=== PATIENT | female | born 1955 | race Caucasian/White ===

== ENCOUNTER → 2022-02-15 09:34 | Outpatient (BNVA) | payer OTHER, SELFPAY | PROVIDERS: PCP Physician Assistant; Visit Provider Nurse Practitioner Family | DX: E11.40 Type 2 diabetes mellitus with diabetic neuropathy, unspecified (principal); M54.16 Radiculopathy, lumbar region; M62.838 Other muscle spasm; M47.816 Spondylosis without myelopathy or radiculopathy, lumbar region | CPT/HCPCS: 99202 ==

== ENCOUNTER → 2022-06-20 11:35 | Outpatient (BNVA) | payer OTHER, SELFPAY | PROVIDERS: PCP Physician Assistant; Visit Provider Nurse Practitioner Family | DX: M47.26 Other spondylosis with radiculopathy, lumbar region (principal); M48.062 Spinal stenosis, lumbar region with neurogenic claudication; M62.838 Other muscle spasm; M51.36 Other intervertebral disc degeneration, lumbar region | CPT/HCPCS: 99212 ==

== ENCOUNTER → 2022-07-18 08:57 | Outpatient (BNVA) | payer OTHER, SELFPAY | PROVIDERS: PCP Physician Assistant; Visit Provider Nurse Practitioner Family | DX: E11.40 Type 2 diabetes mellitus with diabetic neuropathy, unspecified (principal); M51.36 Other intervertebral disc degeneration, lumbar region | CPT/HCPCS: 99212; J7336 ==

== ENCOUNTER 2022-11-11 12:53 | Outpatient (AMB) | payer OTHER, SELFPAY ==
--- NOTE | 2022-11-11 12:54 | A.OFFVIS_ITS ---
Intake Vital Signs 11/11/22 13:00 11/11/22 14:00 11/11/22 14:01 Height 5 ft 2 in Weight 185 lb 8 oz BMI 33.9 BP 131/60 144/73 H 134/66 Blood Pressure Location Lt brachial Lt brachial Lt brachial Position Sitting Sitting Sitting Pulse 94 91 94 Pulse Source Pulse Oximeter Pulse Oximeter Pulse Oximeter Pulse Oximetry (%) 97 98 98 Oxygen Delivery Method Room Air Room Air Room Air Comment 15 mins after qutenza application 30 mins after qutenza application Intake Visit Reasons: QUTENZA Intake Note: Teri comes in today for qutenza application to bilateral feet, Lot# [id number], Exp, [facility]- [id number]. Pain today 6.08/24 Bar Tender Required: Yes Allergies Penicillins Allergy (Unknown, Verified 11/11/22 13:01) Rash HPI HPI Comments History of Present Illness Details Patient presents for second round application of capsaicin 8% topical patch for diabetic neuropathy in bilateral feet. Denies any recent cough, cold, infection, fever or other significant changes in medical history since last office visit. Patient requests referral to android architect. Her last diabetic foot exam was over 2 years ago. Reports foot care and skin checks have been previously done by her family. She is concerned for untreated onychomycosis in her toenails chronically and has tried Nystatin applications, mupirocin 2%, silver sulfadiazine and many over the counter applications and foot soaks without significant improvement. Her toenails, especially both big toes have yellow discoloration and thick nails. Patient is wearing tight shoes. She reports significant numbness and weakness in her legs for which she uses walker with transfers and ambulation. PRIOR: Patient presents today for follow up for worsening chronic lower back pain. She is accompanied by her daughter. Patient ambulates slowly with use of walker. She continues to experience spinal stenosis-related pain in right L5-S1 distribution. She is sitting with bending forward position to relieve her radicular pain. She has numbness and tingling in her bilateral lower legs and feet due to diabetic neuropathy but also increased heaviness and numbness in her RLE with walking or standing. Qutenza (capsaicin 8%) patch has been approved and we will schedule her in office application. EMLA cream script was sent to her pharmacy. Patient reports she recently completed oral prednisone taper through her PCP office. Patient's daughter reports most recent A1C was elevated, over 9.0. Patient is poor candidate for steroid therapy. She has completed lumbar spine MRI on 06/12/22 ordered by her PCP. These results are not available today. We reviewed records from [facility] and lumbar spine MRI with significant changes at L5-S1 level as noted below. Patient reports she was seeing chiropractor for chronic lower back pain in 2019 and after therapy, she developed severe left sided pain with sciatica and could not walk. The MRI in 2019 was completed after chiropractic session. Patient reports she was referred to neurosurgery but contracted COVID illness and was hospitalized for 21 days at [facility], including intubation. Patient reports she has completed PT since then and has been referred back to PT. PRIOR: Patient is a pleasant 66 years old Martiniquais speaking female who presents with chronic peripheral neuropathy in both of her feet and hands, bilateral shoulder pain and chronic back pain. She attributes her pain symptoms to degenerated discs in her spine, diabetes and arthritis. Denies any recent trauma, injury or falls. Patient reports she has been diabetic for over 25 years and her most recent A1C has been around 9. She reports hot burning, numbness and tingling with decreased sensation in her feet, mostly no sensation in her toes that happen to cramp and lock in frequently. Patient reports she used to follow Dr. Rizvi for back pain in the past for history of lumbar disc protrusions and herniations, spinal stenosis with consideration of back surgery but has declined it in 2019. Patient also states she had an unpleasant experience with an attempt for lumbar ALVERTO and had to abort her procedure due to significant pain. Patient reports progressive back and leg pain, worse with walking. She states the back pain radiates across her low back and radiates down the anterior legs to shins on the right side. Her symptoms worsen with walking or standing for 5 or less minutes. Patient reports increased pain in her shoulders with overhead arm use. Pain is described as constant dull, sore, hurting, aching, heavy, punishing, killing, tugging, pulling, wrenching, tiring, exhausting, hot burning, scalding, searing, tingling and stinging. Patient is using a walker with ambulation and reports that while walking she has to stop and take breaks frequently. She also reports using a commode at night. Patient notes partial pain relief with leaning forward. She rates her pain 7-8/10 on average doing small things around the house and 9-10/10 when walking. Patient denies any fever, abdominal or groin pain, weight changes, bowel/bladder incontinence or saddle anesthesia. Patient reports she completed many sessions of PT and HEP which was helpful for short term pain relief. She also uses the TENS unit. Patient has been taking Ibuprofen, diclofenac gel and lidocaine patches with minimal pain relief. She wears customized shoes and reports undergoing a diabetic foot exam annually. Patient reports she completed lumbar spine MRI and xrays at [facility] within the past 2 years. These results are not available for review today. Lumbar spine MRI done in 2005 showed minimal disc bulging at L4-5. [facility] Medical History (Updated 11/11/22 @ 13:15 by DONALD Espinosa) Chronic midline low back pain with right-sided sciatica Chronic painful diabetic neuropathy Essential hypertension Lumbar radiculopathy, chronic Onychomycosis Review of Systems Const All systems reviewed & are unremarkable except as noted in HPI and below Physical Exam Vital Signs: Last Vital Signs Pulse 94 11/11/22 13:00 BP 131/60 11/11/22 13:00 Pulse Ox 97 11/11/22 13:00 Oxygen Delivery Method Room Air 11/11/22 13:00 BMI result Body Mass Index 33.9 General: Appears afebrile. Alert and oriented. Mood and affect appropriate. Follows and participates in conversation appropriately. Respiratory effort is unlabored. No cough. Able to transition from sit to stand with the use of walker. Ambulates with bilaterally normal heel strike and toe off. Cardio Jugular venous distension: no JVD Bruits: no carotid bruits Peripheral pulses: radial pulses present, popliteal pulses present and dorsalis pedis present Skin Nails: yellow and thickened (bilateral toenails) Extrem Other: No soft tissue swelling, redness or warmth. There is decreased sensation over the soles of the feet and toes, especially big toes and lateral foot bilaterally. Left great toe with scabbed area due, healing, no bleeding or drainage. Bilateral toenails with yellow discoloration and thick toenails. Office Procedures Topical Capsaicin Date 1:: 07/18/22 Date 2:: 11/11/22 Main area of pain on the body: Dorsal and plantar regions of bilateral feet. Small scab left big toe. Laterality: Bilateral Location of left foot pain: Plantar and Dorsal Location of right foot pain: Plantar and Dorsal Quality of pain: Aching, Burning, Numb-like, Tiring and Sharp Details:: Two patches, 560 cm2 were utilized per each foot. EMLA Cream (lidocaine 2.5% and prilocaine 2.5%) was applied prior to application of the patch by patient. The patient tolerated the procedure well. Her vitals signs remained stable throughout the procedure. She denies any chest pain, headache, dizziness or nausea. Patient was able to complete the stipulated 30 minutes of the therapeutic application without any discomfort. Office Meds capsaicin-skin cleanser 8 % Performing Provider: DONALD Espinosa Administered by: DONALD Espinosa on 11/11/22 13:18 Dose Route Admin Location Lot Number Expiration Date NDC Creative Writing Teacher 4 ea topical [facility] [id number] 04/17/25 21343-988-08 [employer] Assessment & Plan Assessment & Plan (1) Chronic painful diabetic neuropathy: Code(s): E11.40 - Type 2 diabetes mellitus with diabetic neuropathy, unspecified (2) Onychomycosis: Code(s): B35.1 - Tinea unguium Plan For onychomycosis and DPN, we will refer patient to podiatry. Patient instructed to wear cotton socks and change 2-3 times per day, wear shoes that are breathable, wear foot protection in shared showers and other public areas, manage diabetes with A1C goal >7.0. Script sent for efinaconazole 10% topical daily application. Information provided to patient and family on medication, side effects and how to administer it. Patient encouraged to follow up with her PCP if no improvement in symptoms. Patient is status post 2nd round of application of topical capsaicin 8% for diabetic neuropathy in bilateral feet. We avoided left big toe with scabbed area during application. Patient reports mild improvement in her neuropathy symptoms since first capsaicin application and Patient tolerated the procedure without significant discomfort with application of EMLA cream prior to the procedure. She was discharged home in stable condition with discharge instructions. Follow up as needed. Greater than 45 minutes were spent in therapeutic application and in coordination of the care. Orders: Orders AMB Capsaicin Patch - Practice Supplied Today E11.40 - Type 2 diabetes mellitus with diabetic neuropathy, unspecified Referrals Podiatry Referral B35.1 - Tinea unguium, E11.40 - Type 2 diabetes mellitus with diabetic neuropathy, unspecified Medications: New efinaconazole 10% 1 appl topical DAILY 48 weeks 8 mL 0RF Coding Level of Care Code Est Pt Level 5 (50089) Diagnoses Chronic painful diabetic neuropathy E11.40 Onychomycosis B35.1
[2022-11-11 13:00] VITALS: BP 131/60; PULSE 94; O2SAT 97; BMI 33.9
[2022-11-11 14:00] VITALS: BP 144/73; PULSE 91; O2SAT 98
[2022-11-11 14:01] VITALS: BP 134/66; PULSE 94; O2SAT 98
== END 2022-11-11 14:11 | disposition home or self-care (01) ==
PROVIDERS: PCP Physician Assistant; Visit Provider Nurse Practitioner Family
DX: E11.40 Type 2 diabetes mellitus with diabetic neuropathy, unspecified (principal); B35.1 Tinea unguium
CPT/HCPCS: 17999; 99215

== ENCOUNTER → 2022-11-11 12:53 | Outpatient (BNVA) | payer OTHER, SELFPAY | PROVIDERS: PCP Physician Assistant; Visit Provider Nurse Practitioner Family | DX: E11.40 Type 2 diabetes mellitus with diabetic neuropathy, unspecified (principal); B35.1 Tinea unguium | CPT/HCPCS: 17999; 99212; J7336 ==

== ENCOUNTER 2023-02-13 10:45 | Outpatient (AMB) | payer OTHER, SELFPAY ==
--- NOTE | 2023-02-13 10:49 | A.OFFVIS_ITS ---
Intake Vital Signs 02/13/23 10:52 02/13/23 11:18 02/13/23 11:49 Height 5 ft 2 in Weight 185 lb BMI 33.8 BP 174/75 H 174/71 H 175/73 H Blood Pressure Location Lt brachial Rt brachial Rt brachial Position Sitting Sitting Sitting Respiration 14 Pulse 87 82 84 Pulse Source Pulse Oximeter Pulse Oximeter Pulse Oximeter Pulse Oximetry (%) 97 97 95 Oxygen Delivery Method Room Air Room Air Room Air Intake Visit Reasons: Clint ADKINS did not take BP med this AM Intake Note: Pt did not take BP med this AM, will take when she gets home today. Allergies Penicillins Allergy (Unknown, Verified 02/13/23 10:51) Rash Medication List - Last Reconciled 02/13/23 by Judy Abraham, SALES STORE CHECKER amlodipine 2.5 mg PO DAILY aspirin 81 mg PO DAILY blood sugar diagnostic (FreeStyle Lite Strips) As directed cholecalciferol (vitamin D3) 50 mcg PO DAILY cyanocobalamin (vitamin B-12) mcg IM cyclobenzaprine 10 mg PO BEDTIME PRN efinaconazole 10% 1 appl topical DAILY 48 weeks gabapentin 300 mg PO BID 30 days ibuprofen 600 mg PO TID insulin glargine (Lantus Solostar U-100 Insulin) units subcut lidocaine-prilocaine 2.5-2.5 % 1 appl topical ONCE 1 day lisinopril 20 mg PO BID magnesium oxide 400 mg PO DAILY metformin 1,000 mg PO BID methocarbamol 750 mg PO BID PRN mupirocin 2% 1 appl topical BID-TID nystatin 1 appl topical BID-TID nystatin topical DAILY PRN omeprazole 40 mg PO DAILY pen needle,diabetic dual safty (BD AutoShield Duo Pen Needle) As directed rosuvastatin 5 mg PO DAILY semaglutide (Ozempic) mg subcut semaglutide (Ozempic) mg subcut silver sulfadiazine 1% appl topical syringe with needle (BD Luer-Jeremías Syringe) As directed triamcinolone acetonide 0.1% 1 appl topical BID-TID HPI HPI Comments History of Present Illness Details Patient presents for third round application of capsaicin 8% topical patch for diabetic neuropathy in bilateral feet. . Patient reports she has not hear from Brazing Machine Tender office that we sent referral. Her last diabetic foot exam was over 2 years ago. Reports foot care and skin checks have been done by her family. She has reached out to her PCP office and will be seeing Brazing Machine Tender in [facility] next month. Patient continues to endorse significant numbness, tingling and weakness in her legs for which she uses walker with transfers and ambulation. Patient reports improving foot pain, especially in her toes and under toenails at night with lesser sleep interruptions since starting on Qutenza applications. Denies any recent cough, cold, infection, fever or other significant changes in medical history since last office visit. PRIOR: Patient presents today for follow up for worsening chronic lower back pain. She is accompanied by her daughter. Patient ambulates slowly with use of walker. She continues to experience spinal stenosis-related pain in right L5-S1 distribution. She is sitting with bending forward position to relieve her radicular pain. She has numbness and tingling in her bilateral lower legs and feet due to diabetic neuropathy but also increased heaviness and numbness in her RLE with walking or standing. Qutenza (capsaicin 8%) patch has been approved and we will schedule her in office application. EMLA cream script was sent to her pharmacy. Patient reports she recently completed oral prednisone taper through her PCP office. Patient's daughter reports most recent A1C was elevated, over 9.0. Patient is poor candidate for steroid therapy. She has completed lumbar spine MRI on 06/12/22 ordered by her PCP. These results are not available today. We reviewed records from [facility] and lumbar spine MRI with significant changes at L 5-S1 level as noted below. Patient reports she was seeing chiropractor for chronic lower back pain in 2019 and after therapy, she developed severe left sided pain with sciatica and could not walk. The MRI in 2019 was completed after chiropractic session. Patient reports she was referred to neurosurgery but contracted COVID illness and was hospitalized for 21 days at [facility], including intubation. Patient reports she has completed PT since then and has been referred back to PT. PRIOR: Patient is a pleasant 66 years old South African speaking female who presents with chronic peripheral neuropathy in both of her feet and hands, bilateral shoulder pain and chronic back pain. She attributes her pain symptoms to degenerated discs in her spine, diabetes and arthritis. Denies any recent trauma, injury or falls. Patient reports she has been diabetic for over 25 years and her most recent A1C has been around 9. She reports hot burning, numbness and tingling with decreased sensation in her feet, mostly no sensation in her toes that happen to cramp and lock in frequently. Patient reports she used to follow Dr. Rizvi for back pain in the past for history of lumbar disc protrusions and herniations, spinal stenosis with consideration of back surgery but has declined it in 2019. Patient also states she had an unpleasant experience with an attempt for lumbar ALVERTO and had to abort her procedure due to significant pain. Patient reports progressive back and leg pain, worse with walking. She states the back pain radiates across her low back and radiates down the anterior legs to shins on the right side. Her symptoms worsen with walking or standing for 5 or less minutes. Patient reports increased pain in her shoulders with overhead arm use. Pain is described as constant dull, sore, hurting, aching, heavy, punishing, killing, tugging, pulling, wrenching, tiring, exhausting, hot burning, scalding, searing, tingling and stinging. Patient is using a walker with ambulation and reports that while walking she has to stop and take breaks frequently. She also reports using a commode at night. Patient notes partial pain relief with leaning forward. She rates her pain 7-8/10 on average doing small things around the house and 9-10/10 when walking. Patient denies any fever, abdominal or groin pain, weight changes, bowel/bladder incontinence or saddle anesthesia. Patient reports she completed many sessions of PT and HEP which was helpful for short term pain relief. She also uses the TENS unit. Patient has been taking Ibuprofen, diclofenac gel and lidocaine patches with minimal pain relief. She wears customized shoes and reports undergoing a diabetic foot exam annually. Patient reports she completed lumbar spine MRI and xrays at [facility] within the past 2 years. These results are not available for review today. Lumbar spine MRI done in 2005 showed minimal disc bulging at L4-5. [facility] Medical History Chronic midline low back pain with right-sided sciatica Onychomycosis Essential hypertension Lumbar radiculopathy, chronic Chronic painful diabetic neuropathy Review of Systems Const All systems reviewed & are unremarkable except as noted in HPI and below Physical Exam Vital Signs: Last Vital Signs Pulse 82 02/13/23 11:18 Resp 14 10/30/23 10:52 BP 174/71 H 02/13/23 11:18 Pulse Ox 97 02/13/23 11:18 Oxygen Delivery Method Room Air 02/13/23 11:18 BMI result Body Mass Index 33.8 General: Appears afebrile. Alert and oriented. Mood and affect appropriate. Follows and participates in conversation appropriately. Respiratory effort is unlabored. No cough. Able to transition from sit to stand with the use of walker. Ambulates with bilaterally normal heel strike and toe off. Cardio Jugular venous distension: no JVD Bruits: no carotid bruits Peripheral pulses: radial pulses present, popliteal pulses present and dorsalis pedis present Extrem Other: No soft tissue swelling, redness or warmth. There is decreased sensation over the soles of the feet and toes, especially big toes and lateral foot bilaterally. Bilateral toenails with yellow discoloration and thick toenails. General: Yes capillary refill normal, Yes no clubbing, cyanosis or edema and Yes no calf tenderness Office Procedures Topical Capsaicin Date 1:: 07/18/22 Date 2:: 11/11/22 Date 3:: 02/13/23 Laterality: Bilateral Location of left foot pain: Plantar, Dorsal and Lateral Location of right foot pain: Plantar, Dorsal and Lateral Quality of pain: Aching, Burning, Gnawing, Numb-like and Tiring Details:: Two patches, 560 cm2 were utilized per each foot. EMLA Cream was not applied prior to application of the patch by patient. Patient reports applying diabetic foot cream and also has been utilizing Lidocaine patches on her foot. Both feet were cleansed prior to Qutenza application. The patient tolerated the procedure well. Her vitals signs remained stable throughout the procedure. She denies any chest pain, headache, dizziness or nausea. Patient was able to complete the stipulated 30 minutes of the therapeutic application without any discomfort. Office Meds capsaicin-skin cleanser 8 % topical kit Performing Provider: DONALD Espinosa Performing Location: [facility] Administered by: DONALD Espinosa on 02/13/23 10:58 Dose Route Admin Location Dispensed Lot Number Expiration Date NDC Cna Pct 4 ea topical [facility] 4 ea [id number] 04/17/25 17012-396-37 [employer] Assessment & Plan Assessment & Plan (1) Chronic painful diabetic neuropathy: Code(s): E11.40 - Type 2 diabetes mellitus with diabetic neuropathy, unspecified (2) Onychomycosis: Code(s): B35.1 - Tinea unguium (3) Lumbar degenerative disc disease: Code(s): M51.36 - Other intervertebral disc degeneration, lumbar region Plan Pending Podiatry Referral for onychomycosis and DPN in [facility] next month. Patient instructed to wear cotton socks and change 2-3 times per day, wear shoes that are breathable, wear foot protection in shared showers and other public areas, manage diabetes with A1C goal >7.0. Patient is status post 3rd round of application of topical capsaicin 8% for diabetic neuropathy in bilateral feet. Patient reports mild improvement in her neuropathy symptoms since second capsaicin application and will continue to monitor her symptoms. Patient tolerated the procedure without significant discomfort. She was discharged home in stable condition with discharge instruct ions. Patient was reminded to take her BP medication at home which she missed to take due searching for EMLA cream. Follow up as needed. Greater than 39 minutes were spent in therapeutic application and in coordination of the care. Orders: Orders AMB Capsaicin Patch - Practice Supplied Today E11.40 - Type 2 diabetes mellitus with diabetic neuropathy, unspecified Coding Level of Care Code Est Pt Level 4 (76821) Diagnoses Chronic painful diabetic neuropathy E11.40 Onychomycosis B35.1 Lumbar degenerative disc disease M51.36
[2023-02-13 10:52] VITALS: BP 174/75; PULSE 87; RESP 14; O2SAT 97; BMI 33.8
[2023-02-13 11:18] VITALS: BP 174/71; PULSE 82; O2SAT 97
[2023-02-13 11:49] VITALS: BP 175/73; PULSE 84; O2SAT 95
== END 2023-02-13 11:52 | disposition home or self-care (01) ==
PROVIDERS: PCP Physician Assistant; Visit Provider Nurse Practitioner Family
DX: E11.40 Type 2 diabetes mellitus with diabetic neuropathy, unspecified (principal); B35.1 Tinea unguium; M51.36 Other intervertebral disc degeneration, lumbar region
CPT/HCPCS: 17999; 99214

== ENCOUNTER → 2023-02-13 10:45 | Outpatient (BNVA) | payer OTHER, SELFPAY | PROVIDERS: PCP Physician Assistant; Visit Provider Nurse Practitioner Family | DX: E11.40 Type 2 diabetes mellitus with diabetic neuropathy, unspecified (principal); M51.36 Other intervertebral disc degeneration, lumbar region; G89.29 Other chronic pain; M54.41 Lumbago with sciatica, right side; B35.1 Tinea unguium | CPT/HCPCS: 17999; 99212; J7336 ==

== ENCOUNTER 2023-05-16 11:36 | Outpatient (AMB) | payer OTHER, SELFPAY ==
--- NOTE | 2023-05-16 11:37 | MHC.OFFVIS ---
Intake Vital Signs 05/16/23 12:27 05/16/23 12:28 05/16/23 12:41 Height 5 ft 2 in Weight 180 lb BMI 32.9 BP 163/74 H 182/89 H 143/76 H Blood Pressure Location Lt brachial Lt brachial Lt brachial Position Sitting Sitting Sitting Pulse 96 95 88 Pulse Source Pulse Oximeter Pulse Oximeter Pulse Oximeter Pulse Oximetry (%) 98 98 99 Oxygen Delivery Method Room Air Room Air Comment 15 mins after qutenza application 30 mins after qutenza application Intake Visit Reasons: QUTENZA Intake Note: Pain today 6/10 Ell Tutor Required: No Accompanied by: Daughter Allergies Penicillins Allergy (Unknown, Verified 05/16/23 11:41) Rash HPI HPI Comments History of Present Illness Details Patient presents for 4th application of capsaicin 8% topical patch for diabetic neuropathy in bilateral feet. Patient reports she finally was seen by Broth Setter since last visit and completed diabetic foot exam. Patient continues to endorse significant numbness and tingling in her feet, worse in right foot and weakness in her legs for which she uses walker with transfers and ambulation. Patient reports improving foot pain, especially in her toes and better sleep. Reports 6/10 in her low back pain, worse with walking or prolonged standing. Denies any recent cough, cold, infection, fever or other significant changes in medical history since last office visit. PRIOR: Patient presents today for follow up for worsening chronic lower back pain. She is accompanied by her daughter. Patient ambulates slowly with use of walker. She continues to experience spinal stenosis-related pain in right L5-S1 distribution. She is sitting with bending forward position to relieve her radicular pain. She has numbness and tingling in her bilateral lower legs and feet due to diabetic neuropathy but also increased heaviness and numbness in her RLE with walking or standing. Qutenza (capsaicin 8%) patch has been approved and we will schedule her in office application. EMLA cream script was sent to her pharmacy. Patient reports she recently completed oral prednisone taper through her PCP office. Patient's daughter reports most recent A1C was elevated, over 9.0. Patient is poor candidate for steroid therapy. She has completed lumbar spine MRI on 06/12/22 ordered by her PCP. These results are not available today. We reviewed records from [facility] and lumbar spine MRI with significant changes at L5-S1 level as noted below. Patient reports she was seeing chiropractor for chronic lower back pain in 2019 and after therapy, she developed severe left sided pain with sciatica and could not walk. The MRI in 2019 was completed after chiropractic session. Patient reports she was referred to neurosurgery but contracted COVID illness and was hospitalized for 21 days at [facility], including intubation. Patient reports she has completed PT since then and has been referred back to PT. PRIOR: Patient is a pleasant 66 years old Jamaican speaking female who presents with chronic peripheral neuropathy in both of her feet and hands, bilateral shoulder pain and chronic back pain. She attributes her pain symptoms to degenerated discs in her spine, diabetes and arthritis. Denies any recent trauma, injury or falls. Patient reports she has been diabetic for over 25 years and her most recent A1C has been around 9. She reports hot burning, numbness and tingling with decreased sensation in her feet, mostly no sensation in her toes that happen to cramp and lock in frequently. Patient reports she used to follow Dr. Rizvi for back pain in the past for history of lumbar disc protrusions and herniations, spinal stenosis with consideration of back surgery but has declined it in 2019. Patient also states she had an unpleasant experience with an attempt for lumbar ALVERTO and had to abort her procedure due to significant pain. Patient reports progressive back and leg pain, worse with walking. She states the back pain radiates across her low back and radiates down the anterior legs to shins on the right side. Her symptoms worsen with walking or standing for 5 or less minutes. Patient reports increased pain in her shoulders with overhead arm use. Pain is described as constant dull, sore, hurting, aching, heavy, punishing, killing, tugging, pulling, wrenching, tiring, exhausting, hot burning, scalding, searing, tingling and stinging. Patient is using a walker with ambulation and reports that while walking she has to stop and take breaks frequently. She also reports using a commode at night. Patient notes partial pain relief with leaning forward. She rates her pain 7-8/10 on average doing small things around the house and 9-10/10 when walking. Patient denies any fever, abdominal or groin pain, weight changes, bowel/bladder incontinence or saddle anesthesia. Patient reports she completed many sessions of PT and HEP which was helpful for short term pain relief. She also uses the TENS unit. Patient has been taking Ibuprofen, diclofenac gel and lidocaine patches with minimal pain relief. She wears customized shoes and reports undergoing a diabetic foot exam annually. Patient reports she completed lumbar spine MRI and xrays at [facility] within the past 2 years. These results are not available for review today. Lumbar spine MRI done in 2005 showed minimal disc bulging at L4-5. [facility] Medical History Chronic midline low back pain with right-sided sciatica Onychomycosis Essential hypertension Lumbar radiculopathy, chronic Chronic painful diabetic neuropathy Review of Systems Const All systems reviewed & are unremarkable except as noted in HPI and below Physical Exam General: Appears afebrile. Alert and oriented. Mood and affect appropriate. Follows and participates in conversation appropriately. Respiratory effort is unlabored. No cough. Able to transition from sit to stand with the use of walker. Ambulates with bilaterally normal heel strike and toe off. Cardio Jugular venous distension: no JVD Bruits: no carotid bruits Peripheral pulses: radial pulses present, popliteal pulses present and dorsalis pedis present Back/Spine/Pelvis Cervical Spine: cervical ROM normal and No Cervical spine tenderness Thoracic/Lumbar Spine: pain with thoraco-lumbar ROM, thoraco-lumbar ROM limited, No thoracic spinal tenderness and lumbar spinal tenderness at L4 and at L5 Extrem Other: No soft tissue swelling, redness or warmth. There is decreased sensation over the soles of the feet and toes, especially big toes and lateral foot bilaterally, right worse than left. Bilateral toenails with yellow discoloration and thick toenails. Normal capillary refill. No clubbing, cyanosis or edema. No calf tenderness. Pulses +2 throughout bilaterally. Office Procedures Topical Capsaicin Date 1:: 07/18/22 Date 2:: 11/11/22 Date 3:: 02/13/23 Date 4:: 05/16/23 Main area of pain on the body: Bilateral feet and toes Laterality: Bilateral Location of left foot pain: Anterior, Posterior, Plantar and Dorsal Location of right foot pain: Anterior, Posterior, Plantar and Dorsal Quality of pain: Aching, Nagging, Burning, Gnawing and Numb-like Details:: Two patches, 560 cm2 were utilized per each foot. EMLA Cream (lidocaine 2.5% and prilocaine 2.5%) was applied at home by patient prior to application of the patches. The patient tolerated the procedure well. Patient?s vitals signs remained stable throughout the procedure. Patient was able to complete the stipulated 40 minutes of the therapeutic application without any discomfort. Office Meds capsaicin-skin cleanser 8 % topical kit Performing Provider: DONALD Espinosa Performing Location: [facility] Administered by: DONALD Espinosa on 05/16/23 11:57 Dose Route Admin Location Dispensed Lot Number Expiration Date [employer] Storage Consultant 4 ea topical [facility] 4 ea [id number] 09/15/25 88144-012-29 [employer] Results Reviewed Results Reviewed: MRI OF THE LUMBAR SPINE 06/06/2005 at [facility] HISTORY: 49 year old with low back pain radiating to the right lower extremity. FINDINGS: The lumbar spine is in anatomic alignment. Vertebral body heights are well maintained. The conus is unremarkable in morphology, signal and position. Bone marrow signal intensity appears normal. The intervertebral disc space heights and signal are relatively well maintained throughout the lumbar spine. A few small Schmorl?s nodes are seen along the inferior end plate of L1 and along the superior end plate of L3. At the L4-5 level, there is minimal broad based disc bulging with mild flattening of the anterior thecal sac without significant neural foraminal compromise. The remainder of the lumbar spine demonstrates no significant disc bulge or herniation and no significant spondylosis or facet arthrosis. There is no evidence of any significant central spinal stenosis or neural foraminal compromise. IMPRESSION: 1. Minimal disc bulging at L4-5. There is no evidence of significant spinal stenosis or nerve root impingement. Assessment & Plan Assessment & Plan (1) Chronic painful diabetic neuropathy: Code(s): E11.40 - Type 2 diabetes mellitus with diabetic neuropathy, unspecified (2) Lumbar degenerative disc disease: Code(s): M51.36 - Other intervertebral disc degeneration, lumbar region (3) Lumbar spondylosis: Code(s): M47.816 - Spondylosis without myelopathy or radiculopathy, lumbar region Plan Patient is status post 4th application of topical capsaicin 8% for diabetic neuropathy in bilateral feet. Patient reports moderate improvement in her neuropathy symptoms since starting capsaicin applications and will continue to monitor her symptoms. Patient tolerated the procedure without significant discomfort. She was discharged home in stable condition with discharge instructions. Follow up for next Qutenza application and sooner as needed. Greater than 40 minutes were spent in therapeutic application and in coordination of the care. Orders: Orders AMB Capsaicin Patch - Practice Supplied Today E11.40 - Type 2 diabetes mellitus with diabetic neuropathy, unspecified Medications: Changed From lidocaine-prilocaine 2.5-2.5 % Apply to both feet 30 min prior to Qutenza patch application in office 1 appl topical ONCE 1 day 30 grams 1RF diabetic neuropathy E11.40 - Type 2 diabetes mellitus with diabetic neuropathy, unspecified To lidocaine-prilocaine 2.5-2.5 % Apply to both feet 15 min prior to Qutenza patch application in office 1 appl topical ONCE 1 day 30 grams 1RF diabetic neuropathy E11.40 - Type 2 diabetes mellitus with diabetic neuropathy, unspecified Coding Level of Care Code Est Pt Level 4 (56713) Diagnoses Chronic painful diabetic neuropathy E11.40 Lumbar degenerative disc disease M51.36 Lumbar spondylosis M47.816
[2023-05-16 12:27] VITALS: BP 163/74; PULSE 96; O2SAT 98; BMI 32.9
[2023-05-16 12:28] VITALS: BP 182/89; PULSE 95; O2SAT 98
[2023-05-16 12:41] VITALS: BP 143/76; PULSE 88; O2SAT 99
== END 2023-05-16 12:42 | disposition home or self-care (01) ==
PROVIDERS: PCP Physician Assistant; Visit Provider Nurse Practitioner Family
DX: E11.40 Type 2 diabetes mellitus with diabetic neuropathy, unspecified (principal); M51.36 Other intervertebral disc degeneration, lumbar region; M47.816 Spondylosis without myelopathy or radiculopathy, lumbar region
CPT/HCPCS: 17999; 99214

== ENCOUNTER → 2023-05-16 11:36 | Outpatient (BNVA) | payer OTHER, SELFPAY | PROVIDERS: PCP Physician Assistant; Visit Provider Nurse Practitioner Family | DX: E11.40 Type 2 diabetes mellitus with diabetic neuropathy, unspecified (principal); M51.36 Other intervertebral disc degeneration, lumbar region; M47.816 Spondylosis without myelopathy or radiculopathy, lumbar region | CPT/HCPCS: 17999; 99212; J7336 ==

== ENCOUNTER 2023-08-15 10:26 | Outpatient (AMB) | payer OTHER, SELFPAY ==
--- NOTE | 2023-08-15 10:28 | MHC.OFFVIS ---
Vital Signs 08/15/23 10:35 08/15/23 11:12 08/15/23 11:33 Height 5 ft 2 in Weight 182 lb BMI 33.3 BP 169/73 H 153/72 H 158/70 H Blood Pressure Location Lt brachial Lt brachial Lt brachial Position Sitting Sitting Sitting Pulse 96 83 88 Pulse Source Pulse Oximeter Pulse Oximeter Pulse Oximeter Pulse Oximetry (%) 99 98 98 Oxygen Delivery Method Room Air Room Air Room Air Comment 15 mins after qutenza application 30 mins after qutenza application Intake Visit Reasons: QUTENZA Intake Note: Pain today 6/10 Sanitary Landfill Operator Required: Yes Accompanied by: Family/Other Allergies Penicillins Allergy (Unknown, Verified 08/15/23 10:36) Rash HPI Comments Details: Patient presents for 5th application of capsaicin 8% topical patch for diabetic neuropathy in bilateral feet. Patient regularly sees Clinical Data Manager for diabetic foot exam and foot care. Patient reports improving foot pain, especially nighttime cramping in her toes and better sleep. Reports 6/10 in her low back pain, worse with walking or prolonged standing. Patient reports blood sugars are not well controlled yet and A1C remains elevated. Reports increased back pain in the morning accompanied with stiffness and aching. She continues to do home exercises and stretching which she finds beneficial. She takes Ibuprofen prn, Tylenol and OTC topical applications with minimal relief. Denies any recent cough, cold, infection, fever or other significant changes in medical history since last office visit. PRIOR: Patient presents today for follow up for worsening chronic lower back pain. She is accompanied by her daughter. Patient ambulates slowly with use of walker. She continues to experience spinal stenosis-related pain in right L5-S1 distribution. She is sitting with bending forward position to relieve her radicular pain. She has numbness and tingling in her bilateral lower legs and feet due to diabetic neuropathy but also increased heaviness and numbness in her RLE with walking or standing. Qutenza (capsaicin 8%) patch has been approved and we will schedule her in office application. EMLA cream script was sent to her pharmacy. Patient reports she recently completed oral prednisone taper through her PCP office. Patient's daughter reports most recent A1C was elevated, over 9.0. Patient is poor candidate for steroid therapy. She has completed lumbar spine MRI on 06/12/22 ordered by her PCP. These results are not available today. We reviewed records from [facility] and lumbar spine MRI with significant changes at L5-S1 level as noted below. Patient reports she was seeing chiropractor for chronic lower back pain in 2019 and after therapy, she developed severe left sided pain with sciatica and could not walk. The MRI in 2019 was completed after chiropractic session. Patient reports she was referred to neurosurgery but contracted COVID illness and was hospitalized for 21 days at [facility], including intubation. Patient reports she has completed PT since then and has been referred back to PT. PRIOR: Patient is a pleasant 66 years old Cameroonian speaking female who presents with chronic peripheral neuropathy in both of her feet and hands, bilateral shoulder pain and chronic back pain. She attributes her pain symptoms to degenerated discs in her spine, diabetes and arthritis. Denies any recent trauma, injury or falls. Patient reports she has been diabetic for over 25 years and her most recent A1C has been around 9. She reports hot burning, numbness and tingling with decreased sensation in her feet, mostly no sensation in her toes that happen to cramp and lock in frequently. Patient reports she used to follow Dr. Rizvi for back pain in the past for history of lumbar disc protrusions and herniations, spinal stenosis with consideration of back surgery but has declined it in 2019. Patient also states she had an unpleasant experience with an attempt for lumbar ALVERTO and had to abort her procedure due to significant pain. Patient reports progressive back and leg pain, worse with walking. She states the back pain radiates across her low back and radiates down the anterior legs to shins on the right side. Her symptoms worsen with walking or standing for 5 or less minutes. Patient reports increased pain in her shoulders with overhead arm use. Pain is described as constant dull, sore, hurting, aching, heavy, punishing, killing, tugging, pulling, wrenching, tiring, exhausting, hot burning, scalding, searing, tingling and stinging. Patient is using a walker with ambulation and reports that while walking she has to stop and take breaks frequently. She also reports using a commode at night. Patient notes partial pain relief with leaning forward. She rates her pain 7-8/10 on average doing small things around the house and 9-10/10 when walking. Patient denies any fever, abdominal or groin pain, weight changes, bowel/bladder incontinence or saddle anesthesia. Patient reports she completed many sessions of PT and HEP which was helpful for short term pain relief. She also uses the TENS unit. Patient has been taking Ibuprofen, diclofenac gel and lidocaine patches with minimal pain relief. She wears customized shoes and reports undergoing a diabetic foot exam annually. Patient reports she completed lumbar spine MRI and xrays at [facility] within the past 2 years. These results are not available for review today. Lumbar spine MRI done in 2005 showed minimal disc bulging at L4-5. [facility] Medical History Chronic midline low back pain with right-sided sciatica Onychomycosis Essential hypertension Lumbar radiculopathy, chronic Chronic painful diabetic neuropathy Review of Systems Const All systems reviewed & are unremarkable except as noted in HPI and below Physical Exam Vital Signs: Last Vital Signs Pulse 83 08/15/23 11:12 BP 153/72 H 08/15/23 11:12 Pulse Ox 98 08/15/23 11:12 Oxygen Delivery Method Room Air 08/15/23 11:12 BMI result Body Mass Index 33.3 General: Appears afebrile. Alert and oriented. Mood and affect appropriate. Follows and participates in conversation appropriately. Respiratory effort is unlabored. No cough. Able to transition from sit to stand with the use of walker. Ambulates with bilaterally normal heel strike and toe off. Back/Spine/Pelvis Cervical Spine: cervical ROM normal and No Cervical spine tenderness Thoracic/Lumbar Spine: thoracic and lumbar spine normal to inspection, Lasegue's sign negative, straight leg raise negative bilaterally, pain with thoraco-lumbar ROM, paraspinal muscle tenderness, thoraco-lumbar ROM limited, No thoracic spinal tenderness and lumbar spinal tenderness (L4-S1) Sacroiliac joints: bilaterally tender to palpation Extrem Other: No soft tissue swelling, redness or warmth. There is decreased sensation over the soles of the feet and toes, especially big toes and lateral foot bilaterally, right worse than left. Bilateral toenails with yellow discoloration and thick toenails. Normal capillary refill. No clubbing, cyanosis or edema. No calf tenderness. Pulses +2 throughout bilaterally. Office Procedures Topical Capsaicin Date(s) of prior application(s): 07/18/22, 11/11/22, 02/13/23, 05/16/23 Date 2:: 08/15/23 Main area of pain on the body: Bilateral feet and toes Laterality: Bilateral Location of left foot pain: Plantar, Proximal, Dorsal, Medial, Lateral and Distal Location of right foot pain: Plantar, Proximal, Dorsal, Medial, Lateral and Distal Quality of pain: Aching, Nagging, Burning, Gnawing, Numb-like and Tiring Details:: Two patches, 560 cm2 were utilized per each foot. EMLA Cream (lidocaine 2.5% and prilocaine 2.5%) was applied at home by patient prior to application of the patches. The patient tolerated the procedure well. Patient?s vitals signs remained stable throughout the procedure. Patient was able to complete the stipulated 35 minutes of the therapeutic application without any discomfort. Office Meds capsaicin-skin cleanser 8 % topical kit Performing Provider: DONALD Espinosa Performing Location: [facility] Administered by: DONALD Espinosa on 08/15/23 10:55 Dose Route Admin Location Dispensed Lot Number Expiration Date [facility] Didactic Instructor 4 ea topical [facility] 4 ea [id number] 09/15/25 [id number] [employer] Results Reviewed Results Reviewed: MRI OF THE LUMBAR SPINE 06/06/2005 at [facility] HISTORY: 49 year old with low back pain radiating to the right lower extremity. FINDINGS: The lumbar spine is in anatomic alignment. Vertebral body heights are well maintained. The conus is unremarkable in morphology, signal and position. Bone marrow signal intensity appears normal. The intervertebral disc space heights and signal are relatively well maintained throughout the lumbar spine. A few small Schmorl?s nodes are seen along the inferior end plate of L1 and along the superior end plate of L3. At the L4-5 level, there is minimal broad based disc bulging with mild flattening of the anterior thecal sac without significant neural foraminal compromise. The remainder of the lumbar spine demonstrates no significant disc bulge or herniation and no significant spondylosis or facet arthrosis. There is no evidence of any significant central spinal stenosis or neural foraminal compromise. IMPRESSION: 1. Minimal disc bulging at L4-5. There is no evidence of significant spinal stenosis or nerve root impingement. Assessment & Plan Assessment & Plan (1) Chronic painful diabetic neuropathy: Code(s): E11.40 - Type 2 diabetes mellitus with diabetic neuropathy, unspecified Category: Medical (2) Lumbar degenerative disc disease: Code(s): M51.36 - Other intervertebral disc degeneration, lumbar region Category: Medical (3) Lumbar spondylosis: Code(s): M47.816 - Spondylosis without myelopathy or radiculopathy, lumbar region Category: Medical (4) Muscle spasm: Code(s): M62.838 - Other muscle spasm Category: Medical Plan Patient is status post 5th application of topical capsaicin 8% for diabetic neuropathy in bilateral feet. Patient reports moderate improvement in her neuropathy symptoms since starting capsaicin applications and will continue to monitor her symptoms. Patient tolerated the procedure without significant discomfort. Script provided for Ketoprofen 10% topical gel. Patient is aware to avoid other NSAIDs or diclofenac gel. Patient was discharged home in stable condition with discharge instructions. Follow up for next Qutenza application and sooner as needed. Greater than 35 minutes were spent in therapeutic application and in coordination of the care. Orders: Orders AMB Capsaicin Patch - Practice Supplied Today E11.40 - Type 2 diabetes mellitus with diabetic neuropathy, unspecified Medications: New ketoprofen 10% 1 appl topical TID PRN 30 grams 2RF pain M47.816 - Spondylosis without myelopathy or radiculopathy, lumbar region, M51.36 - Other intervertebral disc degeneration, lumbar region Coding Level of Care Code Est Pt Level 4 (18428) Diagnoses Chronic painful diabetic neuropathy E11.40 Lumbar degenerative disc disease M51.36 Lumbar spondylosis M47.816 Muscle spasm M62.838
[2023-08-15 10:35] VITALS: BP 169/73; PULSE 96; O2SAT 99; BMI 33.3
[2023-08-15 11:12] VITALS: BP 153/72; PULSE 83; O2SAT 98
[2023-08-15 11:33] VITALS: BP 158/70; PULSE 88; O2SAT 98
== END 2023-08-15 11:34 | disposition home or self-care (01) ==
PROVIDERS: PCP Physician Assistant; Visit Provider Nurse Practitioner Family
DX: E11.40 Type 2 diabetes mellitus with diabetic neuropathy, unspecified (principal); M51.36 Other intervertebral disc degeneration, lumbar region; M47.816 Spondylosis without myelopathy or radiculopathy, lumbar region; M62.838 Other muscle spasm
CPT/HCPCS: 17999; 99214

== ENCOUNTER → 2023-08-15 10:26 | Outpatient (BNVA) | payer OTHER, SELFPAY | PROVIDERS: PCP Physician Assistant; Visit Provider Nurse Practitioner Family | DX: E11.40 Type 2 diabetes mellitus with diabetic neuropathy, unspecified (principal); M51.36 Other intervertebral disc degeneration, lumbar region; M47.816 Spondylosis without myelopathy or radiculopathy, lumbar region; M62.838 Other muscle spasm | CPT/HCPCS: 17999; 99212; J7336 ==

== ENCOUNTER 2023-11-07 09:21 | Outpatient (AMB) | payer OTHER, SELFPAY ==
--- NOTE | 2023-11-07 09:22 | MHC.OFFVIS ---
Vital Signs 11/07/23 09:28 11/07/23 09:29 11/07/23 09:46 11/07/23 09:58 11/07/23 10:50 11/07/23 10:52 Height 5 ft 2 in Weight 180 lb 2 oz BMI 32.9 BP 197/85 H 212/91 H 180/82 H 168/74 H 140/68 H 140/68 H Blood Pressure Location Lt brachial Rt brachial Lt brachial Lt brachial Lt brachial Lt brachial Position Sitting Sitting Sitting Sitting Sitting Sitting Pulse 80 79 72 68 Pulse Source Pulse Oximeter Pulse Oximeter Pulse Oximeter Pulse Oximeter Pulse Oximetry (%) 99 98 98 98 Oxygen Delivery Method Room Air Room Air Room Air Room Air Comment Bp recheck manually 15 min after qutenza application 30 mins after qutenza application Intake Visit Reasons: QUTENZA Intake Note: Pain today 7/10 [facility] Required: Yes [facility] Language: Croatian Accompanied by: Family/Other Allergies Penicillins Allergy (Unknown, Verified 11/07/23 09:30) Rash HPI Comments Details: Patient presents for 6th application of capsaicin 8% topical patch for diabetic neuropathy in bilateral feet. Patient reports improving foot pain, especially nighttime cramping in her toes and better sleep. Reports 7/10 in her low back pain, worse with walking or prolonged standing. Patient reports blood sugars and A1C remains elevated. Reports increased back pain in the morning accompanied with stiffness and aching. She is unable to participate in PT at this time due to significant pain but continues home stretching exercises. She takes Ibuprofen prn, Tylenol and OTC topical applications with minimal relief. Patient presents today with elevated BP but asymptomatic. Denies any chest pain or tightness or pressure, shortness of breaths, vision changes, nausea, dizziness or headache. [place] and has not taking her BP medications this morning yet. She reports she has upcoming follow up with her PCP as she needs refill for lisinopril and amlodipine. Manual recheck for BP is noted above. Refills were sent and picked up by patient's family during today's visit. Patient took her usual BP medications and BP has improved. She reports also elevated levels of stress due to her sister recent's medical diagnosis for which she significantly worries for her. Denies any recent cough, cold, infection, fever or other significant changes in medical history since last office visit. PRIOR: Patient presents today for follow up for worsening chronic lower back pain. She is accompanied by her daughter. Patient ambulates slowly with use of walker. She continues to experience spinal stenosis-related pain in right L5-S1 distribution. She is sitting with bending forward position to relieve her radicular pain. She has numbness and tingling in her bilateral lower legs and feet due to diabetic neuropathy but also increased heaviness and numbness in her RLE with walking or standing. Qutenza (capsaicin 8%) patch has been approved and we will schedule her in office application. EMLA cream script was sent to her pharmacy. Patient reports she recently completed oral prednisone taper through her PCP office. Patient's daughter reports most recent A1C was elevated, over 9.0. Patient is poor candidate for steroid therapy. She has completed lumbar spine MRI on 06/12/22 ordered by her PCP. These results are not available today. We reviewed records from [facility] and lumbar spine MRI with significant changes at L5-S1 level as noted below. Patient reports she was seeing chiropractor for chronic lower back pain in 2019 and after therapy, she developed severe left sided pain with sciatica and could not walk. The MRI in 2019 was completed after chiropractic session. Patient reports she was referred to neurosurgery but contracted COVID illness and was hospitalized for 21 days at [facility], including intubation. Patient reports she has completed PT since then and has been referred back to PT. PRIOR: Patient is a pleasant 66 years old Martiniquais speaking female who presents with chronic peripheral neuropathy in both of her feet and hands, bilateral shoulder pain and chronic back pain. She attributes her pain symptoms to degenerated discs in her spine, diabetes and arthritis. Denies any recent trauma, injury or falls. Patient reports she has been diabetic for over 25 years and her most recent A1C has been around 9. She reports hot burning, numbness and tingling with decreased sensation in her feet, mostly no sensation in her toes that happen to cramp and lock in frequently. Patient reports she used to follow Dr. Rizvi for back pain in the past for history of lumbar disc protrusions and herniations, spinal stenosis with consideration of back surgery but has declined it in 2019. Patient also states she had an unpleasant experience with an attempt for lumbar ALVERTO and had to abort her procedure due to significant pain. Patient reports progressive back and leg pain, worse with walking. She states the back pain radiates across her low back and radiates down the anterior legs to shins on the right side. Her symptoms worsen with walking or standing for 5 or less minutes. Patient reports increased pain in her shoulders with overhead arm use. Pain is described as constant dull, sore, hurting, aching, heavy, punishing, killing, tugging, pulling, wrenching, tiring, exhausting, hot burning, scalding, searing, tingling and stinging. Patient is using a walker with ambulation and reports that while walking she has to stop and take breaks frequently. She also reports using a commode at night. Patient notes partial pain relief with leaning forward. She rates her pain 7-8/10 on average doing small things around the house and 9-10/10 when walking. Patient denies any fever, abdominal or groin pain, weight changes, bowel/bladder incontinence or saddle anesthesia. Patient reports she completed many sessions of PT and HEP which was helpful for short term pain relief. She also uses the TENS unit. Patient has been taking Ibuprofen, diclofenac gel and lidocaine patches with minimal pain relief. She wears customized shoes and reports undergoing a diabetic foot exam annually. Patient reports she completed lumbar spine MRI and xrays at [facility] within the past 2 years. These results are not available for review today. Lumbar spine MRI done in 2005 showed minimal disc bulging at L4-5. 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 Alert and oriented. Mood and affect appropriate. Follows and participates in conversation appropriately. Respiratory effort is unlabored. No cough. Able to transition from sit to stand with the use of walker. Ambulates with bilaterally normal heel strike and toe off. Back/Spine/Pelvis Cervical Spine: cervical ROM normal and No Cervical spine tenderness Thoracic/Lumbar Spine: thoracic and lumbar spine normal to inspection, Lasegue's sign negative, straight leg raise negative bilaterally, pain with thoraco-lumbar ROM, paraspinal muscle tenderness, thoraco-lumbar ROM limited, No thoracic spinal tenderness and lumbar spinal tenderness (L4-S1) Sacroiliac joints: bilaterally tender to palpation Extrem Other: No soft tissue swelling, redness or warmth. There is decreased sensation over the soles of the feet and toes, especially big toes and lateral foot bilaterally, right worse than left. Bilateral toenails with yellow discoloration and thick toenails. Normal capillary refill. No clubbing, cyanosis or edema. No calf tenderness. Pulses +2 throughout bilaterally. Office Procedures Topical Capsaicin Date(s) of prior application(s): 07/18/22, 11/11/22, 02/13/23, 05/16/23 Date 1:: 08/15/23 Date 2:: 11/07/23 Main area of pain on the body: Bilateral feet Laterality: Bilateral Location of left foot pain: Plantar, Proximal, Dorsal, Medial, Lateral and Distal Location of right foot pain: Plantar, Proximal, Dorsal, Medial, Lateral and Distal Quality of pain: Aching, Nagging, Burning, Gnawing, Numb-like, Tiring and Penetrating Details:: Two patches, 560 cm2 were utilized per each foot. EMLA Cream (lidocaine 2.5% and prilocaine 2.5%) was applied at home by patient prior to application of the patches. The patient tolerated the procedure well. Patient?s vitals signs remained stable throughout the procedure. Patient was able to complete the stipulated 35 minutes of the therapeutic application without any discomfort. Office Meds capsaicin-skin cleanser 8 % topical kit Performing Provider: DONALD Espinosa Performing Location: [facility] Administered by: DONALD Espinosa on 11/07/23 10:05 Dose Route Admin Location Dispensed Lot Number Expiration Date [facility] [employer] 4 ea topical [facility] 4 ea [id number] 10/15/25 52903-051-58 [employer] Results Reviewed Results Reviewed: MRI OF THE LUMBAR SPINE 06/06/2005 at [facility] HISTORY: 49 year old with low back pain radiating to the right lower extremity. FINDINGS: The lumbar spine is in anatomic alignment. Vertebral body heights are well maintained. The conus is unremarkable in morphology, signal and position. Bone marrow signal intensity appears normal. The intervertebral disc space heights and signal are relatively well maintained throughout the lumbar spine. A few small Schmorl?s nodes are seen along the inferior end plate of L1 and along the superior end plate of L3. At the L4-5 level, there is minimal broad based disc bulging with mild flattening of the anterior thecal sac without significant neural foraminal compromise. The remainder of the lumbar spine demonstrates no significant disc bulge or herniation and no significant spondylosis or facet arthrosis. There is no evidence of any significant central spinal stenosis or neural foraminal compromise. IMPRESSION: 1. Minimal disc bulging at L4-5. There is no evidence of significant spinal stenosis or nerve root impingement. Assessment & Plan Assessment & Plan (1) Chronic painful diabetic neuropathy: Code(s): E11.40 - Type 2 diabetes mellitus with diabetic neuropathy, unspecified Category: Medical (2) Lumbar degenerative disc disease: Code(s): M51.36 - Other intervertebral disc degeneration, lumbar region Category: Medical (3) Lumbar spondylosis: Code(s): M47.816 - Spondylosis without myelopathy or radiculopathy, lumbar region Category: Medical (4) Muscle spasm: Code(s): M62.838 - Other muscle spasm Category: Medical (5) Essential hypertension: Code(s): I10 - Essential (primary) hypertension Category: Medical Plan Patient is status post 6th application of topical capsaicin 8% for diabetic neuropathy in bilateral feet. Patient reports moderate improvement in her neuropathy symptoms since starting capsaicin applications and will continue to monitor her symptoms. Patient tolerated the procedure without significant discomfort. Patient was advised to follow up with her PCP regarding elevated BP readings and monitor BP at home as well as regularly taking her BP medications and take her medications with her during traveling. Scripts were sent to our [facility] today and patient was able to take her morning dose of BP medications with improvement in her BP. Patient was discharged home in stable condition with discharge instructions. Follow up for next Qutenza application and sooner as needed. Greater than 45 minutes were spent in therapeutic application and in coordination of the care. Orders: Orders AMB Capsaicin Patch - Practice Supplied Today E11.40 - Type 2 diabetes mellitus with diabetic neuropathy, unspecified Medications: Changed From lisinopril 20 mg PO BID To lisinopril 20 mg PO BID 30 days 60 tabs 0RF From amlodipine 2.5 mg PO DAILY To amlodipine 2.5 mg PO DAILY 30 days 30 tabs 0RF Coding Level of Care Code Est Pt Level 4 (76292) Diagnoses Chronic painful diabetic neuropathy E11.40 Lumbar degenerative disc disease M51.36 Lumbar spondylosis M47.816 Muscle spasm M62.838 Essential hypertension I10
[2023-11-07 09:28] VITALS: BP 197/85; PULSE 80; O2SAT 99; BMI 32.9
[2023-11-07 09:29] VITALS: BP 212/91; PULSE 79; O2SAT 98
[2023-11-07 09:46] VITALS: BP 180/82
[2023-11-07 09:58] VITALS: BP 168/74
[2023-11-07 10:50] VITALS: BP 140/68; PULSE 72; O2SAT 98
[2023-11-07 10:52] VITALS: BP 140/68; PULSE 68; O2SAT 98
== END 2023-11-07 10:55 | disposition home or self-care (01) ==
PROVIDERS: PCP Physician Assistant; Visit Provider Nurse Practitioner Family
DX: E11.40 Type 2 diabetes mellitus with diabetic neuropathy, unspecified (principal); M51.36 Other intervertebral disc degeneration, lumbar region; M47.816 Spondylosis without myelopathy or radiculopathy, lumbar region; M62.838 Other muscle spasm; I10 Essential (primary) hypertension
CPT/HCPCS: 17999; 99214

== ENCOUNTER → 2023-11-07 09:21 | Outpatient (BNVA) | payer OTHER, SELFPAY | PROVIDERS: PCP Physician Assistant; Visit Provider Nurse Practitioner Family | DX: E11.40 Type 2 diabetes mellitus with diabetic neuropathy, unspecified (principal); M51.36 Other intervertebral disc degeneration, lumbar region; M47.816 Spondylosis without myelopathy or radiculopathy, lumbar region; M62.838 Other muscle spasm; I10 Essential (primary) hypertension | CPT/HCPCS: 17999; 99212; J7336 ==

== ENCOUNTER 2024-02-06 09:24 | Outpatient (AMB) | payer OTHER, SELFPAY ==
[2024-02-06 09:27] VITALS: BP 173/71; PULSE 78; RESP 18; O2SAT 96; BMI 32.9
--- NOTE | 2024-02-06 09:27 | MHC.OFFVIS ---
Vital Signs 02/06/24 09:27 02/06/24 09:52 02/06/24 10:13 Height 5 ft 2 in Weight 180 lb BMI 32.9 BP 173/71 H 123/59 L 173/74 H Blood Pressure Location Lt brachial Lt brachial Lt brachial Position Sitting Sitting Sitting Respiration 18 Pulse 78 75 73 Pulse Source Pulse Oximeter Pulse Oximeter Pulse Oximeter Pulse Oximetry (%) 96 98 Oxygen Delivery Method Room Air Room Air Comment 15 mins after qutenza application 30 Mins after qutenza application Intake Visit Reasons: QUTENZA Intake Note: Back pain 8/10. Bilateral foot pain 2/10 describes as burning, numbness, tingling worse at night. Injection Maintenance Technician Required: Yes Injection Maintenance Technician Language: Burkinan Injection Maintenance Technician Services: Injection Maintenance Technician Offered & Declined Injection Maintenance Technician Name: Provider's speaks Burkinan Accompanied by: Daughter Allergies Penicillins Allergy (Unknown, Verified 02/06/24 09:36) Rash HPI Comments Details: Patient presents for 7th application of capsaicin 8% topical patch for diabetic neuropathy in bilateral feet. Patient is accompanied by her daughter Jeanette. This provider speaks fluently in patient's [place] language. Patient reports improving foot pain, especially nighttime cramping in her toes and better sleep but continues with significant low back pain. Reports 8/10 in her low back pain, worse with walking or prolonged standing. Patient reports blood sugars and A1C remains elevated, above 9.0. She takes Ozempic 1 mg SQ weekly and Insulin daily. Patient reports GI slow motility and constipation and frequently has to use fleets enema. Reports increased back pain in the morning accompanied with stiffness and aching. She is unable to participate in PT at this time due to significant pain but continues home stretching exercises. She takes Ibuprofen prn, Tylenol and OTC topical applications with minimal relief. Denies any recent cough, cold, infection, fever or other significant changes in medical history since last office visit. PRIOR: Patient presents today for follow up for worsening chronic lower back pain. She is accompanied by her daughter. Patient ambulates slowly with use of walker. She continues to experience spinal stenosis-related pain in right L5-S1 distribution. She is sitting with bending forward position to relieve her radicular pain. She has numbness and tingling in her bilateral lower legs and feet due to diabetic neuropathy but also increased heaviness and numbness in her RLE with walking or standing. Qutenza (capsaicin 8%) patch has been approved and we will schedule her in office application. EMLA cream script was sent to her pharmacy. Patient reports she recently completed oral prednisone taper through her PCP office. Patient's daughter reports most recent A1C was elevated, over 9.0. Patient is poor candidate for steroid therapy. She has completed lumbar spine MRI on 06/12/22 ordered by her PCP. These results are not available today. We reviewed records from [facility] and lumbar spine MRI with significant changes at L5-S1 level as noted below. Patient reports she was seeing chiropractor for chronic lower back pain in 2019 and after therapy, she developed severe left sided pain with sciatica and could not walk. The MRI in 2019 was completed after chiropractic session. Patient reports she was referred to neurosurgery but contracted COVID illness and was hospitalized for 21 days at [facility], including intubation. Patient reports she has completed PT since then and has been referred back to PT. PRIOR: Patient is a pleasant 66 years old Burkinan speaking female who presents with chronic peripheral neuropathy in both of her feet and hands, bilateral shoulder pain and chronic back pain. She attributes her pain symptoms to degenerated discs in her spine, diabetes and arthritis. Denies any recent trauma, injury or falls. Patient reports she has been diabetic for over 25 years and her most recent A1C has been around 9. She reports hot burning, numbness and tingling with decreased sensation in her feet, mostly no sensation in her toes that happen to cramp and lock in frequently. Patient reports she used to follow Dr. Rizvi for back pain in the past for history of lumbar disc protrusions and herniations, spinal stenosis with consideration of back surgery but has declined it in 2019. Patient also states she had an unpleasant experience with an attempt for lumbar ALVERTO and had to abort her procedure due to significant pain. Patient reports progressive back and leg pain, worse with walking. She states the back pain radiates across her low back and radiates down the anterior legs to shins on the right side. Her symptoms worsen with walking or standing for 5 or less minutes. Patient reports increased pain in her shoulders with overhead arm use. Pain is described as constant dull, sore, hurting, aching, heavy, punishing, killing, tugging, pulling, wrenching, tiring, exhausting, hot burning, scalding, searing, tingling and stinging. Patient is using a walker with ambulation and reports that while walking she has to stop and take breaks frequently. She also reports using a commode at night. Patient notes partial pain relief with leaning forward. She rates her pain 7-8/10 on average doing small things around the house and 9-10/10 when walking. Patient denies any fever, abdominal or groin pain, weight changes, bowel/bladder incontinence or saddle anesthesia. Patient reports she completed many sessions of PT and HEP which was helpful for short term pain relief. She also uses the TENS unit. Patient has been taking Ibuprofen, diclofenac gel and lidocaine patches with minimal pain relief. She wears customized shoes and reports undergoing a diabetic foot exam annually. Patient reports she completed lumbar spine MRI and xrays at [facility] within the past 2 years. These results are not available for review today. Lumbar spine MRI done in 2005 showed minimal disc bulging at L4-5. [facility] Medical History Chronic midline low back pain with right-sided sciatica Onychomycosis Essential hypertension Lumbar radiculopathy, chronic Chronic painful diabetic neuropathy Review of Systems Const All systems reviewed & are unremarkable except as noted in HPI and below Physical Exam Vital Signs: Last Vital Signs Pulse 73 02/06/24 10:13 Resp 18 02/06/24 09:27 BP 173/74 H 02/06/24 10:13 Pulse Ox 98 02/06/24 09:52 Oxygen Delivery Method Room Air 02/06/24 09:52 BMI result Body Mass Index 32.9 General: Appears afebrile. Alert and oriented. Mood and affect appropriate. Follows and participates in conversation appropriately. Respiratory effort is unlabored. No cough. Able to transition from sit to stand with the use of walker. Ambulates with bilaterally normal heel strike and toe off. GI Inspection: Yes obesity Palpation (GI): Soft to palpation, nontender and no guarding General: Yes no CVA tenderness Back/Spine/Pelvis Back: no CVA tenderness Cervical Spine: cervical ROM normal and No Cervical spine tenderness Thoracic/Lumbar Spine: thoracic and lumbar spine normal to inspection, Lasegue's sign negative, straight leg raise negative bilaterally, pain with thoraco-lumbar ROM, paraspinal muscle tenderness, thoraco-lumbar ROM limited, No thoracic spinal tenderness and lumbar spinal tenderness (L4-S1) Sacroiliac joints: bilaterally tender to palpation Extrem Other: There is decreased sensation over the soles of the feet and toes, especially big toes and lateral foot bilaterally, right worse than left. No soft tissue swelling, redness or warmth. Normal capillary refill. No clubbing, cyanosis or edema. No calf tenderness. Pulses +2 throughout bilaterally. Office Procedures Topical Capsaicin Date(s) of prior application(s): See EMR for prior application dates Main area of pain on the body: Bilateral feet and toes Laterality: Bilateral Location of left foot pain: Anterior, Posterior, Plantar, Proximal, Dorsal, Medial, Lateral and Distal Location of right foot pain: Anterior, Posterior, Plantar, Proximal, Dorsal, Medial, Lateral and Distal Quality of pain: Aching, Nagging, Burning, Numb-like and Tiring Details:: Two patches, 560 cm2 were utilized per each foot. EMLA Cream (lidocaine 2.5% and prilocaine 2.5%) was applied at home by patient prior to application of the patches. The patient tolerated the procedure well. Patient?s vitals signs remained stable throughout the procedure. Patient was able to complete the stipulated 30 minutes of the therapeutic application without any discomfort. Office Meds capsaicin-skin cleanser 8 % topical kit Performing Provider: DONALD Espinosa Performing Location: [facility] Administered by: DONALD Espinosa on 02/06/24 09:35 Dose Route Admin Location Dispensed Lot Number Expiration Date ND [employer] 4 ea topical [facility] 4 ea [id number] 10/15/25 [id number] [employer] Results Reviewed Results Reviewed: MRI OF THE LUMBAR SPINE 06/06/2005 at [facility] HISTORY: 49 year old with low back pain radiating to the right lower extremity. FINDINGS: The lumbar spine is in anatomic alignment. Vertebral body heights are well maintained. The conus is unremarkable in morphology, signal and position. Bone marrow signal intensity appears normal. The intervertebral disc space heights and signal are relatively well maintained throughout the lumbar spine. A few small Schmorl?s nodes are seen along the inferior end plate of L1 and along the superior end plate of L3. At the L4-5 level, there is minimal broad based disc bulging with mild flattening of the anterior thecal sac without significant neural foraminal compromise. The remainder of the lumbar spine demonstrates no significant disc bulge or herniation and no significant spondylosis or facet arthrosis. There is no evidence of any significant central spinal stenosis or neural foraminal compromise. IMPRESSION: 1. Minimal disc bulging at L4-5. There is no evidence of significant spinal stenosis or nerve root impingement. Assessment & Plan Assessment & Plan (1) Chronic painful diabetic neuropathy: Code(s): E11.40 - Type 2 diabetes mellitus with diabetic neuropathy, unspecified Category: Medical (2) Lumbar degenerative disc disease: Code(s): M51.36 - Other intervertebral disc degeneration, lumbar region Category: Medical (3) Lumbar spondylosis: Code(s): M47.816 - Spondylosis without myelopathy or radiculopathy, lumbar region Category: Medical Plan Patient is status post 7th application of topical capsaicin 8% for diabetic neuropathy in bilateral feet. Patient reports significant improvement in her neuropathy symptoms since starting capsaicin applications and will continue to monitor her symptoms. Patient tolerated the procedure without significant discomfort. We also reviewed interventional treatments for radicular low back pain. Unfortunately, patient's A1C remains too elevated (above 9 per patient) to consider therapeutic injections. We also discussed low dose and short script opioid for moderate-severe pain, patient reports significant constipation and slow GI motility with frequent use of home enemas and moderately hard BMs. She is encouraged to follow up with her PCP for this. Patient was discharged home in stable condition with discharge instructions. Follow up for next Qutenza application and sooner as needed. Greater than 35 minutes were spent in therapeutic application and in coordination of the care. Orders: Orders AMB Capsaicin Patch - Practice Supplied Today E11.40 - Type 2 diabetes mellitus with diabetic neuropathy, unspecified Medications: New capsaicin-skin cleanser 8 % 4 ea topical ONCE 1 ea 0RF E11.40 - Type 2 diabetes mellitus with diabetic neuropathy, unspecified Coding Level of Care Code Est Pt Level 4 (16074) Complex EM visit Add On G2211 Diagnoses Chronic painful diabetic neuropathy E11.40 Lumbar degenerative disc disease M51.36 Lumbar spondylosis M47.816
[2024-02-06 09:52] VITALS: BP 123/59; PULSE 75; O2SAT 98
[2024-02-06 10:13] VITALS: BP 173/74; PULSE 73
== END 2024-02-06 10:17 | disposition home or self-care (01) ==
PROVIDERS: PCP Physician Assistant; Visit Provider Nurse Practitioner Family
DX: E11.40 Type 2 diabetes mellitus with diabetic neuropathy, unspecified (principal); M51.369 Other intervertebral disc degeneration, lumbar region without mention of lumbar back pain or lower extremity pain; M47.816 Spondylosis without myelopathy or radiculopathy, lumbar region
CPT/HCPCS: 17999; 99214

== ENCOUNTER → 2024-02-06 09:24 | Outpatient (BNVA) | payer OTHER, SELFPAY | PROVIDERS: PCP Physician Assistant; Visit Provider Nurse Practitioner Family | DX: E11.40 Type 2 diabetes mellitus with diabetic neuropathy, unspecified (principal); M51.369 Other intervertebral disc degeneration, lumbar region without mention of lumbar back pain or lower extremity pain; M47.816 Spondylosis without myelopathy or radiculopathy, lumbar region | CPT/HCPCS: 17999; 99212; J7336 ==

== ENCOUNTER 2024-05-07 09:30 | Outpatient (AMB) | payer OTHER, SELFPAY ==
--- NOTE | 2024-05-07 09:33 | A.OFFVIS_ITS ---
Vital Signs 3 05/07/24 09:37 05/07/24 09:41 05/07/24 10:15 05/07/24 10:32 Height 5 ft 2 in Weight 190 lb BMI 34.7 BP 188/82 H 180/68 H 154/72 H 168/72 H Blood Pressure Location Rt brachial Lt brachial Lt brachial Lt brachial Position Sitting Sitting Sitting Sitting Pulse 83 77 70 Pulse Source Pulse Oximeter Pulse Oximeter Pulse Oximeter Comment bp done maually 15 mins after qutenza application 30 mins after qutenza application Intake Visit Reasons: Qutenza Intake Note: Pain today 8/10 Sales Agent Food Vending Service Required: Yes Sales Agent Food Vending Service Language: Kenyan Sales Agent Food Vending Service Services: Sales Agent Food Vending Service Offered & Declined Sales Agent Food Vending Service Name: Provider is fluent in Kenyan Information Interpreted: non-clinical & clinical Accompanied by: Daughter Allergies Penicillins Allergy (Unknown, Verified 05/07/24 09:42) Rash HPI Comments Details: Patient presents for application of capsaicin 8% topical patch for diabetic neuropathy in bilateral feet. Patient is accompanied by her daughter Jeanette. This provider speaks fluently in patient's [place] language. Patient continues to endorse bilateral upper and lower extremities neuropathic pain, especially nighttime cramping in her toes and better sleep but continues with significant low back and neck pain. Reports 8/10 in her low back pain, worse with walking or prolonged standing and worsening neck pain with difficulty turning her neck to the right and bending. She reports worsening headaches with neck pain and muscle spasms, unrelieved with Tylenol, NSAIDs, gabapentin and cyclobenzaprine. Patient reports increased neck and back pain with activities or home exercises. She is unable to participate in PT at this time due to significant pain. Patient reports visual disturbances and mild hearing loss with increased neck pain or cervical flexion which results in headache, dizziness and imbalance. She has pending follow up next month with her PCP and will update her A1C level. Her home blood sugars fluctuate between 70-140's. Denies any recent cough, cold, infection, fever or other significant changes in medical history since last office visit. PRIOR: Patient presents today for follow up for worsening chronic lower back pain. She is accompanied by her daughter. Patient ambulates slowly with use of walker. She continues to experience spinal stenosis-related pain in right L5-S1 distribution. She is sitting with bending forward position to relieve her radicular pain. She has numbness and tingling in her bilateral lower legs and feet due to diabetic neuropathy but also increased heaviness and numbness in her RLE with walking or standing. Qutenza (capsaicin 8%) patch has been approved and we will schedule her in office application. EMLA cream script was sent to her pharmacy. Patient reports she recently completed oral prednisone taper through her PCP office. Patient's daughter reports most recent A1C was elevated, over 9.0. Patient is poor candidate for steroid therapy. She has completed lumbar spine MRI on 06/12/22 ordered by her PCP. These results are not available today. We reviewed records from [facility] and lumbar spine MRI with significant changes at L5-S1 level as noted below. Patient reports she was seeing chiropractor for chronic lower back pain in 2019 and after therapy, she developed severe left sided pain with sciatica and could not walk. The MRI in 2019 was completed after chiropractic session. Patient reports she was referred to neurosurgery but contracted COVID illness and was hospitalized for 21 days at [facility], including intubation. Patient reports she has completed PT since then and has been referred back to PT. PRIOR: Patient is a pleasant 66 years old Kenyan speaking female who presents with chronic peripheral neuropathy in both of her feet and hands, bilateral shoulder pain and chronic back pain. She attributes her pain symptoms to degenerated discs in her spine, diabetes and arthritis. Denies any recent trauma, injury or falls. Patient reports she has been diabetic for over 25 years and her most recent A1C has been around 9. She reports hot burning, numbness and tingling with decreased sensation in her feet, mostly no sensation in her toes that happen to cramp and lock in frequently. Patient reports she used to follow Dr. Rizvi for back pain in the past for history of lumbar disc protrusions and herniations, spinal stenosis with consideration of back surgery but has declined it in 2019. Patient also states she had an unpleasant experience with an attempt for lumbar ALVERTO and had to abort her procedure due to significant pain. Patient reports progressive back and leg pain, worse with walking. She states the back pain radiates across her low back and radiates down the anterior legs to shins on the right side. Her symptoms worsen with walking or standing for 5 or less minutes. Patient reports increased pain in her shoulders with overhead arm use. Pain is described as constant dull, sore, hurting, aching, heavy, punishing, killing, tugging, pulling, wrenching, tiring, exhausting, hot burning, scalding, searing, tingling and stinging. Patient is using a walker with ambulation and reports that while walking she has to stop and take breaks frequently. She also reports using a commode at night. Patient notes partial pain relief with leaning forward. She rates her pain 7-8/10 on average doing small things around the house and 9-10/10 when walking. Patient denies any fever, abdominal or groin pain, weight changes, bowel/bladder incontinence or saddle anesthesia. Patient reports she completed many sessions of PT and HEP which was helpful for short term pain relief. She also uses the TENS unit. Patient has been taking Ibuprofen, diclofenac gel and lidocaine patches with minimal pain relief. She wears customized shoes and reports undergoing a diabetic foot exam annually. Patient reports she completed lumbar spine MRI and xrays at [facility] within the past 2 years. These results are not available for review today. Lumbar spine MRI done in 2005 showed minimal disc bulging at L4-5. [facility] Medical History Chronic midline low back pain with right-sided sciatica Onychomycosis Essential hypertension Lumbar radiculopathy, chronic Chronic painful diabetic neuropathy Review of Systems Const All systems reviewed & are unremarkable except as noted in HPI and below Physical Exam Vital Signs: Last Vital Signs Pulse 77 05/07/24 10:15 BP 154/72 H 05/07/24 10:15 BMI result Body Mass Index 34.7 General: Appears afebrile. Alert and oriented. Mood and affect appropriate. Follows and participates in conversation appropriately. Respiratory effort is unlabored. No cough. Able to transition from sit to stand with the use of walker. Ambulates with bilaterally normal heel strike and toe off. HEENT Head: Yes normal to inspection, Yes No palpable skull fracture present, Yes normocephalic, Yes atraumatic, No occipital foramen tenderness, No scalp tenderness and No Temporal artery tenderness present Eyes General: appearance normal, both eyes and all related structures Neck Other: Patient with decreased cervical ROM in all planes/especially with right lateral rotation. Reports increased pain with cervical flexion. Spurling compression test equivocal. Pain is unchanged by Spurling maneuver with retraction. Elvey's tension test positive bilaterally, with radiation of pain from neck to wrist and hands. Lhermitte's test was negative. DTR intact but diminished bilaterally. Decreased hand grasps, with left 4/5 and right 3/5 motor strength of bilateral upper extremities. Reports neuropathy in bilateral upper and lower extremities. 2 + radial pulses. Significant tightness throughout right upper trapezius as well as TTP throughout bilateral upper trapezius muscles. Reports headache and increased neck pain with flexion and ROM. Mild paravertebral tenderness over facet joints bilaterally. Neck: Yes normal visual inspection, Yes no lymphadenopathy, Yes no meningeal signs, Yes supple, No anterior neck swelling, Yes no JVD, No prominent supraclavicular fat pad and Yes prominent dorsocervical fat pad Cardio Jugular venous distension: no JVD Palpation: normal PMI Rate: regular rate Rhythm: regular rhythm Peripheral pulses: Peripheral pulses 2+ throughout GI Inspection: Yes obesity Palpation (GI): Soft to palpation, nontender and no guarding General: Yes no CVA tenderness Back/Spine/Pelvis Back: no CVA tenderness Cervical Spine: cervical ROM normal and No Cervical spine tenderness Thoracic/Lumbar Spine: thoracic and lumbar spine normal to inspection, Lasegue's sign negative, straight leg raise negative bilaterally, pain with thoraco-lumbar ROM, paraspinal muscle tenderness, thoraco-lumbar ROM limited, No thoracic spinal tenderness and lumbar spinal tenderness (L4-S1) Sacroiliac joints: bilaterally tender to palpation Neuro General: no meningeal signs Extrem Other: There is decreased sensation over the soles of the feet and toes, especially big toes and lateral foot bilaterally, right worse than left. No soft tissue swelling, redness or warmth. Normal capillary refill. No clubbing, cyanosis or edema. No calf tenderness. Pulses +2 throughout bilaterally. Office Procedures Topical Capsaicin Date(s) of prior application(s): See EMR for prior applications Main area of pain on the body: Bilateral foot and toes Laterality: Bilateral Location of left foot pain: Anterior, Posterior, Plantar, Dorsal, Medial, Lateral and Distal Location of right foot pain: Anterior, Posterior, Plantar, Dorsal, Medial, Lateral and Distal Quality of pain: Aching, Nagging, Burning, Numb-like, Tiring and Penetrating Details:: Two patches, 560 cm2 were utilized per each foot. EMLA Cream (lidocaine 2.5% and prilocaine 2.5%) was applied at home by patient prior to application of the patches. The patient tolerated the procedure well. Patient?s vitals signs remained stable throughout the procedure. Patient was able to complete the stipulated 35 minutes of the therapeutic application without any discomfort. Office Meds capsaicin-skin cleanser 8 % topical kit Performing Provider: DONALD Espinosa Performing Location: [facility] Administered by: DONALD Espinosa on 05/07/24 09:50 2 Dose Route Admin Location Dispensed Lot Number Expiration Date NDC Manager [employer] 4 ea topical C [facility] 4 ea [id number] 11/15/25 20266-884-15 yaM Labs Results Reviewed Results Reviewed: MRI OF THE LUMBAR SPINE 06/06/2005 at [facility] HISTORY: 49 year old with low back pain radiating to the right lower extremity. FINDINGS: The lumbar spine is in anatomic alignment. Vertebral body heights are well maintained. The conus is unremarkable in morphology, signal and position. Bone marrow signal intensity appears normal. The intervertebral disc space heights and signal are relatively well maintained throughout the lumbar spine. A few small Schmorl?s nodes are seen along the inferior end plate of L1 and along the superior end plate of L3. At the L4-5 level, there is minimal broad based disc bulging with mild flattening of the anterior thecal sac without significant neural foraminal compromise. The remainder of the lumbar spine demonstrates no significant disc bulge or herniation and no significant spondylosis or facet arthrosis. There is no evidence of any significant central spinal stenosis or neural foraminal compromise. IMPRESSION: 1. Minimal disc bulging at L4-5. There is no evidence of significant spinal stenosis or nerve root impingement. Assessment & Plan Assessment & Plan (1) Chronic painful diabetic neuropathy: Code(s): E11.40 - Type 2 diabetes mellitus with diabetic neuropathy, unspecified Category: Medical (2) Spinal stenosis of lumbar region with neurogenic claudication: Code(s): M48.062 - Spinal stenosis, lumbar region with neurogenic claudication Category: Medical (3) Cervical radiculopathy: Code(s): M54.12 - Radiculopathy, cervical region Category: Medical (4) Degenerative disc disease, cervical: Code(s): M50.30 - Other cervical disc degeneration, unspecified cervical region Category: Medical (5) Lumbar degenerative disc disease: Code(s): M51.36 - Other intervertebral disc degeneration, lumbar region Category: Medical (6) Lumbar spondylosis: Code(s): M47.816 - Spondylosis without myelopathy or radiculopathy, lumbar region Category: Medical (7) Headache: Code(s): R51.9 - Headache, unspecified Category: Medical Plan Patient is status post application of topical capsaicin 8% for diabetic neuropathy in bilateral feet. She continues to reports this has been partially helpful for chronic diabetic neuropathy in her feet. Patient tolerated the procedure without significant discomfort. For cervical radiculopathy and worsening headache, we will proceed with MRI of the cervical spine and brain/head to assess for neural integrity and compression and vascular changes. We also reviewed interventional treatments for radicular low back and neck pain. Unfortunately, patient's A1C remains too elevated (above 9 per patient) to consider therapeutic injections. She has pending follow up with PCP next month and will update us with next reading. We also discussed low dose and short script opioid for moderate-severe pain. Script sent for tramadol. Side effects and precautions were discussed with patient and family. Narcan sent today as well. Patient was discharged home in stable condition with discharge instructions. Follow up for MRI results and sooner as needed. I hereby testify that I spent 55 minutes in conversation with this patient as well as with planning and coordinating care for this patient and organizing this note. Orders: Orders 2 AMB Capsaicin Patch - Practice Supplied Today E11.40 - Type 2 diabetes mellitus with diabetic neuropathy, unspecified MR head/brain wo con Today M54.12 - Radiculopathy, cervical region, R51.9 - Headache, unspecified MR cervical spine wo con Today M50.30 - Other cervical disc degeneration, unspecified cervical region, M54.12 - Radiculopathy, cervical region Medications: New 2 tramadol 50 mg PO BID 15 days PRN 30 tabs 0RF pain (scale score 7-10) E11.40 - Type 2 diabetes mellitus with diabetic neuropathy, unspecified, M48.062 - Spinal stenosis, lumbar region with neurogenic claudication, M54.12 - Radiculopathy, cervical region naloxone 4 mg/actuation (Narcan) spray 1 dose into ONE nostril; alternate nostrils w each dose until help arrives 4 mg intranasal Q2M PRN 2 ea 0RF opioid overdose E11.40 - Type 2 diabetes mellitus with diabetic neuropathy, unspecified, M48.062 - Spinal stenosis, lumbar region with neurogenic claudication Coding Level of Care Code Est Pt Level 5 (03997) Complex EM visit Add On G2211 Diagnoses Chronic painful diabetic neuropathy E11.40 Spinal stenosis of lumbar region with neurogenic claudication M48.062 Cervical radiculopathy M54.12 Degenerative disc disease, cervical M50.30 Lumbar degenerative disc disease M51.36 Lumbar spondylosis M47.816 Headache R51.9
[2024-05-07 09:37] VITALS: BP 188/82; PULSE 83; BMI 34.7
[2024-05-07 09:41] VITALS: BP 180/68
[2024-05-07 10:15] VITALS: BP 154/72; PULSE 77
--- OUTSIDE RECORDS SUMMARY | 2024-05-07 10:27 | XMS_ITS | Encounter Summary ---
Author Organization [employer] [facility] Address [address] [place] [address] 7 [place] [address] Care Team Providers Care Income Tax Administrator Name Role Phone Unavailable Primary Care Provider Unavailabl e Encounter Details Date Type Department Care Team (Latest Contact Info) Description 06/17/2020 Abstract [facility] Dental, Provider, DDS Social History Tobacco Use Types Packs/Day Years Used Date Smoking Tobacco: Never Assessed Comments Unknown Sex and Gender Information Value Date Recorded Sex Assigned at Female 02/14/2022 10:23 AM EDT Legal Sex Female 10:23 AM EDT Gender Identity Female 02/14/2022 10:23 AM EDT Sexual Orientation Straight 02/14/2022 10 :23 AM EDT documented as of this encounter Plan of Treatment Upcoming Encounters Date Type Department Care Team (Late st Contact Info) Description 05/29/2024 9:00 AM EST Office Visit [facility] [address] [place], [place] [phone] Janice Mulligan BDS [address] [place], [place] [phone] documented as of this encounter Visit Diagnoses Not on filedocumented in this encounter
--- OUTSIDE RECORDS SUMMARY | 2024-05-07 10:27 | XMS_ITS | Clinical Summary ---
Author Organization [employer] [facility] Address [address] [facility] [address] [place] [address] Care Team Providers Care Executive Office Manager Name Role Phone Unavailable Primary Care Provider Unavailabl e Allergies Active Allergy Reactions Criticality Noted Date Comments Dulaglutide Itching 11/07/2014 Egg White (Egg Protein) High 08/20/2021 Rash Penicillins 11/06/2012 Medications Alcohol Swabs 70 % pads Use qd, dx E11.9 3 Active amLODIPine (Norvasc) 2.5 MG tablet Take 1 tablet by mouth in the morning. 3 Active metFORMIN, OSM, (Fortamet) 1000 MG 24 hr tablet Take 1,000 mg by mouth with evening meal. Do not crush, chew, or split. Active insulin glargine (Lantus) 100 UNIT/ML injection Inject under the skin at bedtime. Active Semaglutide (OZEMPIC, 1 MG/DOSE, SC) Inject under the skin. Active fluticasone (Flovent) 110 MCG/ACT inhaler Inhale 1 puff in the morning and at bedtime. Rinse mouth with water after use to reduce aftertaste and incidence of candidiasis. Do not swallow. Active lisinopril 20 MG tablet Take by mouth in the morning. Active Encounters Date Type Department Care Team Description 03/26/2024 1:00 PM EST Office Visit [facility] [address] [place] [phone] Janice Mulligan BDS 02/15/2024 10:00 AM EDT Office Visit [facility] [address] [place] [address] [phone] Janice Mulligan BDS from Last 3 Months Social History Tobacco Use Types Packs/Day Years Used Date Smoking Tobacco: Never Smokeless Tobacco: Never Tobacco Cessation:Counseling Given: Not Answered Comments Unknown Sex and Gender Information Value Date Recorded Sex Assigned at Female 02/14/2022 10:23 AM EDT Legal Sex Female 10:23 AM EDT Gender Identity Female 02/14/2022 10:23 AM EDT Sexual Orientation Straight 02/14/2022 10 :23 AM EDT Last Filed Vital Signs Vital Sign Reading Time Taken Comments Blood Pressure 122/68 03/26/2024 3:16 PM EST Pulse - - Temperature - - Respiratory Rate - - Oxygen Saturation - - Inhaled Oxygen Concentration - - Weight - - Height - - Body Mass Index - - Plan of Treatment Upcoming Encounters Date Type Department Care Team (Late st Contact Info) Description 05/29/2024 9:00 AM EST Office Visit [facility] [address] [place] [address] [phone] Janice Mulligan, BDS [address] [place] [address] [phone] Health Maintenance Due Date Last Done Comments CT Colonography 1954 Colonoscopy 1954 Colorectal Cancer Screening 1954 Depression Screening 1954 FIT DNA/Cologuard 1954 FIT 1954 FOBT 1954 Lipid Panel 1954 SDOH Screening 1954 Sigmoidoscopy 1954 Pneumococcal Vaccine: 65+ Years (1 of 2 - PCV) 1960 Alcohol/Substance Use Screening 1966 Hepatitis C Screening 1972 DTaP/Tdap/Td Vaccines (1 - Tdap) 1973 Mammogram 1994 Zoster Vaccines (1 of 2) 2004 RSV Patients and Patients Aged 60 years or older (1 - Risk 60-74 years 1-dose series) 2014 Dental Oral Exam 06/27/2022 12/27/2021, 06/2020, 04/30/2019, Additional history exists Dental Prophylaxis 06/27/2022 12/27/2021, 0 06/17/2020, 04/30/2019, Additional history exists Dental X-Ray: Bitewings 12/28/2022 12/28/19 22, 05/27/2020, 01/10/2020, Additional history exists COVID-19 Vaccine ( season) 2023 Influenza Vaccine (#1) 2023 Tobacco Screening 03/26/2025 03/26/2024 Dental X-Ray: Full Mouth 03/16/2026 023, 10/27/2020, 09/20/2016 HIB Vaccines Aged Out No longer eligi ble based on patient's age to complete this topic HPV Vaccines Aged Out No longer eligi ble based on patient's age to complete this topic Hepatitis A Vaccines Aged Out No long er eligible based on patient's age to complete this topic Hepatitis B Vaccines Aged Out No long er eligible based on patient's age to complete this topic IPV Vaccines Aged Out No longer eligi ble based on patient's age to complete this topic Meningococcal Vaccine Aged Out No [place] eligible based on patient's age to complete this topic RSV under 20 months Aged Out No longe r eligible based on patient's age to complete this topic Rotavirus Vaccines Aged Out No longer eligible based on patient's age to complete this topic Procedures Procedure Name Priority Date/Time Associated Diagnosis Comments 31 ADRIANO RESTORATIVE - RESIN-BASED COMPOSITE RESTORATIONS - DIRECT - RESIN-BASED COMPOSITE - THREE SURFACES, POSTERIOR Routine 03/26/2024 1:00 PM EST 3 CROWN - PORCELAIN/CERAMIC Routine 02/15/2024 10:00 AM EDT PANORAMIC RADIOGRAPHIC IMAGE Routine 03/15/2023 8:00 AM EST PROPHYLAXIS - ADULT Routine 12/27/2021 1 2:00 AM EDT BITEWINGS - 4 RADIOGRAPHIC IMAGES Routine 12/27/2021 12:00 AM EDT PERIODIC ORAL EVALUATION - ESTABLISHED PATIENT Routine 12/27/2021 12:00 AM EDT from Last 3 Months or Most Recently Relevant to Health Maintenance Insurance [facility]
--- OUTSIDE RECORDS SUMMARY | 2024-05-07 10:27 | XMS_ITS | Encounter Summary ---
Author Organization [employer] [facility] Address [address] [facility] 7t [place] [address] Care Team Providers Care Manager Shift Name Role Phone Unavailable Primary Care Provider Unavailabl e Reason for Visit * Reason Onset Date Comments appt 05/23/2023 Encounter Details Date Type Department Care Team (Late Contact Info) Description 05/23/2023 Telephone [facility] [address] [place] [address] [phone] Janice Mulligan, BDS [address] [place], [place] [phone] appt Social History Tobacco Use Types Packs/Day Years Used Date Smoking Tobacco: Never Assessed Comments Unknown Sex and Gender Information Value Date Recorded Sex Assigned at Female 02/14/2022 10:23 AM EDT Legal Sex Female 10:23 AM EDT Gender Identity Female 02/14/2022 10:23 AM EDT Sexual Orientation Straight 02/14/2022 10 :23 AM EDT documented as of this encounter Miscellaneous Notes * Telephone Encounter - Gretchen Mckeon - 05/23/2023 12:46 PM EST Patient called in to schedule crown appt. I am not sure how to schedule crowns in [place] but it is requested to be with Dr. Hodge. Pls contact patient DR documented in this encounter Plan of Treatment Upcoming Encounters Date Type Department Care Team (Late Contact Info) Description 05/29/2024 9:00 AM EST Office Visit [facility] [address] [place], [place] [phone] Janice Mulligan, BDS [address] [place] [phone] documented as of this encounter Visit Diagnoses Not on filedocumented in this encounter
--- OUTSIDE RECORDS SUMMARY | 2024-05-07 10:27 | XMS_ITS | Encounter Summary ---
Author Organization [facility] Address [address] [place] [address] Care Team Providers Care Senior Restaurant Manager Name Role Phone Alissa Parker Primary Care Provider [phone] Reason for Visit * Reason Comments Foot Pain Poorly controlled ty pe 2 diabetes mellitus with neuropathy (CMS/HCC)Pain in toes of both feetIngrowing right great toenailArthritis of both feetDifficulty walkingDermatophytosis, nail Encounter Details Date Type Department Care Team (Late st Contact Info) Description 04/23/2024 10:30 AM EST Office Visit Orthopedic Surgery - [facility] [address] [phone] Edgar Kathleen, CORY [address] [phone] Poorly controlled type 2 diabetes mellitus with neuropathy (CMS/HCC) (Primary Dx); Pain in toes of both feet; Ingrowing right great toenail; Difficulty walking; Dermatophytosis, nail Social History Tobacco Use Types Packs/Day Years Used Date Smoking Tobacco: Never Smokeless Tobacco: Never Tobacco Cessation:Counseling Given: Not Answered Sex and Gender Information Value Date Recorded Sex Assigned at Not on file Gender Identity Not on file Sexual Orientation Not on file Job Start Date Occupation Industry Not on file Not on file Not on file documented as of this encounter Last Filed Vital Signs Vital Sign Reading Time Taken Comments Blood Pressure - - Pulse - - Temperature - - Respiratory Rate - - Oxygen Saturation - - Inhaled Oxygen Concentration - - Weight 83.9 kg (185 lb) 04/23/2024 10:44 AM EST Height 154.9 cm (5' 0.98 ) 04/23/2024 10:44 AM Champ HINTON Body Mass Index 34.97 04/23/2024 10:44 AM EST documented in this encounter Progress Notes * Edgar Kathleen DPM - 04/23/2024 10:30 AM EST Referring MD: azalia Last PCP visit: 01/15/2024 IDENTIFIER: @TITLE@ Al is a 68 y.o. year old female who presents for consultation. CC: Bilateral foot pain HPI: 68-year-old diabetic female returns office for chief complaint of bilateral foot pain. Patient notes that she continues to have tingling numbness of the feet bilaterally. Patient is concerned that she has feeling of ingrowing toenail to the medial border of the right great toe. Patient notes that her nails continue be thickened and causing rubbing on adjacent digits. Patient's FBS this AM was 175 Recent A1C is %. 9.4 ROS: GENERAL: Pt denies nausea, fever, vomiting, chills, or shortness of breath. Pt in NAD. CARDIOLOGY: pt denies chest pain, palpitations LUNGS: pt denies shortness of breath MUSCULOSKELETAL: See HPI, otherwise no joint pain or swelling, back pain, or muscle pain. SKIN: see HPI, otherwise no lesions, rash or itching NEURO: No persistent headache, weakness or numbness The remainder of the review of systems is noncontributory PAST MEDICAL HISTORY: Patient Active Problem List Diagnosis Lumbar spondylosis SOCIAL HISTORY: Social History Tobacco Use Smoking status: Never Smokeless tobacco: Never Substance Use Topics Alcohol use: Not on file ACTIVE MEDICATIONS: Outpatient Medications Marked as Taking for the 04/23/24 encounter (Office Visit) with Edgar Kathleen DPM Medication Sig Dispense Refill amLODIPine (NORVASC) 2.5 mg tablet TAKE 1 TABLET BY MOUTH EVERY DAY IN THE MORNING ammonium lactate (LAC-HYDRIN) 12 % lotion Apply to soles of feet daily. At night wear socks to bed aspirin 81 mg EC tablet Take 1 Tablet by mouth daily. atorvastatin (LIPITOR) 20 mg tablet Take 20 mg by mouth daily. blood sugar diagnostic (FreeStyle Lite Strips) test strip cholecalciferol (Dialyvite Vitamin D3 Max) 1,250 mcg (50,000 unit) tablet Take by mouth once a week. cyclobenzaprine (FLEXERIL) 10 mg tablet gabapentin (NEURONTIN) 300 mg capsule 1 capsule by mouth daily at bedtime for 5- 7 days, then increase to 1 capsule twice a day by mouth for 5-7 days. May increase again to 1 capsule 3 times a day as tolerated. glipiZIDE (GLUCOTROL XL) 10 mg 24 hr tablet Take 10 mg by mouth daily. ibuprofen (ADVIL,MOTRIN) 800 mg tablet Take 800 mg by mouth every 8 hours as needed. insulin glargine (Lantus Solostar U-100 Insulin) 100 unit/mL (3 mL) injection pen Inject 100 Units into the skin every morning. lidocaine (LIDODERM) 5 % patch Place 1 Patch onto the skin every 24 hours. Apply for no more than 12 hours in any 24 hour period. lidocaine-prilocaine (EMLA) 2.5-2.5 % cream linaCLOtide (LINZESS) 290 mcg capsule Take 1 Cap by mouth daily. lisinopriL (PRINIVIL,ZESTRIL) 20 mg tablet Take 20 mg by mouth daily. magnesium oxide (MAG-OX) 400 mg (241.3 elemental magnesium) tablet metFORMIN (GLUCOPHAGE) 1,000 mg tablet Take 1,000 mg by mouth 2 times daily (with meals). methocarbamoL (ROBAXIN) 750 mg tablet metroNIDAZOLE (METROGEL) 1 % gel Apply to face once a day miscellaneous medical supply [facility] B-D 3CC LUER-SAV SYR 25GX1 25G X 1 3 ML Misc pen needle,diabetic dual safty 30 gauge x 3/16 needle USE 2 TIMES A DAY rosuvastatin (CRESTOR) 5 mg tablet TAKE 1 TABLET BY MOUTH EVERYDAY AT BEDTIME semaglutide (Ozempic) 1 mg/dose (4 mg/3 mL) injection pen INJECT 1MG INTO THE SKIN ONCE A WEEK ALLERGIES: @ALL@ PHYSICAL EXAM: Height 1.549 m (60.98 ), weight 83.9 kg (185 lb). PODIATRIC EXAMINATION: GENERAL: Patient appears well nourished, with NAD. VASCULAR: Dorsalis pedis pulses are 2/4 bilaterally and Posterior tibial pulses are 2/4 bilaterally. Capillary filling time within normal limits the digits. No pallor on elevation or rubor on dependency. No hair growth. Some varicosities. 1 pitting edema bilateral lower extremity denies rest pain or claudication pain. NEUROLOGICAL: Sharp/dull sensation diminished, protective sensation diminished on Twining. Multipleperipheral neuropathies bilateral lower extremity ORTHOPEDIC: Good muscle strength 5/5 of all flexors and extensors. Dorsi flexion of ankle ,10 degrees, plantar flexion WNL. No muscle atrophy. Curvature to the digits 2 through 5 bilaterally. Notablearthritic change to the midfoot bilaterally. DERMATOLOGICAL:.Fissuring to the heels bilaterally. Normal skin temperature, normal skin turgor. Nails are thickened misshapened discolored x10 with subungual debris. Ingrowing left and right great toenails at the medial borders. Small skin tear that is 3 mm in size over the proximal nail fold of the right great toe no clinical signs of infection BIOMECHANICS: STJ ROM wnl, MTJ ROM wnl, 1st MPJ ROM wnl. IMPRESSION: 1. Poorly controlled type 2 diabetes mellitus with neuropathy (CMS/HCC) 2. Pain in toes of both feet 3. Ingrowing right great toenail 4. Difficulty walking 5. Dermatophytosis, nail PLAN: Pt was seen and examined, history reviewed. Patient was educated on importance of keeping tight glucose control in order to limit chance of ulceration infection and amputation in the future Patient was once again educated on the use of topical analgesics in order to limit the sensations associated with diabetic neuropathy Patient continues to have difficulty with balance and is using a walker for safe and proper ambulation. Patient encouraged to ambulate as often as possible to keep strength up and offer cardiovascular health Patient was educated on the use of soaks weekly in order to limit the soft tissue impingement on the nail plate. Patient was educated on the use of topical antibiotic as well when needed if openings occur drainage is noted. Patient return to office immediately if she notices the symptoms recurring Nail debridement performed to nails 1-5 bilateral as nails were described to be causing pain and difficulty for walking while in shoegear at their previous length. They were debrided in thickness andlength, with no incident. Clinical evidence of mycosis is documented which required active treatment. Patient expressed immediate relief. Patient is to RTC in 9 weeks Edgar Kathleen DPM cc: No ref. provider found documented in this encounter Plan of Treatment Upcoming Encounters Date Type Department Care Team (Late st Contact Info) Description 06/25/2024 9:30 AM EDT Office Visit Orthopedic Surgery - [facility] [address] [phone] Edgar Kathleen, CORY [address] [address] documented as of this encounter Visit Diagnoses Diagnosis Poorly controlled type 2 diabetes mellitus with neuropathy (CMS/HCC)- Primary Pain in toes of both feet Ingrowing right great toenail Ingrowing nail Difficulty walking Difficulty in walking Dermatophytosis, nail Dermatophytosis of nail documented in this encounter Care Teams Senior Restaurant Manager Relationship Specialty Start Date End Date Alissa Parker PA [address] [place] [address] PCP - General Internal Medicine 06/11/15 documented as of this encounter
--- OUTSIDE RECORDS SUMMARY | 2024-05-07 10:27 | XMS_ITS | Encounter Summary ---
Author Organization [facility] Address [address] [place] [address] 7 [place] [address] Care Team Providers Care Energy Auditor Name Role Phone Unavailable Primary Care Provider Unavailabl e Encounter Details Date Type Department Care Team (Latest Contact Info) Description 12/27/2021 Abstract [facility] CONVERSIONS Dental, Provider, DDS Social History [...] Description 05/29/2024 9:00 AM EST Office Visit [facility] [address] [place], [place] [phone] Janice Mulligan BDS [address] [place], [place] [phone] documented as of this encounter Visit Diagnoses Not on filedocumented in this encounter
--- OUTSIDE RECORDS SUMMARY | 2024-05-07 10:27 | XMS_ITS | Clinical Summary ---
Author Organization [facility] Address [address] [place] [address] Care Team Providers Care Manager Industrial Name Role Phone Unavailable Primary Care Provider Unavailabl e Social History Tobacco Use Types Packs/Day Years Used Date Smoking Tobacco: Never Assessed Sex and Gender Information Value Date Recorded Sex Assigned at Not on file Gender Identity Not on file Sexual Orientation Not on file Plan of Treatment Health Maintenance Due Date Last Done Comments Hepatitis C Virus Screening 1954 DTaP/Tdap/Td Vaccines (1 - Tdap) 1973 Pneumococcal Vaccines 50+ (1 of 1 - PCV) 2004 Zoster (Shingles) Vaccine (1 of 2) 2004 COVID-19 Vaccine ( - 2023-2 5 season) 2023 RSV Vaccine 60 years and old er and Patients (1 - 1-dose 75+ series) 2029 Hepatitis B Vaccines Aged Out No long er eligible based on patient's age to complete this topic
--- OUTSIDE RECORDS SUMMARY | 2024-05-07 10:27 | XMS_ITS | Clinical Summary ---
Author Organization 175 [facility] Address [address] [place] [address] Phone Care Team Providers Care Loading Machine Tool Setter Name Role Phone Alissa Parker Primary Care Provider [phone] Allergies Active Allergy Reactions Criticality Noted Date Comments Penicillins Rash 04/26/2019 Medications Medication Sig Dispensed Refills Start Date End Date Status ammonium lactate (LAC-HYDRIN) 12 % lotion Apply to soles of feet daily. At night wear socks to bed 03/14/2023 Active aspirin 81 mg EC tablet Take 1 Tablet by mouth daily. 05/25/2022 Active atorvastatin (LIPITOR) 20 mg tablet Take 20 mg by mouth daily. Active miscellaneous medical supply [facility] B-D 3CC LUER-SAV SYR 25GX1 25G X 1 3 ML [facility] 06/27/2022 Active pen needle,diabetic dual safty 30 gauge x 3/16 needle USE 2 TIMES A DAY 05/16/2022 Activ e cholecalciferol (Dialyvite Vitamin D3 Max) 1,250 mcg (50,000 unit) tablet Take by mouth once a week. Active cyclobenzaprine (FLEXERIL) 10 mg tablet 06/26/2022 Active gabapentin (NEURONTIN) 300 mg capsule 1 capsule by mouth daily at bedtime for 5-7 days, then increase to 1 capsule twice a day by mouth for 5-7 days. May increase again to 1 capsule 3 times a day as tolerated. 04/26/2019 Active glipiZIDE (GLUCOTROL XL) 10 mg 24 hr tablet Take 10 mg by mouth daily. Active blood sugar diagnostic (FreeStyle Lite Strips) test strip 06/27/2022 Active ibuprofen (ADVIL,MOTRIN) 800 mg tablet Take 800 mg by mouth every 8 hours as needed. Active insulin glargine (Lantus Solostar U-100 Insulin) 100 unit/mL (3 mL) injection pen Inject 100 Units into the skin every morning. Active lidocaine (LIDODERM) 5 % patch Place 1 Patch onto the skin every 24 hours. Apply for no more than 12 hours in any 24 hour period. Active lidocaine-prilocaine (EMLA) 2.5-2.5 % cream 06/20/2022 Active linaCLOtide (LINZESS) 290 mcg capsule Take 1 Cap by mouth daily. Active lisinopriL (PRINIVIL,ZESTRIL) 20 mg tablet Take 20 mg by mouth daily. Active magnesium oxide (MAG-OX) 400 mg (241.3 elemental magnesium) tablet 06/27/2022 Active metFORMIN (GLUCOPHAGE) 1,000 mg tablet Take 1,000 mg by mouth 2 times daily (with meals). Active methocarbamoL (ROBAXIN) 750 mg tablet 06/27/2022 Active metroNIDAZOLE (METROGEL) 1 % gel Apply to face once a day 11/17/2020 Active semaglutide (Ozempic) 1 mg/dose (4 mg/3 mL) injection pen INJECT 1MG INTO THE SKIN ONCE A WEEK 05/30/2022 Active rosuvastatin (CRESTOR) 5 mg tablet TAKE 1 TABLET BY MOUTH EVERYDAY AT BEDTIME 04/26/2022 Active amLODIPine (NORVASC) 2.5 mg tablet TAKE 1 TABLET BY MOUTH EVERY DAY IN THE MORNING 05/12/2022 Active Active Problems Problem Noted Date Diagnosed Date Lumbar spondylosis 06/29/2022 Overview (01/19/2024): Last Assessment & Plan: Patient follows up for her back pain, 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 She has gone for about 5 sessions of PT, does the exercises at home daily, has a TENS unit at home. She states while she is doing the physical therapy and stretches it helps her and she feels better. She states overall she feels physical therapy has helped her, she still gets occasional shooting pains down the right >left legs, she gestured toward the posterior lateral leg region. She notes the more active she is during the day it helps her pain, she first wake up in the morning she has a lot of back pain and stiffness, by the end of the day she has increased pain as well. She states she cannot walk significant distances because she gets a burning across her back, she has to sit down to rest. If she has to go for a walk she will take her walker. She also mentioned on today's visit that for 3 weeks she has had pain in the right shoulder, has difficulty lifting it laterally or reaching behind the back, at physical therapy last time they tried the TENS unit on the shoulder and it helped a bit. There is no inciting event. She also mentions that she gets neck pain daily. It sounds like she uses an SI belt at times, she stopped using the LS corset. Ms. Melendez has persistent back pain, but feels it has improved since her initial office visit with the PT. She states she is not at a point where she would consider any surgical intervention. She has an appointment later this month with her PCP, I asked that they fax their office note, information given to patient's daughter. At this time she did not want to pursue anything to work-up her neck pain. She did not want any orthopedic referrals for her shoulder pain. I asked them to call if she has any worsening symptoms, questions or concerns. I did put in an order for right shoulder x-ray and shoulder PT. She will continue with her PT exercises for her low back pain, she has a follow-up appointment with Dr. Bauman in 3 months. Encounters Date Type Department Care Team Description 04/23/2024 10:30 AM EST Office Visit Orthopedic Surgery [facility] [address] [phone] Edgar Kathleen DPM Poorly controlled type 2 diabetes mellitus with neuropathy (CMS/HCC) (Primary Dx); Pain in toes of both feet; Ingrowing right great toenail; Difficulty walking; Dermatophytosis, nail 02/28/2024 9:15 AM EST Office Visit Orthopedic Surgery [facility] [address] [phone] Edgar Kathleen DPM Poorly controlled type 2 diabetes mellitus with neuropathy (CMS/HCC) (Primary Dx); Pain in toes of both feet; Ingrowing right great toenail; Arthritis of both feet; Difficulty walking; Dermatophytosis, nail 02/28/2024 Telephone Orthopedic Surgery [facility] [address] [phone] Sivan Eubanks [place] from Last 3 Months Surgical History Surgery Date Site/Laterality Comments CATARACT EXTRACTION PROCEDURE: HISTORICAL CATARACT REMOVAL SECTION PROCEDURE: NC DELIVERY ONLY HYSTERECTOMY PROCEDURE: HISTORICAL HYSTERECTOMY APPENDECTOMY PROCEDURE: HISTORICAL APPENDECTOMY Medical History Medical History Date Comments Essential (primary) hypertension DX:Essential (primary) hypertension Type 2 diabetes mellitus wit hout complications (CMS/HCC) DX:Type 2 diabetes mellitus without complications (HCC) Osteoarthritis DX:Osteoarthriti s Social History Tobacco Use Types Packs/Day Years Used Date Smoking Tobacco: Never Smokeless Tobacco: Never Tobacco Cessation:Counseling Given: Not Answered Sex and Gender Information Value Date Recorded Sex Assigned at Not on file Gender Identity Not on file Sexual Orientation Not on file Job Start Date Occupation Industry Not on file Not on file Not on file Obstetrics History Last Filed Vital Signs Vital Sign Reading Time Taken Comments Blood Pressure - - Pulse - - Temperature - - Respiratory Rate - - Oxygen Saturation - - Inhaled Oxygen Concentration - - Weight 83.9 kg (185 lb) 04/23/2024 10:44 AM EST Height 154.9 cm (5' 0.98 ) 04/23/2024 10:[address] Body Mass Index 34.97 04/23/2024 10:44 AM EST Plan of Treatment Upcoming Encounters Date Type Department Care Team (Late st Contact Info) Description 06/25/2024 9:30 AM EDT Office Visit Orthopedic Surgery [facility] [address] [phone] Edgar Kathleen DPM [address] [phone] Health Maintenance Due Date Last Done Comments Breast Cancer Screening 1955 Pneumococcal Vaccine: 65+ Years (1 of 2 - PCV) 1960 Diabetes: Annual Foot Exam 1964 Diabetes: Annual Retina Eye Exam 1964 DTaP,Tdap,and Td Vaccines (1 - Tdap) 1973 Zoster Vaccines (1 of 2) 2004 RSV Immunization Patients 60+ Years Old (1 - Risk 60-74 years 1-dose series) 2014 Colorectal Cancer Screening: Colonoscopy 03/15/2022 Falls Risk Assessment 03/15/2022 Hepatitis C Screening 03/15/2022 Medicare Annual Wellness Visit 03/15/2022 Osteoporosis Screening (Bone Density Screening) 03/15/2022 Social Influencers of Health Screening 03/15/2022 COVID-19 Vaccine ( season) 2023 Influenza Vaccine (#1) 2023 Diabetes: Blood Sugar Control Test (HGBA1C) 02/25/2024 08/25/2023 Depression Screening 05/29/2024 05/29/2023 Diabetes: Annual Urine Albumin-Creatinine Ratio (uACR) 08/24/2024 08/25/2023, 08/25/2023, 02/22/2023, Additional history exists Diabetes: Annual GFR (Glomerular Filtration Rate) 08/24/2024 08/25/2023, 08/25/2023 Hypertension/CHF/CAD Annual BMP Blood Test 08/24/2024 08/25/2023, 08/25/2023 Cholesterol Screening (Lipid Panel) 08/24/2028 08/25/2023, 08/25/2023, 08/25/2023, Additional history exists HIB Vaccines Aged Out No longer eligi [...] on patient's age to complete this topic MMR Vaccines Aged Out No longer eligi ble based on patient's age to complete this topic Meningococcal ACWY Vaccine Aged Out N o longer eligible based on patient's age to complete this topic RSV Immunization Patients Under 20 months Aged Out No longer eligible based on patient's age to complete this topic Varicella Vaccines Aged Out No longer eligible based on patient's age to complete this topic Procedures Procedure Name Priority Date/Time Associated Diagnosis Comments HM URINE ALBUMIN CREATININE RATIO Routine 08/25/2023 ANNUAL BMP BLOOD TEST Routine 08/25/2023 LIPID PANEL Routine 08/25/2023 from Last 3 Months or Most Recently Relevant to Health Maintenance Results * Urine Albumin Creatinine Ratio (08/25/2023) [facility] Urine Albumin Creatinine Ratio abstracted Historical Provider MD JUJU HAWKINS E * Annual BMP Blood Test (08/25/2023) [facility] Annual BMP Blood Test abstracted Historical Provider MD JUJU HAWKINS E * Lipid panel (08/25/2023) [facility] LDL/HDL Ratio 0 Comment:no interpretation Triglycerides 0 mg/dL Comment:no interpretation Cholesterol 0 mg/dL Comment:no interpretation HDL 0 mg/dL Comment:no interpretation LDL Cholesterol 0 mg/dL Comment:no interpretation Blood Venous blood specimen / Unknown Historical Provider LAB BLOOD ORDERAB LES from Last 3 Months or Most Recently Relevant to Health Maintenance Care Teams Loading Machine Tool Setter Relationship Specialty Start Date End Date Alissa Parker PA [address] [place] [phone] PCP - General Internal Medicine 06/11/15
--- OUTSIDE RECORDS SUMMARY | 2024-05-07 10:27 | XMS_ITS | Encounter Summary ---
Author Organization [employer] [facility] Address [address] [facility] [address] [place] [address] Care Team Providers Care Licensing Analyst Name Role Phone Unavailable Primary Care Provider Unavailabl e Reason for Visit * Reason Onset Date Comments appt 12/28/2023 Encounter Details Date Type Department Care Team (Late Contact Info) Description 12/28/2023 Telephone [facility] [address] [place] [phone] Janice Mulligan BDS [address] [place] [phone] appt Social History Tobacco Use Types Packs/Day Years Used Date Smoking Tobacco: Never Smokeless Tobacco: Never Comments Unknown Sex and Gender Information Value Date Recorded Sex Assigned at Female 02/14/2022 10:23 AM EDT Legal Sex Female 10:23 AM EDT Gender Identity Female 02/14/2022 10:23 AM EDT Sexual Orientation Straight 02/14/2022 10 :23 AM EDT documented as of this encounter Miscellaneous Notes * Telephone Encounter - Gretchen Mckeon - 12/28/2023 9:34 AM EDT Patient called in questioning reasoning for cancelling appt today at 1pm. There was an error in scheduling. help desk analyst in [facility] will reach out to patient to rs appt DR documented in this encounter Plan of Treatment Upcoming Encounters Date Type Department Care Team (Late Contact Info) Description 05/29/2024 9:00 AM EST Office Visit [facility] [address] [place] [phone] Janice Mulligan BDS [address] [place] [address] documented as of this encounter Visit Diagnoses Not on filedocumented in this encounter
--- OUTSIDE RECORDS SUMMARY | 2024-05-07 10:27 | XMS_ITS | Encounter Summary ---
Author Organization [employer] [facility] Address [address] [facility] 7t [place] [address] Care Team Providers Care Frame Pulley Mortising Machine Operator Name Role Phone Unavailable Primary Care Provider Unavailabl e Reason for Visit * Reason Onset Date Comments Prior Authorization 10/02/2023 Encounter Details Date Type Department Care Team (Late st Contact Info) Description 10/02/2023 Telephone [facility] [address] [place], [place] [phone] Janice Mulligan, BDS [address] [place], [place] [phone] Prior Authorization Social History Tobacco Use Types Packs/Day Years [...] * Telephone Encounter - Gretchen Mckeon - 10/02/2023 1:19 PM EDT Patient son looking to confirm that patient can be scheduled for crowns. Blue note dated 03/2023 onchart states no PA require but want to make sure this is the case because patient was looking to hear back. At the same time to clarify that Dr. Hodge would or would not be doing crowns for this patient. Its treatment planned and active requested with Dr. Hodge. DR documented in this encounter Plan of Treatment Upcoming Encounters Date Type Department Care Team (Late st Contact Info) Description 05/29/2024 9:00 AM EST Office Visit [facility] [address] [place] [address] Janice Mulligan BDS [address] [place] [address] documented as of this encounter Visit Diagnoses Not on filedocumented in this encounter
--- OUTSIDE RECORDS SUMMARY | 2024-05-07 10:27 | XMS_ITS | Encounter Summary ---
Author Organization [facility] [employer] [facility] Address [address] [place] [address] 7 [place] [address] Care Team Providers Care Typewriters Functional Tester Name Role Phone Unavailable Primary Care Provider Unavailabl e Encounter Details Date Type Department Care Team (Latest Contact Info) Description 10/25/2018 Abstract [facility] CONVERSIONS Dental, Provider, DDS Social History [...] Description 05/29/2024 9:00 AM EST Office Visit [facility] [address] [place], [place] [phone] Janice Mulligan BDS [address] [place], [place] [phone] documented as of this encounter Visit Diagnoses Not on filedocumented in this encounter
--- OUTSIDE RECORDS SUMMARY | 2024-05-07 10:27 | XMS_ITS | Encounter Summary ---
Author Organization [employer] [facility] Address [address] 7t [place] [address] Care Team Providers Care Descriptive Catalog Librarian Name Role Phone Unavailable Primary Care Provider Unavailabl e Reason for Visit * Reason Onset Date Comments needs appt 12/29/2023 Encounter Details Date Type Department Care Team (Late Contact Info) Description 12/29/2023 Telephone [facility] [address] [place] [address] Janice Mulligan BDS [address] [place] [address] needs appt Social History Tobacco Use Types Packs/Day [...] encounter Miscellaneous Notes * Telephone Encounter - Jacqueline Kim - 12/29/2023 9:09 AM EDT Patient is calling to get her appt remade after it was cancelled by [facility] for [facility]. Someone told hi he was going to get a call back and never did. Please reach out to patient to make appt. Thank you CS documented in this encounter Plan of Treatment Upcoming Encounters Date Type Department Care Team (Late Contact Info) Description 05/29/2024 9:00 AM EST Office Visit [facility] [address] [place], [place] [phone] Janice Mulligan, BDS [address] [place] [address] documented as of this encounter Visit Diagnoses Not on filedocumented in this encounter
[2024-05-07 10:32] VITALS: BP 168/72; PULSE 70
== END 2024-05-07 10:32 | disposition home or self-care (01) ==
PROVIDERS: PCP Physician Assistant; Visit Provider Nurse Practitioner Family
DX: E11.40 Type 2 diabetes mellitus with diabetic neuropathy, unspecified (principal); M48.062 Spinal stenosis, lumbar region with neurogenic claudication; M54.12 Radiculopathy, cervical region; M50.30 Other cervical disc degeneration, unspecified cervical region; M51.369 Other intervertebral disc degeneration, lumbar region without mention of lumbar back pain or lower extremity pain; M47.816 Spondylosis without myelopathy or radiculopathy, lumbar region; R51.9 Headache, unspecified
CPT/HCPCS: 17999; 99215

== ENCOUNTER → 2024-05-07 09:30 | Outpatient (BNVA) | payer OTHER, SELFPAY | PROVIDERS: PCP Physician Assistant; Visit Provider Nurse Practitioner Family | DX: E11.40 Type 2 diabetes mellitus with diabetic neuropathy, unspecified (principal); M48.062 Spinal stenosis, lumbar region with neurogenic claudication; M54.12 Radiculopathy, cervical region; M50.30 Other cervical disc degeneration, unspecified cervical region; M51.360 Other intervertebral disc degeneration, lumbar region with discogenic back pain only; R51.9 Headache, unspecified | CPT/HCPCS: 17999; 99212; J7336 ==

== ENCOUNTER 2024-08-08 09:42 | Outpatient (AMB) | payer OTHER, SELFPAY ==
--- NOTE | 2024-08-08 09:43 | A.OFFVIS_ITS ---
Vital Signs 3 08/08/24 09:49 08/08/24 09:50 08/08/24 09:59 08/08/24 10:36 08/08/24 10:37 Height 5 ft 2 in BP 191/79 H 191/84 H 160/68 H 175/128 H 160/80 H Blood Pressure Location Lt brachial Rt brachial Lt brachial Lt brachial Rt brachial Position Sitting Sitting Sitting Sitting Sitting Pulse 84 84 94 92 Pulse Source Pulse Oximeter Pulse Oximeter Pulse Oximeter Pulse Oximeter Pulse Oximetry (%) 97 Oxygen Delivery Method Room Air Comment bp recheck bp recheck manual 30 mins after Qutenza done manually Intake Visit Reasons: QUTENZA/jas from 08/06 Claims Service Representative Required: Yes Claims Service Representative Language: Estonian Accompanied by: Daughter Allergies Penicillins Allergy (Unknown, Verified 08/08/24 09:50) Rash HPI Comments Details: Patient presents for application of capsaicin 8% topical patch for diabetic neuropathy in bilateral feet and to review cervical spine and brain MRI results. Patient is accompanied by her daughter Jeanette. This provider speaks fluently in patient's [place] language. Patient reports a longstanding burning sensation in bilateral legs, exacerbating at night. This condition has been chronic and persisted for over two years, partially elevated with topical capsaicin applications. Additionally, she experiences near-daily headaches described as a throbbing sensation due to suspected cervical vascular compromise. Carotid ultrasound previously performed indicates some stenosis, we will send medical release request to [facility] for complete report. Her diabetic state is uncontrolled, with a hemoglobin A1C of 10.8%, despite dietary compliance, Ozempic and insulin therapy. She battles recurrent hyperglycemia episodes, adversely affecting her musculoskeletal conditions, specifically compounded by diagnosed cervical canal stenosis with multilevel degenerative changes and spondylosis as noted on recent MRI. This neck condition decreases her hand functionality significantly due to numbness, tingling and weakness. Moreover, the patient experiences gastrointestinal disturbances attributed to Ozempic, with plans to evaluate dietary and pharmaceutical alternatives actively considered. A history of cervical stenosis and small vessel ischemic cerebral changes also contribute to her complex medical history. Reports 8-9/10 in low back pain, worse with walking or prolonged standing and worsening neck pain with difficulty turning her neck to the right and bending. She reports ongoing headaches with neck pain and muscle spasms, unrelieved with Tylenol, NSAIDs, gabapentin and cyclobenzaprine. Patient reports increased neck and back pain with activities or home exercises. She is unable to participate in PT at this time due to significant pain. Patient reports visual disturbances and mild hearing loss with increased neck pain or cervical flexion which results in headache, dizziness and imbalance. She reports recent eye exam was noted for diabetic retinopathy. Denies any recent cough, cold, infection, fever or any other significant changes in medical history since last office visit. - Affect: Reports frustration with pain affecting sleep and hand function. - Analgesia: Qutenza provides partial relief. Current pain level is impacting sleep and daily activities. - Adverse Effects: Reports difficulty with bowel movements attributed to current medication regimen, particularly Ozempic. - Activities of Daily Living: Significant impact on sleep and manual dexterity; unable to perform tasks like dishwashing effectively due to hand pain. - Aberrant Drug Related Behaviors: No aberrant behaviors noted, though medication efficacy and side effects are concerns. - Neurological: Reports daily headaches, neck and back pain, burning sensation in legs. - Cardiovascular: Carotid artery stenosis reported 1-49% bilaterally. - Endocrine: Poor glycemic control noted. - Musculoskeletal: Reports neck pain, stiffness, and hand dysfunction. - Gastrointestinal: Reports GERD symptoms, bowel motility issues. - Ocular: Reports worsening vision, positive diabetic retinopathy per recent eye exam per patient and family. PRIOR: Patient presents today for follow up for worsening chronic lower back pain. She is accompanied by her daughter. Patient ambulates slowly with use of walker. She continues to experience spinal stenosis-related pain in right L5-S1 distribution. She is sitting with bending forward position to relieve her radicular pain. She has numbness and tingling in her bilateral lower legs and feet due to diabetic neuropathy but also increased heaviness and numbness in her RLE with walking or standing. Qutenza (capsaicin 8%) patch has been approved and we will schedule her in office application. EMLA cream script was sent to her pharmacy. Patient reports she recently completed oral prednisone taper through her PCP office. Patient's daughter reports most recent A1C was elevated, over 9.0. Patient is poor candidate for steroid therapy. She has completed lumbar spine MRI on 06/12/22 ordered by her PCP. These results are not available today. We reviewed records from [facility] and lumbar spine MRI with significant changes at L5-S1 level as noted below. Patient reports she was seeing chiropractor for chronic lower back pain in 2019 and after therapy, she developed severe left sided pain with sciatica and could not walk. The MRI in 2019 was completed after chiropractic session. Patient reports she was referred to neurosurgery but contracted COVID illness and was hospitalized for 21 days at [facility], including intubation. Patient reports she has completed PT since then and has been referred back to PT. PRIOR: Patient is a pleasant 66 years old Estonian speaking female who presents with chronic peripheral neuropathy in both of her feet and hands, bilateral shoulder pain and chronic back pain. She attributes her pain symptoms to degenerated discs in her spine, diabetes and arthritis. Denies any recent trauma, injury or falls. Patient reports she has been diabetic for over 25 years and her most recent A1C has been around 9. She reports hot burning, numbness and tingling with decreased sensation in her feet, mostly no sensation in her toes that happen to cramp and lock in frequently. Patient reports she used to follow Dr. Rizvi for back pain in the past for history of lumbar disc protrusions and herniations, spinal stenosis with consideration of back surgery but has declined it in 2019. Patient also states she had an unpleasant experience with an attempt for lumbar ALVERTO and had to abort her procedure due to significant pain. Patient reports progressive back and leg pain, worse with walking. She states the back pain radiates across her low back and radiates down the anterior legs to shins on the right side. Her symptoms worsen with walking or standing for 5 or less minutes. Patient reports increased pain in her shoulders with overhead arm use. Pain is described as constant dull, sore, hurting, aching, heavy, punishing, killing, tugging, pulling, wrenching, tiring, exhausting, hot burning, scalding, searing, tingling and stinging. Patient is using a walker with ambulation and reports that while walking she has to stop and take breaks frequently. She also reports using a commode at night. Patient notes partial pain relief with leaning forward. She rates her pain 7-8/10 on average doing small things around the house and 9-10/10 when walking. Patient denies any fever, abdominal or groin pain, weight changes, bowel/bladder incontinence or saddle anesthesia. Patient reports she completed many sessions of PT and HEP which was helpful for short term pain relief. She also uses the TENS unit. Patient has been taking Ibuprofen, diclofenac gel and lidocaine patches with minimal pain relief. She wears customized shoes and reports undergoing a diabetic foot exam annually. Patient reports she completed lumbar spine MRI and xrays at [facility] within the past 2 years. These results are not available for review today. Lumbar spine MRI done in 2005 showed minimal disc bulging at L4-5. [facility] Medical History Chronic midline low back pain with right-sided sciatica Onychomycosis Essential hypertension Lumbar radiculopathy, chronic Chronic painful diabetic neuropathy Review of Systems Const Details: - Burning sensation in both legs, primarily nocturnal, chronic, worsening past two years. - Headaches described as a throbbing, blood flow-related sensation in the cervical area, occurring twice daily. - Neck pain radiating into hands, affecting automation and controls supervisor, attributed to cervical canal stenosis and bone spurs. All systems reviewed & are unremarkable except as noted in HPI and below Physical Exam Vital Signs: Last Vital Signs Pulse 84 08/08/24 09:50 BP 160/68 H 08/08/24 09:59 Pulse Ox 97 08/08/24 09:49 Oxygen Delivery Method Room Air 08/08/24 09:49 General: Appears afebrile. Alert and oriented. Mood and affect appropriate. Follows and participates in conversation appropriately. Respiratory effort is unlabored. No cough. Able to transition from sit to stand with the use of walker. Ambulates with bilaterally normal heel strike and toe off. HEENT Head: Yes normal to inspection, Yes No palpable skull fracture present, Yes normocephalic, Yes atraumatic, No occipital foramen tenderness, No scalp tenderness and No Temporal artery tenderness present Eyes General: appearance normal, both eyes and all related structures Visual Salazar: normal visual salazar by confrontation Pupils: Equal, round and reactive pupils present Neck Other: Patient with decreased cervical ROM in all planes/especially with right lateral rotation. Reports increased pain with cervical flexion and flexion and lateral bending. Spurling compression test is positive. Pain is unchanged by Spurling maneuver with retraction. Elvey's tension test positive bilaterally, with radiation of pain from neck to wrist and hands. Lhermitte's test was negative. DTR intact but diminished bilaterally. Decreased hand grasps, with left 4/5 and right 3/5 motor strength of bilateral upper extremities. Reports neuropathy in bilateral upper and lower extremities. 2 + radial pulses. Significant tightness throughout right upper trapezius as well as TTP throughout bilateral upper trapezius muscles. Reports headache and increased neck pain with flexion and ROM. Mild paravertebral tenderness over facet joints bilaterally. Neck: Yes normal visual inspection, Yes no lymphadenopathy, Yes no meningeal signs, Yes supple, No anterior neck swelling, Yes no JVD, No prominent supraclavicular fat pad and Yes prominent dorsocervical fat pad Cardio Jugular venous distension: no JVD Palpation: normal PMI Rate: regular rate Rhythm: regular rhythm Peripheral pulses: Peripheral pulses 2+ throughout GI Inspection: Yes obesity Palpation (GI): Soft to palpation, nontender and no guarding General: Yes no CVA tenderness Back/Spine/Pelvis Back: no CVA tenderness Cervical Spine: cervical ROM normal and No Cervical spine tenderness Thoracic/Lumbar Spine: thoracic and lumbar spine normal to inspection, Lasegue's sign negative, straight leg raise negative bilaterally, pain with thoraco-lumbar ROM, paraspinal muscle tenderness, thoraco-lumbar ROM limited, No thoracic spinal tenderness and lumbar spinal tenderness (L4-S1) Sacroiliac joints: bilaterally tender to palpation Neuro General: no meningeal signs Cranial nerves: Yes Equal, round and reactive pupils present Extrem Other: There is decreased sensation over the soles of the feet and toes, especially big toes and lateral foot bilaterally, right worse than left. No soft tissue swelling, redness or warmth. Normal capillary refill. No clubbing, cyanosis or edema. No calf tenderness. Pulses +2 throughout bilaterally. General: Yes capillary refill normal, Yes no clubbing, cyanosis or edema and Yes no calf tenderness Office Procedures Topical Capsaicin Date(s) of prior application(s): See EMR for previous applications in 2023 Date 1:: 05/07/24 Date 2:: 08/08/24 Laterality: Bilateral Location of left foot pain: Anterior, Posterior, Plantar, Proximal, Dorsal, Medial, Lateral and Distal Location of right foot pain: Anterior, Posterior, Plantar, Proximal, Dorsal, Medial, Lateral and Distal Quality of pain: Aching, Stabbing, Nagging, Burning, Gnawing, Numb-like, Tiring and Penetrating Details:: Two patches, 560 cm2 were utilized per each foot. EMLA Cream (lidocaine 2.5% and prilocaine 2.5%) was applied at home by patient prior to application of the patches. The patient tolerated the procedure well. Patient?s vitals signs remained stable throughout the procedure. Patient was able to complete the stipulated 30 minutes of the therapeutic application without any discomfort. Office Meds capsaicin-skin cleanser 8 % topical kit Performing Provider: DONALD Espinosa Performing Location: [facility] Administered by: DONALD Espinosa on 08/08/24 09:59 2 Dose Route Admin Location Dispensed Lot Number Expiration Date [facility] Personnel Director 4 ea topical [facility] 4 ea [id number] 11/15/25 [id number] [employer] Results Reviewed Results Reviewed: MR BRAIN without CONTRAST 05/15/24 at [facility] INDICATION: Headache, unspecified. Other cervical disc degeneration, unspecified cervical region. Cervical region radiculopathy. Neck and lower back burning, stabbing and pulling pain for over one year. Additional History: Arthritis. TECHNIQUE: Multi-planar, multi-sequence MR imaging of the brain was performed without contrast. COMPARISON: None Available. FINDINGS: Diffusion-weighted imaging demonstrates no area of restricted diffusion to suggest acute infarction. There is no intracranial hemorrhage, midline shift, mass effect, or extra-axial fluid collection. There are mild scattered patchy areas of T2 prolongation within the subcortical and deep periventricular white matter, suggesting changes of chronic microvascular ischemia. Brain parenchyma otherwise demonstrates normal morphology and signal characteristics. Midline structures are within normal limits. Major intracranial vessels demonstrate preserved flow voids. Brain volume and ventricular system are within normal limits for age. Visualized paranasal sinuses are unremarkable. Orbits, globes, and mastoid air cells are unremarkable. IMPRESSION: No acute intracranial finding. MR SPINE CERVICAL without CONTRAST 05/15/24 INDICATION: Other cervical disc degeneration, unspecified cervical region. Cervical region radiculopathy. Headache, unspecified. Neck and lower back burning, stabbing and pulling pain for over one year. Additional History: Arthritis. TECHNIQUE: Unenhanced multiplanar, multisequence MR imaging of the cervical spine. COMPARISON: None Available. FINDINGS: Normal cervical alignment is demonstrated. Vertebral heights are well maintained. Craniocervical junction is unremarkable. Bone marrow signal is within normal limits, and no suspicious osseous lesion is identified. Prevertebral and paraspinal soft tissues are within normal limits. Visualized portions of the posterior fossa are unremarkable. Cervical cord demonstrates normal course, caliber, and signal characteristics. No epidural fluid collection or hematoma is identified. At C2-3 there is no significant disc herniation or protrusion. No central canal or neural foraminal stenosis is demonstrated. At C3-4 disc-osteophyte complex with vtsz-lg-opjrnyvj canal narrowing and rlum-qv-afyuqmxe bilateral foraminal narrowing. At C4-5 disc osteophyte complex with nqmocufi-ck-uyggra canal stenosis and at least moderate bilateral foraminal narrowing. At C5-6 disc-osteophyte complex with moderate canal narrowing and ysiadrpv-vu-fkhpmu bilateral foraminal narrowing. At C6-7 disc-osteophyte complex with fqsp-nn-rnuurotb canal narrowing and pmexabbl-vx-gywsnb bilateral foraminal narrowing. At C7-T1 disc-osteophyte complex with ffro-nj-ncceytfu canal narrowing and mild bilateral foraminal narrowing. IMPRESSION: 1.Weky-hd-ongmdghm multilevel degenerative disc disease with loss of disc height and disc desiccation seen diffusely throughout the cervical spine. 2.Vertebral heights are preserved. No malalignments. 3.Disc-osteophyte complex formation with multilevel canal stenosis, tygleoxl-ks-krjvyz at C4-5 level, moderate at C5-6 level. No evidence of disc herniation. 4.Disc-osteophyte complex formation with multilevel foraminal narrowing as above, oyowllkh-va-qmiyhn at C5-6 and C6-7 levels. 5.No STIR signal abnormality to suggest bone marrow edema, soft tissue or ligamentous injury. Assessment & Plan Assessment & Plan (1) Chronic painful diabetic neuropathy: Code(s): E11.40 - Type 2 diabetes mellitus with diabetic neuropathy, unspecified Category: Medical (2) Cervical radiculopathy: Code(s): M54.12 - Radiculopathy, cervical region Category: Medical (3) Cervical spinal stenosis: Code(s): M48.02 - Spinal stenosis, cervical region Category: Medical (4) Degenerative disc disease, cervical: Code(s): M50.30 - Other cervical disc degeneration, unspecified cervical region Category: Medical (5) Spinal stenosis of lumbar region with neurogenic claudication: Code(s): M48.062 - Spinal stenosis, lumbar region with neurogenic claudication Category: Medical (6) Lumbar degenerative disc disease: Code(s): M51.36 - Other intervertebral disc degeneration, lumbar region Category: Medical (7) Lumbar spondylosis: Code(s): M47.816 - Spondylosis without myelopathy or radiculopathy, lumbar region Category: Medical (8) Headache: Code(s): R51.9 - Headache, unspecified Category: Medical Plan Patient is status post application of topical capsaicin 8% for diabetic neuropathy in bilateral feet. She continues to reports this has been partially helpful for chronic diabetic neuropathy in her feet. Patient tolerated the procedure without significant discomfort. For cervical radiculopathy and worsening headache, we reviewed MRI of the cervical spine and brain/head as noted above. We also reviewed interventional treatments for radicular low back and neck pain. Unfortunately, patient's A1C remains too elevated to consider therapeutic injections or procedures. She has upcoming PCP follow up next week and potentially will proceed with urgent Endocrinology and Vascular evaluations. For cervical spinal stenosis, I will send referral to Dr. Hines, [facility] for neurosurgical evaluation. Patient was discharged home in stable condition with discharge instructions. Follow up in 3 months for Qutenza and sooner as needed. Patient was informed and verbally consented to the use of an ambient scribe for clinic note documentation during this visit. I hereby testify that I spent 55 minutes in conversation with this patient as well as with planning and coordinating care for this patient and organizing this note. Orders: Orders 2 AMB Capsaicin Patch - Practice Supplied Today E11.40 - Type 2 diabetes mellitus with diabetic neuropathy, unspecified Referrals 2 Neurosurgery Referral M48.02 - Spinal stenosis, cervical region, M50.30 - Other cervical disc degeneration, unspecified cervical region, M54.12 - Radiculopathy, cervical region Patient Instructions: During the consultation, I discussed at length the complexity of the patient's overlapping conditions, how chronic neuropathy and spine osteoarthritis with spinal stenosis and degenerative disc changes interplay with poor diabetic control, and the need for multipronged management. I highlighted that effective glycemic control may improve overall symptomatology, with a trial on altering Ozempic usage based on digestive tolerance which patient will discuss with PCP next week. We explored the benefits of vascular intervention amidst carotid artery disease and emphasized regular ophthalmologic surveillance due to existing diabetic retinopathy. I outlined the urgency for multidisciplinary collaboration with endocrinology and potentially vascular specialties. We have a mutual understanding on focusing care efforts, reassessing outcomes, and emphasizing the careful use of pain management strategies in parallel with routine care. Coding Level of Care Code Est Pt Level 5 (91991) Complex EM visit Add On G2211 Diagnoses Chronic painful diabetic neuropathy E11.40 Cervical radiculopathy M54.12 Cervical spinal stenosis M48.02 Degenerative disc disease, cervical M50.30 Spinal stenosis of lumbar region with neurogenic claudication M48.062 Lumbar degenerative disc disease M51.36 Lumbar spondylosis M47.816 Headache R51.9
[2024-08-08 09:49] VITALS: BP 191/79; PULSE 84; O2SAT 97
[2024-08-08 09:50] VITALS: BP 191/84; PULSE 84
[2024-08-08 09:59] VITALS: BP 160/68
[2024-08-08 10:36] VITALS: BP 175/128; PULSE 94
[2024-08-08 10:37] VITALS: BP 160/80; PULSE 92
--- OUTSIDE RECORDS SUMMARY | 2024-08-08 10:47 | XMS_ITS | Encounter Summary ---
Author Organization [employer] [facility] Address [address] [facility] 7t [place] [address] Care Team Providers Care Needle Loom Tender Name Role Phone Janice Mulligan BDS Primary Care Provide r Encounter Details Date Type Department Care Team (Latest Contact Info) Description 10/25/2018 Abstract [facility] CONVERSIONS Dental, Provider, DDS Social History Tobacco Use Types Packs/Day Years Used Date Smoking Tobacco: Never Assessed Comments Unknown Sex and Gender Information Value Date Recorded Sex Assigned at Female 02/14/2022 10:23 AM EDT Legal Sex Female 10:23 AM EDT Gender Identity Female 02/14/2022 10:23 AM EDT Sexual Orientation Straight 02/14/2022 10 :23 AM EDT documented as of this encounter Plan of Treatment Not on file documented as of this encounter Visit Diagnoses Not on filedocumented in this encounter Care Teams Needle Loom Tender Relationship Specialty Start Date End Date Janice Mulligan BDS [address] [place] [phone] PCP - General Dental Internet Marketing Director 05/29/24 documented as of this encounter
--- OUTSIDE RECORDS SUMMARY | 2024-08-08 10:47 | XMS_ITS | Encounter Summary ---
Author Organization [employer] Address [address] [facility] [address] 7t [place] [address] Care Team Providers Care Activities Leader Name Role Phone Janice Mulligan BDLuis Primary Care Provide r Reason for Visit * Reason Onset Date Comments needs appt 12/29/2023 Encounter Details Date Type Department Care Team (Late st Contact Info) Description 12/29/2023 Telephone [facility] ADULT DENTAL [address] [place] [address] Janice Mulligan BDS [address] [place], [place] [phone] needs appt Social History Tobacco Use Types [...] appt remade after it was cancelled by [facility] for crown. Someone told hi he was going to get a call back and never did. Please reach out to patient to make appt. Thank you CS documented in this encounter Plan of Treatment Not on file documented as of this encounter Visit Diagnoses Not on filedocumented in this encounter Care Teams Activities Leader Relationship Specialty Start Date End Date Janice Mulligan BDS [address] [place] [phone] PCP - General Dental Aeronautical Engineering Technologist 05/29/24 documented as of this encounter
--- OUTSIDE RECORDS SUMMARY | 2024-08-08 10:47 | XMS_ITS | Encounter Summary ---
Author Organization [employer] [facility] Address [address] [facility] 7t [place] [address] Care Team Providers Care Edge Burnisher Name Role Phone Janice Mulligan BDS Primary Care Provide r Encounter Details Date Type Department Care Team (Latest Contact Info) Description 06/17/2020 Abstract [facility] CONVERSIONS Dental, Provider, DDS Social History [...] on filedocumented in this encounter Care Teams Edge Burnisher Relationship Specialty Start Date End Date Janice Mulligan BDS [address] [place] [phone] PCP - General Dental Slasher Sawyer 05/29/24 documented as of this encounter
--- OUTSIDE RECORDS SUMMARY | 2024-08-08 10:47 | XMS_ITS | Encounter Summary ---
Author Organization [employer] Address [address] [facility] 7t [place] [address] Care Team Providers Care Head Cashier Name Role Phone Janice Mulligan BDS Primary Care Provide r Reason for Visit * Reason Onset Date Comments appt 12/28/2023 Encounter Details Date Type Department Care Team ([facility] st Contact Info) Description 12/28/2023 Telephone [facility] DENTAL [address] [place], [place] [phone] Janice Mulligan BDS [address] [place], [place] [phone] appt Social History Tobacco Use Types Packs/Day [...] 1pm. There was an error in scheduling. windows desktop engineer in [facility] will reach out to patient to rs appt DR documented in this encounter Plan of Treatment Not on file documented as of this encounter Visit Diagnoses Not on filedocumented in this encounter Care Teams Head Cashier Relationship Specialty Start Date End Date Janice Mulligan BDS [address] [place] [address] PCP - General Dental Gear Shaper Set Up Operator 05/29/24 documented as of this encounter
--- OUTSIDE RECORDS SUMMARY | 2024-08-08 10:47 | XMS_ITS | Encounter Summary ---
Author Organization [employer] [facility] Address [address] [facility] 7t [place] [address] Care Team Providers Care Warper Tender Name Role Phone Janice Mulligan BDS Primary Care Provide r Reason for Visit * Reason Onset Date Comments appt 05/23/2023 Encounter Details Date Type Department Care Team ([facility] [address] Contact Info) Description 05/23/2023 Telephone [facility] DENTAL [address] [place], [place] [phone] Janice Mulligan BDS [address] [place] [phone] appt Social History Tobacco Use Types Packs/Day [...] not sure how to schedule crowns in [place] but it is requested to be with Dr. Hodge. Pls contact patient documented in this encounter Plan of Treatment Not on file documented as of this encounter Visit Diagnoses Not on filedocumented in this encounter Care Teams Warper Tender Relationship Specialty Start Date End Date Janice Mulligan BDS [address] [place] [phone] PCP - General Dental Outboard Technician 05/29/24 documented as of this encounter
--- OUTSIDE RECORDS SUMMARY | 2024-08-08 10:47 | XMS_ITS | Encounter Summary ---
Author Organization [employer] [facility] Address [address] [facility] 7t [place] [address] Care Team Providers Care Services Executive Name Role Phone Janice Mulligan BDS Primary Care Provide r Encounter Details Date Type Department Care Team (Latest Contact Info) Description 12/27/2021 Abstract [facility] CONVERSIONS Dental, Provider, DDS Social History Tobacco [...] on filedocumented in this encounter Care Teams Services Executive Relationship Specialty Start Date End Date Janice Mulligan BDS [address] [place] [phone] PCP - General Dental Wooden Fence Erector 05/29/24 documented as of this encounter
--- OUTSIDE RECORDS SUMMARY | 2024-08-08 10:47 | XMS_ITS | Encounter Summary ---
Author Organization [employer] Address [address] [facility] 7t [place] [address] Care Team Providers Care State Game Warden Name Role Phone Ese Emigdiojoshua BDS Primary Care Provide r Reason for Visit * Reason Onset Date Comments Prior Authorization 10/02/2023 Encounter Details Date Type Department Care Team ([facility] st Contact Info) Description 10/02/2023 Telephone [facility] DENTAL [address] [place], [place] [phone] RembertoJanice love BDS [address] [place], [place] [phone] Prior Authorization Social History Tobacco Use Types [...] on filedocumented in this encounter Care Teams State Game Warden Relationship Specialty Start Date End Date Janice Mulligan BDS [address] [place] [phone] PCP - General Dental Sports Management Intern 05/29/24 documented as of this encounter
--- OUTSIDE RECORDS SUMMARY | 2024-08-08 10:48 | XMS_ITS | Clinical Summary ---
Author Organization [facility] Address [address] [facility] 7t [place] [address] Care Team Providers Care Records Technician Name Role Phone Janice Mulligan BDS Primary Care Provide r Allergies Active Allergy Reactions Criticality Noted Date [...] Encounters Date Type Department Care Team Description 07/09/2024 10:00 AM EDT Office Visit [facility] DENTAL [address] [place] [phone] Janice Mulligan BDS 06/25/2024 9:00 AM EDT Office Visit [facility] DENTAL [address] [place] [address] Janice Mulligan BDS 05/30/2024 4:00 PM EST Office Visit [facility] DENTAL [address] [place] [address] Janice Mulligan BDS 05/29/2024 9:00 AM EST Office Visit [facility] DENTAL [address] [place] [phone] Janice Mulligan BDS from Last 3 Months [...] Mass Index - - Plan of Treatment Health Maintenance Due Date Last Done Comments CT Colonography 1954 Colonoscopy 1954 Colorectal Cancer Screening 1954 Depression Screening 1954 FIT DNA/Cologuard 1954 FIT 1954 FOBT 1954 Lipid Panel 1954 SDOH Screening 1954 Sigmoidoscopy 1954 Alcohol/Substance Use Screening 1966 Hepatitis C Screening 1972 DTaP/Tdap/Td Vaccines (1 - Tdap) 1973 Pneumococcal Vaccine: 50+ Years (1 of 2 - PCV) 1973 Mammogram 1994 Zoster Vaccines (1 of [...] 2023 Influenza Vaccine (#1) 2023 Tobacco Screening 07/09/2025 07/09/2024 Dental X-Ray: Full Mouth 03/16/2026 023, 10/27/2020, [...] Procedure Name Priority Date/Time Associated Diagnosis Comments 10 CROWN - PORCELAIN/CERAMIC Routine 07/09/2024 10:00 AM EDT 9 CROWN - PORCELAIN/CERAMIC Routine 07/09/2024 10:00 AM EDT NO CHARGE PROCEDURE Routine 06/25/2024 9 :00 AM EDT 8 CROWN - PORCELAIN/CERAMIC Routine 05/30/2024 4:00 PM EST 7 CROWN - PORCELAIN/CERAMIC Routine 05/30/2024 4:00 PM EST NO CHARGE PROCEDURE Routine 05/29/2024 9 :00 AM EST 3 PFM CROWN Routine 05/29/2024 12:00 AM EST 4 PFM CROWN Routine 05/29/2024 12:00 AM EST PANORAMIC RADIOGRAPHIC IMAGE Routine 03/15/2023 8:00 AM EST PROPHYLAXIS - ADULT Routine 12/27/2021 1 2:00 AM EDT BITEWINGS - 4 RADIOGRAPHIC IMAGES Routine 12/27/2021 12:00 AM EDT PERIODIC ORAL EVALUATION - ESTABLISHED PATIENT Routine 12/27/2021 12:00 AM EDT from Last 3 Months or Most Recently Relevant to Health Maintenance Insurance Care Teams Records Technician Relationship Specialty Start Date End Date Janice Mulligan BDS [address] [facility] [place] [address] PCP - General Dental Adjunct Mathematics Instructor 05/29/24
--- OUTSIDE RECORDS SUMMARY | 2024-08-08 10:48 | XMS_ITS | Clinical Summary ---
Author Organization [address] [facility] Address [address] [place] [address] Phone Care Team Providers Care Language Tutor Name Role Phone Alissa Parker Primary Care Provider [phone] Allergies Active Allergy Reactions Criticality Noted Date Comments Penicillins Rash 04/26/2019 Medications ammonium lactate (LAC-HYDRIN) 12 % lotion Apply to soles of feet daily. At night wear socks to bed 03/14/2023 Active aspirin 81 mg EC tablet Take 1 Tablet by mouth daily. 05/25/2022 Active atorvastatin (LIPITOR) 20 mg tablet Take 20 mg by mouth daily. Active miscellaneous medical supply [facility] B-D 3CC LUER-SAV SYR 25GX1 25G X 1 3 ML [facility] 06/27/2022 Active pen needle,diabetic dual safty 30 gauge x 3/16 needle USE 2 TIMES A DAY 05/16/2022 Active cholecalciferol (Dialyvite Vitamin D3 Max) 1,250 mcg [...] hours in any 24 hour period. Active lidocaine-prilo kamari (EMLA) 2.5-2.5 % cream 06/20/2022 Act britt linaCLOtide (LINZESS) 290 mcg capsule Take 1 Cap by mouth daily. Active lisinopriL (PRINIVIL,ZESTR IL) 20 mg tablet Take 20 mg by [...] Encounters Date Type Department Care Team Description 06/28/2024 11:30 AM EDT Office Visit Orthopedic Surgery - [address] [phone] Edgar Kathleen DPM Poorly controlled type 2 diabetes mellitus with neuropathy ([facility] V24, [facility] V28) (Primary Dx); Pain in toes of both feet; Ingrowing right great toenail; Dermatophytosis, nail from Last 3 Months Surgical History Surgery Date Site/Laterality Comments CATARACT EXTRACTION PROCEDURE: HISTORICAL CATARACT REMOVAL SECTION PROCEDURE: UT DELIVERY ONLY HYSTERECTOMY PROCEDURE: HISTORICAL HYSTERECTOMY APPENDECTOMY PROCEDURE: HISTORICAL APPENDECTOMY Medical History Medical History Date Comments Essential (primary) hypertension DX:Essential (primary) hypertension Type 2 diabetes mellitus wit hout complications ([facility] V24, [facility] V28) DX:Type 2 miguelangel betes mellitus without complications (HCC) Osteoarthritis DX:Osteoarthriti s Social History Tobacco Use Types Packs/Day Years Used Date Smoking Tobacco: Never Smokeless Tobacco: Never Tobacco Cessation:Counseling Given: Not Answered Comments Unknown Sex and Gender Information Value Date Recorded Sex Assigned at Not on file Legal Sex Female 11:33 AM EST Gender Identity Not on file Sexual Orientation Not on file Obstetrics History Last Filed [...] Care Team (Late st Contact Info) Description 09/03/2024 8:45 AM EDT Office Visit Orthopedic Surgery - [place] [address] [address] [facility] [address] [place] [phone] Edgar Kathleen, CORY [address] [address] Health Maintenance Due Date Last Done Comments Breast Cancer Screening 1954 Diabetes: Annual Foot Exam 1964 Diabetes: Annual Retina Eye Exam 1964 DTaP,Tdap,and Td Vaccines (1 - Tdap) 1973 Pneumococcal Vaccine: 50+ Years (1 of 2 - PCV) 1973 Zoster Vaccines (1 of 2) 2004 RSV Immunization Adult Patients (1 - Risk 60-74 years 1-dose series) 2014 Colorectal Cancer Screening: Colonoscopy 03/15/2022 Falls Risk Assessment 03/15/2022 Hepatitis C Screening 03/15/2022 Medicare Annual Wellness Visit 03/15/2022 Osteoporosis Screening (Bone Density Screening) 03/15/2022 Social Influencers of Health Screening 03/15/2022 COVID-19 Vaccine ( season) 2023 Diabetes: Annual Urine Albumin-Creatinine Ratio (uACR) 08/24/2024 08/25/2023, 08/25/2023, 02/22/2023, Additional history exists Diabetes: Blood Sugar Control Test (HGBA1C) 11/18/2024 05/21/2024, 08/25/2023 Influenza Vaccine (Season Ended) 2024 Depression Screening 05/21/2025 05/21/2024 Diabetes: Annual GFR (Glomerular Filtration Rate) 05/21/2025 05/21/2024, 08/25/2023, 08/25/2023 Hypertension/CHF/CAD Annual BMP Blood Test 05/21/2025 05/21/2024, 08/25/2023, 08/25/2023 Cholesterol Screening (Lipid Panel) 05/21/2029 05/21/2024, 05/21/2024, 08/25/2023, Additional history exists HIB Vaccines Aged [...] patient's age to complete this topic Meningococcal B Vaccine Aged Out No l onger eligible based on patient's age to complete this topic RSV Immunization Patients Under 20 months Aged Out No longer eligible based on patient's age to complete this topic Varicella Vaccines Aged Out No longer eligible based on patient's age to complete this topic Procedures Procedure Name Priority Date/Time Associated Diagnosis Comments URINE ALBUMIN CREATININE RATIO Routine 08/25/2023 ANNUAL BMP BLOOD TEST Routine 08/25/2023 LIPID PANEL Routine 08/25/2023 from Last 3 Months or Most Recently Relevant to Health Maintenance Results * Urine Albumin Creatinine Ratio (08/25/2023) Urine Albumin Creatinine Ratio abstracted us Historical Provider HEALTH MAINTENANCE Final Result * Annual BMP Blood Test (08/25/2023) Annual BMP Blood Test abstracted Historical Provider HEALTH MAINTENANCE Final Result from Last 3 Months or Most Recently Relevant to Health Maintenance Insurance [facility] MEDICARE Member Subscriber Plan / Payer (Ef fective 2020-Present) Name:Teri Melendez Relation to Subscriber:Self Name:Teri Melendez Payer ID:[id number] Group ID:[id number] Type:Not on file Address: [place] [address] [address] [phone] Care Teams Language Tutor Relationship Specialty Start Date End Date Alissa Parker PA [address] [place] [address] PCP - General Internal Medicine 06/11/15
--- OUTSIDE RECORDS SUMMARY | 2024-08-08 10:48 | XMS_ITS | Clinical Summary ---
Author Organization [facility] Address [address] [place] [address] Care Team Providers Care Unitizer Name Role Phone Griselda Greer PA-C Primary Care Provider [phone] Source Comments PLEASE NOTE, if this patient is a minor, it may be UNLAWFUL to discuss sensitive information that is contained in these records (such as FAMILY PLANNING, MENTAL HEALTH or SUBSTANCE ABUSE) with the minor patient's parent or other person without the patient's specific authorization.[facility] Allergies Active Allergy Reactions Criticality Noted Date Comments Dulaglutide Itching 11/07/2014 Eggs High 08/20/2021 Rash Penicillins 11/06/2012 Medications BD LUER-SAV SYRINGE 3 mL 25 gauge x 1 Indications:Di etary B12 deficiency USE EVERY MONTH FOR VITAMIN B12 100 Each 11 023 Active magnesium oxide (MAG-OX) 400 mg (241.3 mg magnesium) tabletIndication s:Functional constipation Take 1 Tablet by mouth once daily 90 Tablet 3 023 Active blood-glucose meter monitoring kitIndications:T ype 2 diabetes mellitus without complication, with long-term current use of insulin (HCC-CMS) 1 Each daily. Freestyle lite meter, disp 1, lifetime need, dx E11.9 1 Each 023 Active gabapentin (NEURONTIN) 300 mg capsuleIndicatio ns:Degenerative lumbar disc Take 1 tab po qhs for leg pain 90 Capsule 1 023 Active flash glucose sensor (FREESTYLE CAROL 2 SENSOR) kitIndications:T ype 2 diabetes mellitus without complication, with long-term current use of insulin ([facility]) 1 Each by miscellaneous route every 14 (fourteen) days 2 Each Active flash glucose scanning reader (FREESTYLE CAROL 2 READER) miscIndications: Type 2 diabetes mellitus without complication, with long-term current use of insulin ([facility]) 1 Units by miscellaneous route once daily 1 Each Active MISCELLANEOUS MEDICAL SUPPLY MISCIndications: Chronic midline low back pain with right-sided sciatica by miscellaneous route daily. Lumbar support pillow for chair, disp1, lifetime need, dx lumbar disc disease 1 Each 023 Active sennosides-docus ate sodium (TOMMY-COLACE) 8.6-50 mg per tabletIndication s:Functional constipation Take 2 Tablets by mouth nightly at bedtime as needed for constipation 180 Tablet 1 Active blood sugar diagnostic (FREESTYLE LITE STRIPS) stripsIndication s:Uncontrolled type 2 diabetes mellitus with hyperglycemia ([facility]) USE DIRECTED TWICE A DAY DX E11.9 100 Each Active cholecalciferol (VITAMIN D-3) 50 mcg (2,000 unit) tabletIndication s:Mild vitamin D deficiency TAKE 1 CAPSULE BY MOUTH ONCE DAILY 90 Tablet 2 024 Active fluticasone-umec lidinum-vilanter ol (TRELEGY ELLIPTA) 100-62.5-25 mcg inhalerIndicatio ns:Chronic cough Inhale 1 Puff into the lungs once daily 30 Each 024 Active MISCELLANEOUS MEDICAL SUPPLY MISCIndications: Mixed incontinence,Pel shyanne relaxation by miscellaneous route daily. Bladder control pads, disp 120/month, dx mixed incontinence, pelvic relaxation syndrome 120 Each 024 Active disposable glovesIndication s:Mixed incontinence,Pel shyanne relaxation XL gloves, disp 100/month, dx mixed incontinence, pelvic relaxation syndrome 100 Each 024 Active MISCELLANEOUS MEDICAL SUPPLY MISCIndications: Mixed incontinence,Pel shyanne relaxation by miscellaneous route daily. Reusable bed liners, disp 2/month, dx mixed incontinence, pelvic relaxation syndrome 2 Each 024 Active MISCELLANEOUS MEDICAL SUPPLY MISCIndications: Mixed incontinence,Pel shyanne relaxation by miscellaneous route daily. Personal wipes, disp 120/month, dx mixed incontinence, pelvic relaxation syndrome 120 Each 11 024 Active lisinopriL 20 mg tabletIndication s:Essential hypertension, benign TAKE 1 TABLET BY MOUTH TWICE A DAY 180 Tablet 3 024 Active ibuprofen 600 mg tabletIndication s:Chronic midline low back pain with right-sided sciatica TAKE 1 TABLET BY MOUTH 3 (THREE) TIMES DAILY NEEDED FOR HEADACHES OR PAIN 270 Tablet 2 024 Active pen needle, diabetic 29 gauge x /2 ndleIndications: Type 2 diabetes mellitus without complication, with long-term current use of insulin ([facility]) Use bid, dx E11.9 100 Each 11 Active nystatin (MYCOSTATIN) 100,000 unit/gram powderIndication s:Intertrigo Apply topically 4 (four) times daily 30 g 2 024 Active nystatin (MYCOSTATIN) 100,000 unit/gram ointmentIndicati ons:Intertrigo Apply topically 2 (two) times daily 30 g 1 024 Active albuterol HFA 90 mcg/actuation inhalerIndicatio ns:Mild intermittent asthmatic bronchitis without complication ([facility]) INHALE 2 PUFFS 4 TIMES A DAY NEEDED FOR COUGH 18 Each 3 024 Active albuterol HFA 90 mcg/actuation inhaler Inhale 2 Puffs into the lungs every 4 to 6 (four to six) hours as needed for shortness of breath 18 g 6 024 Active MISCELLANEOUS MEDICAL SUPPLY MISC by miscellaneous route daily. [facility]: reusable bed liners, personal wipes, medium gloves 1 Each 024 Active MISCELLANEOUS MEDICAL SUPPLY MISCIndications: Type 2 diabetes mellitus without complication, with long-term current use of insulin ([facility]),Periph eral neuropathic pain by miscellaneous route daily. Diabetic shoes, disp 1 pair, dx diabetes with peripheral neuropathy 1 Each 024 Active MISCELLANEOUS MEDICAL SUPPLY MISCIndications: Type 2 diabetes mellitus without complication, with long-term current use of insulin ([facility]),Periph eral neuropathic pain by miscellaneous route daily. Diabetic shoe inserts, disp 2, lifetime need, dx diabetes with peripheral neuropathy 2 Each 024 Active amLODIPine (NORVASC) 2.5 mg tabletIndication s:Essential hypertension, benign TAKE 1 TABLET BY MOUTH EVERY DAY IN THE MORNING 90 Tablet 2 0[address] Active aspirin [address] tabletIndication s:Type 2 diabetes mellitus without complication, with long-term current use of insulin ([facility]) TAKE 1 TABLET BY MOUTH EVERY DAY 90 Tablet 2 024 Active pen needle, diabetic (BD CORY 2ND GEN PEN NEEDLE) 32 gauge x 5/32 ndle USE 2 TIMES A DAY WITH LANTUS 200 Each 11 024 Active metFORMIN (GLUCOPHAGE) 1,000 mg tabletIndication s:Type 2 diabetes mellitus without complication, with long-term current use of insulin ([facility]) TAKE 1 TABLET BY MOUTH TWICE A DAY 180 Tablet 2 024 Active docusate sodium (COLACE) 100 mg capsuleIndicatio ns:Functional constipation Take 2 Capsules by mouth nightly at bedtime 180 Capsule 3 025 Active polyethylene glycol, PEG, 3350 (GLYCOLAX) 17 gram/dose powderIndication s:Functional constipation Take 17 g by mouth 2 (two) times daily Dissolve in a glass (8 oz) of water. 3060 g 3 025 Active rosuvastatin (CRESTOR) 20 mg tabletIndication s:Hyperlipidemia with target LDL less than 70 Take 1 Tablet by mouth nightly at bedtime DOSE increase 90 Tablet 3 025 Active semaglutide (OZEMPIC) 2 mg/dose (8 mg/3 mL) pen injectorIndicati ons:Type 2 diabetes mellitus without complication, with long-term current use of insulin ([facility]) Inject 2 mg into the skin once a week DOSE increase 6 mL 6 025 Active codeine-guaifene sin (ROBITUSSIN-AC) 10-100 mg/5 mL syrupIndications :Acute URI Take 5 mL by mouth 3 (three) times daily as needed for cough or congestion 120 mL 025 Active MISCELLANEOUS MEDICAL SUPPLY MISCIndications: ONEIL (obstructive sleep apnea) by miscellaneous route daily Auto CPAP 10-15 cmH2o with Airfit F20 medium mask with heated humidifier, Severe ONEIL dx, fax to [employer] 1 Each 025 Active insulin glargine (LANTUS SOLOSTAR U-100 INSULIN) 100 unit/mL (3 mL) penIndications:T ype 2 diabetes mellitus without complication, with long-term current use of insulin ([facility]) INJECT 50 UNITS INTO THE SKIN 2 (TWO) TIMES DAILY 90 mL 3 025 Active alcohol swabs (ALCOHOL PREP PADS)Indications :Type 2 diabetes mellitus without complication, with long-term current use of insulin (HCC-CMS) USE DAILY E11.9 100 Each 11 025 Active blood sugar diagnostic (FREESTYLE LITE STRIPS) stripsIndication s:Type 2 diabetes mellitus without complication, with long-term current use of insulin ([facility]) USE TWICE A DAY 100 Each 11 025 Active blood sugar diagnostic stripsIndication s:Type 2 diabetes mellitus without complication, with long-term current use of insulin ([facility]) 1 Each 2 (two) times daily Freestyle lite strips use bid, dx E11.9 100 Each 11 024 2024 Discontinued Active Problems Problem Noted Date Diagnosed Date Chronic cough 10/02/2023 Mixed incontinence 10/02/2023 Peripheral neuropathic pain 06/21/2021 Mild intermittent asthma without complication ([facility]) 09/22/2020 History of 2019 novel ferguson virus disease (COVID-19) 06/201901/31/2020 Dietary B12 deficiency 10/03/2019 Primary osteoarthritis involving multiple joints 01/19/2017 Glaucoma, Dr. Solorio 07/24/2015 Degenerative lumbar disc, MRI 06/15/2015 016 Overview (03/11/2019): Result type: MRI Lumbar Spine W/O Contrast Result date: June 15, 2015 12:11 EST Result status: Modified Result title: MRI Lumbar Spine W/O Contrast Performed by: Not on Staff , GIRISH MARIN on June 15, 2015 13:43 EST Verified by: Not on Staff , GIRISH MARIN on June 15, 2015 13:43 EST Encounter info: [id number], [facility], 06/15/2015 - 06/22/2015 * Final Report * Reason For Exam lower back pain;lower back pain RESULT: MRI Lumbar Spine W/O Contrast [facility] VISIT NUMBER :[id number] Patient Name : Teri Melendez Date of : 1955 Date of Exam : 06/15/2015 Referring Physician : GRISELDA GREER [address] [place] [address] Exam : MR - LUMBAR SPINE (C-) CPT 59728 - Room Description : [facility] Espr 1.5 Technique : Sag T1, Sag3d SPACE, Sag STIR, Sag T2 reformat, Ax T2 reformat, Sag T2 Final Report Indication: Low back pain. Comparison: None. Findings: Vertebral bodies are normal in height and sagittal alignment. Small endplate osteophytes and subtle degenerative endplate marrow signal changes as well as small Schmorl's nodes are present at several levels. Diffuse disc desiccation and mild loss of intervertebral disc height relatively spares the L5-S1 level. The visualized distal spinal cord and conus medullaris are normal. The conus medullaris terminates L1. The paraspinal and prevertebral soft tissues are normal. L1-L2: No spinal canal or neural foraminal stenosis. L2-L3: Minimal diffuse disc bulge. No spinal canal stenosis. Minimal left and no right neural foraminal narrowing. L3-L4: Diffuse disc bulge. Mild facet degenerative changes. No significant spinal canal stenosis. There is minimal bilateral neural foraminal narrowing. L4-L5: Diffuse disc bulge eccentric to the right with facet degenerative change. There is mild narrowing of the spinal canal and right lateral recess. The traversing right L5 nerve root is crowded but not definitely impinged. There is mild left and mild to moderate right neural foraminal narrowing. L5-S1: Minimal disc bulge. Subtle degenerative changes. No spinal canal or neural foraminal stenosis. Impression: Multilevel degenerative changes are most advanced at the L4-L5 level. Details above. 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17 01/08/2014 Diabetic neuropathy ([facility]) 07/10/2013 Type 2 diabetes mellitus wit hout complication, with long-term current use of insulin ([facility]) 11/06/2012 Overview (11/06/2012): hga1c 07/25/2012 13.8 Essential hypertension, benign 11/06/2012 Mild vitamin D deficiency 11/06/2012 Anxiety 11/06/2012 Hypothyroidism (acquired) 11/06/2012 Hyperlipidemia with target LDL less than 70 10/16 Non morbid obesity 11/06/2012 Carpal tunnel syndrome of ri ght wrist EMG 03/2008, mod-severe on EMG 06/201511/06/2012 Iron deficiency anemia 11/06/2012 Postherpetic neuralgia 04/20/2010 S/P endoscopy 01/15/2010 Overview (11/06/2012): Gastric polyp, benign H/O colonoscopy with polypectomy 01/15/2010 Overview (11/06/2012): Repeat 5 years Resolved Problems Problem Noted Date Diagnosed Date Resolved Date COVID-19 06/2019 [facility] 08/12/2019 021 Overview (08/12/2019): COVID-19 Tracking [reviewed or updated 08/12/2019] ?? Exposure to confirmed case or travel risk - no ?? Date that symptoms began - 07/16/19 ?? Patient risk factors for severe COVID-19: Diabetes ?? 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 COVID-19 Tested? - Yes - Date Tested 07/16/19 Testing Location - [facility] - Testing Results - Positive ? Is patient ? No Encounters Date Type Department Care Team Description 06/24/2024 Interim Notes [address] [address] Senia Irene LEA 05/31/2024 Telemedicine Visit [address] [phone] Griselda Greer PA-C Acute URI (Primary Dx) 05/21/2024 10:40 AM EST Office Visit [address] [phone] Griselda Greer PA-C Functional constipation (Primary Dx); Colon cancer screening; Essential hypertension, benign; Hyperlipidemia with target LDL less than 70; Non morbid obesity; Type 2 diabetes mellitus without complication, with long-term current use of insulin ([facility]); Facial paresthesia; RUQ abdominal pain; Mixed incontinence; Malaise and fatigue; Sleep apnea, unspecified type; Snoring; Lower urinary tract symptoms (LUTS); ONEIL (obstructive sleep apnea) from Last 3 Months Social History Tobacco Use Types Packs/Day Years Used Date Smoking Tobacco: Never Smokeless Tobacco: Never Tobacco Cessation:Counseling Given: Not Answered Alcohol Use Standard Drinks/Week Comments No 0 (1 standard drink = 0.6 oz pur e alcohol) Social Connections Answer Date Recorded Connectedness 1 05/21/2024 Financial Resource Strain Answer Date R ecorded Financial Resource Strain 1 2024 Stress Answer Date Recorded Stress 1 05/21/2024 Physical Activity Answer Date Recorded Physical Activity 0 12/08/2018 Food Insecurity Answer Date Recorded Food 1 05/21/2024 Transportation Needs Answer Date Record ed Transportation 1 05/21/2024 Housing Stability Answer Date Recorded Housing 1 05/21/2024 Safety and Environment Answer Date Doc rded Safety 1 05/29/2023 Utilities Answer Date Recorded Utilities 1 05/21/2024 Employment Answer Date Recorded Stress 0 07/05/2021 Comments No Sex and Gender Information Value Date Recorded Sex Assigned at Female 03/02/2017 4:44 PM PST Legal Sex Female 11:36 AM PDT Gender Identity Female 03/02/2017 4:44 PM PST Sexual Orientation Straight 03/02/2017 4: 44 PM PST Last Filed Vital Signs Vital Sign Reading Time Taken Comments Blood Pressure 138/74 05/21/2024 10:35 AM EST Pulse 87 05/21/2024 10:35 AM EST Temperature 37.2 ??C (99 ??F) 05/21/2024 10:35 AM EST Respiratory Rate 16 05/21/2024 10:35 AM EST Oxygen Saturation 95% 05/21/2024 10:35 AM EST Inhaled Oxygen Concentration - - Weight 91.2 kg (201 lb) 05/21/2024 10:35 AM EST Height 157 cm (5' 1.81 ) 05/21/2024 10:35 AM EST Body Mass Index 36.99 05/21/2024 10:35 AM EST Plan of Treatment Upcoming Encounters Date Type Department Care Team (Late st Contact Info) Description 08/12/2024 9:40 AM EDT Telemedicine Visit [facility] [address] [place] [address] Griselda Greer PA-C [address] [place] [address] Health Maintenance Due Date Last Done Comments HPV Screening 1955 CT Colonography 07/19/1999 Colonoscopy 07/19/1999 Fecal DNA 07/19/1999 Flexible Sigmoidoscopy 07/19/1999 Imm-Zoster, Recombinant (1 of 2) 2004 Breast Cancer Screening (Mammogram) 03/29/2015 03/29/2013 (Declined) Colorectal Cancer Screening 05/30/2015 FIT/gFOBT 05/30/2015 05/30/2014 (Decl ined), 03/29/2013 (Declined) Pap Smear 03/29/2016 03/29/2013 (Declined) Bone Density Screening 07/19/2019 Falls Prevention 03/20/2024 03/20/2023 Dental Examination 03/22/2024 03/20/2023 (M anaged by Outside Provider), 04/02/2021 (Managed by Outside Provider), 12/26/2019 (Managed by Outside Provider) Diabetes HbA1c 08/18/2024 05/21/2024, 05, 02/22/2023, Additional history exists [id number] ( season) 2024 Postponed from 12/17/2023 (Patient postponement) Medicare Annual Wellness Visit 08/24/2024 08/25/2023, 03/02/2022, 05/30/2014 Urine Albumin Creatinine Ratio Screening 08/24/2024 08/25/2023, 02/22/2023, 05/08/2020, Additional history exists Diabetes Foot Exam 05/21/2025 05/21/2024, 0 05/26/2022, 03/03/2022, Additional history exists Lipid Screening 05/21/2025 05/21/2024, 08/15, 08/25/2023, Additional history exists Serum Creatinine 05/21/2025 05/21/2024, 01/2024, 02/22/2023, Additional history exists TSH Monitoring 05/21/2025 05/21/2024, 08/15, 02/22/2023, Additional history exists Tobacco Screening 05/21/2025 05/21/2024 Imm-Influenza Discontinued 05/30/2014 (Decl ined), 03/29/2013 (Declined) Hepatitis C Screening Completed 05/24/2018 Retinopathy Screening Discontinued 06/26/2023 , 02/08/2022, 05/30/2014 (Declined), Additional history exists Alcohol and Drug Screen Completed 05/21/19 25, 05/29/2023, 10/10/2022, Additional history exists Depression Annual Screen Completed 025, 11/07/2014, 01/08/2014 (Declined) Cervical Ablation/Cold-Knife Conization Discontinued Cervical Cancer Screening Discontinued Cervical Cryotherapy Discontinued Colposcopy Discontinued Endometrial Biopsy Discontinued Excision/Leep Discontinued HPV Genotyping Discontinued Imm-DTaP/Tdap/Td Discontinued Imm-Pneumococcal 65+ Discontinued Pap + HPV Discontinued Vaginal Pap Discontinued Vulvoscopy Discontinued Procedures Procedure Name Priority Date/Time Associated Diagnosis Comments REFERRAL SCANNED DOCUMENT 07/23/2024 3:00 AM EDT OTHER ORDERS SCANNED DOCUMENT 06/20/2024 3:00 AM EST US ABDOMEN RUQ LTD Routine 06/12/2024 3: 00 AM EST RUQ abdominal pain US CAROTID DUPLEX BILAT Routine 06/12/2024 3:00 AM EST Facial paresthesia POLYSOMNOGRAPHY, 4 OR MORE Routine 06/11/2024 3:00 AM EST Sleep apnea, unspecified type Snoring OTHER ORDERS SCANNED DOCUMENT 05/23/2024 3:00 AM EST RFLX - REFLEXIVE URINE CULTURE Routine 05/21/2024 12:42 PM EST URINALYSIS, COMPLETE W/REFLEX TO CULTURE Routine 05/21/2024 12:42 PM EST Functional constipation Colon cancer screening Essential hypertension, benign Hyperlipidemia with target LDL less than 70 Non morbid obesity Type 2 diabetes mellitus without complication, with long-term current use of insulin (HCC-CMS) Facial paresthesia RUQ abdominal pain Mixed incontinence Malaise and fatigue Sleep apnea, unspecified type Snoring Lower urinary tract symptoms (LUTS) ASSAY OF FREE THYROXINE Routine 05/21/2024 11:09 AM EST RPR (DIAGNOSIS) WITH REFLEX TO TITER AND CONFIRMATORY TESTING Routine 05/21/2024 11:09 AM EST Functional constipation Colon cancer screening Essential hypertension, benign Hyperlipidemia with target LDL less than 70 Non morbid obesity Type 2 diabetes mellitus without complication, with long-term current use of insulin ([facility]) Facial paresthesia RUQ abdominal pain Mixed incontinence Malaise and fatigue Sleep apnea, unspecified type Snoring Lower urinary tract symptoms (LUTS) LYME DISEASE, IGG/IGM AB, WESTERN BLOT Routine 05/21/2024 11:09 AM EST Functional constipation Colon cancer screening Essential hypertension, benign Hyperlipidemia with target LDL less than 70 Non morbid obesity Type 2 diabetes mellitus without complication, with long-term current use of insulin ([facility]) Facial paresthesia RUQ abdominal pain Mixed incontinence Malaise and fatigue Sleep apnea, unspecified type Snoring Lower urinary tract symptoms (LUTS) ASSAY OF MAGNESIUM Routine 05/21/2024 11 :09 AM EST Functional constipation Colon cancer screening Essential hypertension, benign Hyperlipidemia with target LDL less than 70 Non morbid obesity Type 2 diabetes mellitus without complication, with long-term current use of insulin (HCC-CMS) Facial paresthesia RUQ abdominal pain Mixed incontinence Malaise and fatigue Sleep apnea, unspecified type Snoring Lower urinary tract symptoms (LUTS) VITAMIN B12 & FOLATE Routine 05/21/2024 11:09 AM EST Functional constipation Colon cancer screening Essential hypertension, benign Hyperlipidemia with target LDL less than 70 Non morbid obesity Type 2 diabetes mellitus without complication, with long-term current use of insulin (HCC-CMS) Facial paresthesia RUQ abdominal pain Mixed incontinence Malaise and fatigue Sleep apnea, unspecified type Snoring Lower urinary tract symptoms (LUTS) BLOOD COUNT COMPLETE AUTO&AUTO DIFRNTL WBC Routine 05/21/2024 11:09 AM EST Functional constipation Colon cancer screening Essential hypertension, benign Hyperlipidemia with target LDL less than 70 Non morbid obesity Type 2 diabetes mellitus without complication, with long-term current use of insulin (HCC-CMS) Facial paresthesia RUQ abdominal pain Mixed incontinence Malaise and fatigue Sleep apnea, unspecified type Snoring Lower urinary tract symptoms (LUTS) COMPREHENSIVE METABOLIC PANEL Routine 05/21/2024 11:09 AM EST Functional constipation Colon cancer screening Essential hypertension, benign Hyperlipidemia with target LDL less than 70 Non morbid obesity Type 2 diabetes mellitus without complication, with long-term current use of insulin (HCC-CMS) Facial paresthesia RUQ abdominal pain Mixed incontinence Malaise and fatigue Sleep apnea, unspecified type Snoring Lower urinary tract symptoms (LUTS) LIPID PANEL Routine 05/21/2024 11:09 AM EST Functional constipation Colon cancer screening Essential hypertension, benign Hyperlipidemia with target LDL less than 70 Non morbid obesity Type 2 diabetes mellitus without complication, with long-term current use of insulin ([facility]) Facial paresthesia RUQ abdominal pain Mixed incontinence Malaise and fatigue Sleep apnea, unspecified type Snoring Lower urinary tract symptoms (LUTS) TSH W/RFLX FREE T4 Routine 05/21/2024 11 :09 AM EST Functional constipation Colon cancer screening Essential hypertension, benign Hyperlipidemia with target LDL less than 70 Non morbid obesity Type 2 diabetes mellitus without complication, with long-term current use of insulin (HCC-CMS) Facial paresthesia RUQ abdominal pain Mixed incontinence Malaise and fatigue Sleep apnea, unspecified type Snoring Lower urinary tract symptoms (LUTS) HEMOGLOBIN GLYCOSYLATED A1C Routine 05/21/2024 11:09 AM EST Functional constipation Colon cancer screening Essential hypertension, benign Hyperlipidemia with target LDL less than 70 Non morbid obesity Type 2 diabetes mellitus without complication, with long-term current use of insulin ([facility]) Facial paresthesia RUQ abdominal pain Mixed incontinence Malaise and fatigue Sleep apnea, unspecified type Snoring Lower urinary tract symptoms (LUTS) HEALTH HISTORY SCANNED DOCUMENT 05/21/2024 3:00 AM EST MICROALBUMIN/CREATINI NE RATIO, URINE, RANDOM Routine 08/25/2023 10:40 AM EDT Type 2 diabetes mellitus without complication, with long-term current use of insulin ([facility]) Degenerative lumbar disc, MRI 06/15/2015 Lower urinary tract symptoms (LUTS) EYE EXAM 06/26/2023 3:00 AM EDT HEPATITIS A,B,C PANEL Routine 05/24/2018 10:43 AM EST Uncontrolled type 2 diabetes mellitus with hyperglycemia ([facility]) from Last 3 Months or Most Recently Relevant to Health Maintenance Results * REFERRAL SCANNED DOCUMENT (07/23/2024 3:00 AM EDT) 07/23/2024 3:00 AM EDT [facility] Provider Default SCAN REFERRAL Final Resu lt * OTHER ORDERS SCANNED DOCUMENT (06/20/2024 3:00 AM EST) Only the most recent of2 resultswithin the time period is included. 06/20/2024 3:00 AM EST us Griselda Greer PA-C SCAN OTHER ORDERS Final Resu lt * US CAROTID DUPLEX BILAT (06/12/2024 3:00 AM EST) 06/12/2024 3:00 AM EST us Griselda Greer PA-C IMG ULTRASOUND Final Result [facility] Corporate Office [address] [place] [address], [place] [phone] * US ABDOMEN RUQ LTD (06/12/2024 3:00 AM EST) 06/12/2024 3:00 AM EST Griselda Greer PA-C IMG ULTRASOUND Edited Resul t - Final [facility] Corporate Office [address] [place] [address], [place] [phone] * POLYSOMNOGRAPHY, 4 OR MORE (06/11/2024 3:00 AM EST) 06/11/2024 3:00 AM EST Griselda HERNANDEZG OTHER IMAGING Final Resu lt * URINALYSIS, COMPLETE W/REFLEX TO CULTURE (05/21/2024 12:42 PM EST) COLOR YELLOW YELLOW [employer] [facility] APPEARANCE CLEAR CLEAR [facility] SPECIFIC GRAVITY 1.016 1.001 - 1.035 [employer] [facility] URINE PH 6.0 5.0 - 8.0 [employer] [facility] GLUCOSE NEGATIVE NEGATIVE [employer] [facility] BILIRUBIN NEGATIVE NEGATIVE [facility] KETONES NEGATIVE NEGATIVE [facility] OCCULT BLOOD NEGATIVE NEGATIVE [employer] [facility] URINE PROTEIN NEGATIVE NEGATIVE [employer] [facility] NITRITE NEGATIVE NEGATIVE [employer] [facility] LEUKOCYTE ESTERASE NEGATIVE NEGATIVE [employer] [facility] URINE LEUKOCYTES NONE SEEN < OR = 5 [facility] RBC NONE SEEN < OR = 2 [employer] [facility] SQUAMOUS EPITHELIAL CELLS NONE SEEN < OR = 5 [facility] BACTERIA NONE SEEN NONE SEEN [employer] [facility] HYALINE CAST NONE SEEN NONE SEEN [employer] [facility] SEE NOTE See Below [employer] [facility] Comment: This urine was analyzed for the presence of WBC, RBC, bacteria, casts, and other formed elements. Only those elements seen were reported. Urine Urine specimen / Unknown 05/21/2024 12:42 PM EST 05/21/2024 12:44 PM EST Narrative [facility] - 05/22/2024 3:51 AM EST SPLIT 05/21/2024 FROM [id number] [employer] Griselda MURPHY-C LAB - NO BLOOD DRAW Final Re sult Performing Organization Address [facility]/ZIP Co de Phone Number [facility] [address] [address], [employer] [address] [address] * RFLX - REFLEXIVE URINE CULTURE (05/21/2024 12:42 PM EST) REFLEXIVE URINE CULTURE See Below [employer] [facility] Comment:NO CULTURE INDICATED 05/21/2024 12:4 2 PM EST 05/21/2024 12:44 PM EST Narrative [facility] - 05/22/2024 3:51 AM EST SPLIT 05/21/2024 FROM [id number] [employer] Griselda MURPHY-C LAB - NO BLOOD DRAW Final Re sult Performing Organization Address [facility] Co de Phone Number [facility] [address] [address], [employer] [address] [address] * RPR (DIAGNOSIS) WITH REFLEX TO TITER AND CONFIRMATORY TESTING (05/21/2024 11:09 AM EST) RPR (DX) W/REFL TITER AND CONFIRMATORY TESTING NON-REACT SHANNON NON-REACT SHANNON [facility] Comment: No laboratory evidence of syphilis. If recent exposure is suspected, submit a new sample in 2-4 weeks. Serum Blood / Unknown 05/21/2024 1 1:09 AM EST 05/21/2024 11:10 AM EST Narrative [employer] [facility] - 05/23/2024 12:02 PM EST FASTING:NO PATIENT UNABLE TO VOID; ADVISED TO RETURN FOR COLLECTION. [employer] Griselda MURPHY-C LAB - BLOOD DRAW Edited Resu lt - Final Performing Organization Address [facility]/ZIP Co de Phone Number [facility] [address] [address], [employer] [address] [address] * (ABNORMAL) TSH W/RFLX FREE T4 (05/21/2024 11:09 AM EST) TSH W/REFLEX TO FT4 5.42(H) 0.40 - 4.50 mIU/L [facility] Blood Blood / Unknown 05/21/2024 1 1:09 AM EST 05/21/2024 11:10 AM EST Narrative [facility] - 05/23/2024 12:02 PM EST FASTING:NO PATIENT UNABLE TO VOID; ADVISED TO RETURN FOR COLLECTION. Griselda Greer PA-C LAB - BLOOD DRAW Edited Resu lt - Final Performing Organization Address [facility] de Phone Number [facility] [address] [address], [employer] [address] [address] * (ABNORMAL) LYME DISEASE, IGG/IGM AB, WESTERN BLOT (05/21/2024 11:09 AM EST) Pathologist [facility] LYME DISEASE AB (IGG) WB NEGATIVE NEGATIVE [facility] 18 KD (IGG) BAND NON-REACTIVE [facility] 23 KD (IGG) BAND NON-REACTIVE [facility] 28 KD (IGG) BAND NON-REACTIVE [facility] 30 KD (IGG) BAND NON-REACTIVE [facility] 39 KD (IGG) BAND NON-REACTIVE [facility] 41 KD (IGG) BAND REACTIVE(A) [facility] 45 KD (IGG) BAND NON-REACTIVE [facility] 58 KD (IGG) BAND NON-REACTIVE [facility] 66 KD (IGG) BAND NON-REACTIVE [facility] 93 KD (IGG) BAND NON-REACTIVE [facility] LYME DISEASE AB (IGM) WB NEGATIVE NEGATIVE [facility] 23 KD (IGM) BAND NON-REACTIVE [facility] 39 KD (IGM) BAND NON-REACTIVE [facility] 41 KD (IGM) BAND NON-REACTIVE [facility] COMMENT [facility] Blood Blood / Unknown 05/21/2024 1 1:09 AM EST 05/21/2024 11:10 AM EST Narrative [facility] - 05/23/2024 12:02 PM EST FASTING:NO PATIENT UNABLE TO VOID; ADVISED TO RETURN FOR COLLECTION. Lyme immunoblot testing should only be performed on samples from patients who have had a Positive or Equivocal result in a screening assay. ?? As per CDC criteria, a Lyme disease IgG Immunoblot must show reactivity to at least 5 of 10 specific borrelial proteins to be considered positive; similarly, a positive Lyme disease IgM immunoblot requires reactivity to 2 of 3 specific borrelial proteins. Although considered negative, IgG reactivity to fewer specific borrelial proteins or IgM reactivity to only 1 protein may indicate recent B. burgdorferi infection and warrant testing of a later sample. A positive IgM but negative IgG result obtained more than a month after onset of symptoms likely represents a false- positive IgM result rather than acute Lyme disease. In rare instances, Lyme disease immunoblot reactivity may represent antibodies induced by exposure to other spirochetes. Griselda Greer PA-C LAB - BLOOD DRAW Final Resul t [facility] [address] [address], [facility] [address] [place] [phone] * VITAMIN B12 & FOLATE (05/21/2024 11:09 AM EST) [facility] Signature VITAMIN B12 570 200 - 1,100 pg/mL [facility] FOLATE, SERUM 17.8 5.5 ng/mL [facility] Comment: ? Reference Range ? Low: ? <3.4 ? Borderline: ?3.4-5.4 ? Normal: ?>5.4 Blood Blood / Unknown 05/21/2024 1 1:09 AM EST 05/21/2024 11:10 AM EST Narrative [facility] - 05/23/2024 12:02 PM EST FASTING:NO PATIENT UNABLE TO VOID; ADVISED TO RETURN FOR COLLECTION. us Griselda Greer PA-C LAB - BLOOD DRAW Edited Resu lt - Final [facility] [address] [address], [employer] [facility] [address] [place] [address] * (ABNORMAL) BLOOD COUNT COMPLETE AUTO&AUTO DIFRNTL WBC (05/21/2024 11:09 AM EST) WHITE BLOOD CELL COUNT 6.5 3.8 - 10.8 Thousand/ uL [facility] RED BLOOD CELL COUNT 4.93 3.80 - 5.10 Million/u L [facility] HEMOGLOBIN 12.7 11.7 - 15.5 g/dL [facility] HEMATOCRIT 40.1 35.0 - 45.0 % [facility] MCV 81.3 80.0 - 100.0 fL [facility] MCH 25.8(L) 27.0 - 33.0 pg [facility] MCHC 31.7(L) 32.0 - 36.0 g/dL [facility] Comment: For adults, a slight decrease in the calculated MCHC value (in the range of 30 to 32 g/dL) is most likely not clinically significant; however, it should be interpreted with caution in correlation with other red cell parameters and the patient's clinical condition. RDW 14.0 11.0 - 15.0 % [facility] PLATELET COUNT 214 140 - 400 Thousand/ uL [facility] MPV 12.2 7.5 - 12.5 fL [facility] ABSOLUTE NEUTROPHILS 3,900 1,500 - 7,800 cells/uL [facility] ABSOLUTE LYMPHOCYTES 1,976 850 - 3,900 cells/uL [facility] ABSOLUTE MONOCYTES 416 200 - 950 cells/uL [facility] ABSOLUTE EOSINOPHILS 137 15 - 500 cells/uL [facility] ABSOLUTE BASOPHILS 72 0 - 200 cells/uL [facility] NEUTROPHILS PCT 60 % [facility] LYMPHOCYTES 30.4 % [facility] MONOCYTES 6.4 % [facility] EOSINOPHILS 2.1 % [facility] BASOPHILS 1.1 % [facility] Blood Blood / Unknown 05/21/2024 1 1:09 AM EST 05/21/2024 11:10 AM EST Narrative [employer] [facility] - 05/23/2024 12:02 PM EST FASTING:NO PATIENT UNABLE TO VOID; ADVISED TO RETURN FOR COLLECTION. us Griselda Greer PA-C LAB - BLOOD DRAW Edited Resu lt - Final Performing Organization Address City/[facility]/ZIP Co de Phone Number [facility] [address] [address], [employer] [address] [address] * ASSAY OF FREE THYROXINE (05/21/2024 11:09 AM EST) T-4, FREE 1.0 0.8 - 1.8 ng/dL [facility] 05/21/2024 11:0 9 AM EST 05/21/2024 11:10 AM EST Narrative [facility] [facility] - 05/23/2024 12:02 PM EST FASTING:NO PATIENT UNABLE TO VOID; ADVISED TO RETURN FOR COLLECTION. us Griselda Greer PA-C LAB - BLOOD DRAW Edited Resu lt - Final Performing Organization Address City/[facility]/ZIP Co de Phone Number [facility] [address] [address], [employer] [address] [address] * ASSAY OF MAGNESIUM (05/21/2024 11:09 AM EST) MAGNESIUM 1.9 1.5 - 2.5 mg/dL [facility] Blood Blood / Unknown 05/21/2024 1 1:09 AM EST 05/21/2024 11:10 AM EST Narrative [facility] [employer] - 05/23/2024 12:02 PM EST FASTING:NO PATIENT UNABLE TO VOID; ADVISED TO RETURN FOR COLLECTION. Griselda Greer PA-C LAB - BLOOD DRAW Edited [facility] Performing Organization Address [facility] Co de Phone Number [facility] [address] [address], [facility] [address] [address] * (ABNORMAL) HEMOGLOBIN GLYCOSYLATED A1C (05/21/2024 11:09 AM EST) HEMOGLOBIN A1C 10.8(H) <5.7 % of total Hgb [facility] Comment: For someone without known diabetes, a hemoglobin A1c value of 6.5% or greater indicates that they may have diabetes and this should be confirmed with a follow-up test. For someone with known diabetes, a value <7% indicates that their diabetes is well controlled and a value greater than or equal to 7% indicates suboptimal control. A1c targets should be individualized based on duration of diabetes, age, comorbid conditions, and other considerations. Currently, no consensus exists regarding use of hemoglobin A1c for diagnosis of diabetes for children. ?? Blood Blood / Unknown 05/21/2024 1 1:09 AM EST 05/21/2024 11:10 AM EST Narrative [facility] [employer] - 05/23/2024 12:02 PM EST FASTING:NO PATIENT UNABLE TO VOID; ADVISED TO RETURN FOR COLLECTION. us Griselda Greer PA-C LAB - BLOOD DRAW Edited Count includes the [facility] Performing Organization Address City/[facility]/ZIP Co de Phone Number [facility] [address] [address], [facility] [address] [address] * (ABNORMAL) LIPID PANEL (05/21/2024 11:09 AM EST) CHOLESTEROL, TOTAL 232(H) <200 mg/dL [facility] HDL CHOLESTEROL 43(L) > OR = 50 mg/dL [facility] TRIGLYCERIDES 155(H) <150 mg/dL [facility] LDL-CHOLESTEROL 160(H) 99 mg/dL (calc) [facility] Comment: Reference range: <100 Desirable range <100 mg/dL for primary prevention; ?? <70 mg/dL for patients with CHD or diabetic patients with > or = 2 CHD risk factors. LDL-C is now calculated using the Augustus calculation, which is a validated novel method providing better accuracy than the Friedewald equation in the estimation of LDL-C. Tony SS et al. FAITH. 2013;310(64): 2669-7074 (http://education.[employer]/faq/RNV420) CHOL/HDLC RATIO 5.4(H) <5.0 (calc) [facility] NON-HDL CHOLESTEROL 189(H) <130 mg/dL (calc) [facility] Comment: For patients with diabetes plus 1 major ASCVD risk factor, treating to a non-HDL-C goal of <100 mg/dL (LDL-C of <70 mg/dL) is considered a therapeutic option. Blood Blood / Unknown 05/21/2024 1 1:09 AM EST 05/21/2024 11:10 AM EST Narrative [facility] - 05/23/2024 12:02 PM EST FASTING:NO PATIENT UNABLE TO VOID; ADVISED TO RETURN FOR COLLECTION. us Griselda Greer PA-C LAB - BLOOD DRAW Final Resul t [facility] [address] [place] [address], [facility] [address] [place] [phone] * (ABNORMAL) COMPREHENSIVE METABOLIC PANEL (05/21/2024 11:09 AM EST) GLUCOSE 180(H) 65 - 139 mg/dL [facility] Comment: ?Non-fasting reference interval UREA NITROGEN (BUN) 11 7 - 25 mg/dL [facility] CREATININE (blood) 0.60 0.50 - 1.05 mg/dL [facility] EGFR 97 > OR = 60 mL/min/1. 73m2 [facility] BUN/CREATININE RATIO SEE NOTE: [facility] Comment: ?? Not Reported: BUN and Creatinine are within ?? reference range. ? SODIUM 138 135 - 146 mmol/L [facility] POTASSIUM 4.0 3.5 - 5.3 mmol/L [facility] CHLORIDE 103 98 - 110 mmol/L [facility] CARBON DIOXIDE 31 20 - 32 mmol/L [facility] CALCIUM 9.1 8.6 - 10.4 mg/dL [employer] [facility] PROTEIN, TOTAL 6.8 6.1 - 8.1 g/dL [facility] ALBUMIN 4.2 3.6 - 5.1 g/dL [facility] GLOBULIN 2.6 1.9 - 3.7 g/dL (calc) [facility] ALBUMIN/GLOBULI N RATIO 1.6 1.0 - 2.5 (calc) [facility] BILIRUBIN, TOTAL 0.5 0.2 - 1.2 mg/dL [facility] ALKALINE PHOSPHATASE 87 37 - 153 U/L [facility] AST 20 10 - 35 U/L [facility] ALT 17 6 - 29 U/L [facility] Blood Blood / Unknown 05/21/2024 1 1:09 AM EST 05/21/2024 11:10 AM EST Narrative [facility] [facility] - 05/23/2024 12:02 PM EST FASTING:NO PATIENT UNABLE TO VOID; ADVISED TO RETURN FOR COLLECTION. Griselda Greer PA-C LAB - BLOOD DRAW Edited Resu lt - Final [employer] [address] [address], [employer] [address] [address] * HEALTH HISTORY SCANNED DOCUMENT (05/21/2024 3:00 AM EST) 05/21/2024 3:00 AM EST us Griselda Greer PA-C SCAN OTHER ORDERS Final Resu lt * MICROALBUMIN/CREATININE RATIO, URINE, RANDOM (08/25/2023 10:40 AM EDT) CREATININE, RANDOM URINE 71 20 - 275 mg/dL [facility] MICROALBUMIN 1.2 mg/dL [facility] [employer] [facility] Comment: Reference Range Not established MICROALBUMIN/CREA TININE RATIO, RANDOM URINE 17 <30 mg/g creat [facility] Comment: The ADA defines abnormalities in albumin excretion as follows: Albuminuria Category ?Result (mg/g creatinine) Normal to Mildly increased ?? <30 Moderately increased ? 30-299 Severely increased ? > OR = 300 The ADA recommends that at least two of three specimens collected within a 3-6 month period be abnormal before considering a patient to be within a diagnostic category. Urine Urine specimen / Unknown 08/25/2023 10:40 AM EDT 08/25/2023 10:42 AM EDT Narrative [facility] - 08/26/2023 8:43 PM EDT FASTING:YES Griselda Greer PA-C LAB - NO BLOOD DRAW Final Re sult [facility] [employer] [address] [place] [address], [facility] [address] [address] * EYE EXAM (06/26/2023 3:00 AM EDT) 06/26/2023 3:00 AM EDT Griselda Greer PA-C OTHER Edited Resul t - Final * (ABNORMAL) HEPATITIS A,B,C PANEL (05/24/2018 10:43 AM EST) Pathologist [facility] HEPATITIS B SURFACE ANTIBODY POSITIVE(A) NEGATIVE [facility] HEPATITIS B SURFACE ANTIGEN NEGATIVE NEGATIVE [facility] Comment: Over the counter supplements containing high doses of biotin may interfere with this assay. ??If interference is suspected, patients shoud be retested after refraining from biotin supplements for 72 hours. HEPATITIS C VIRUS DIAGNOSTIC NEGATIVE NEGATIVE [facility] HEPATITIS B CORE ANTIBODY POSITIVE(A) NEGATIVE [facility] HEPATITIS A ANTIBODY TOTAL POSITIVE(A) NEGATIVE [facility] Comment: Over the counter supplements containing high doses of biotin may interfere with this assay. ??If interference is suspected, patients shoud be retested after refraining from biotin supplements for 72 hours. Blood specimen (specimen) Blood / Unknown 05/24/2018 10:43 AM EST 05/24/2018 10:56 AM EST N[facility]ative [facility] - 05/24/2018 12:41 PM EST [employer], a member of [address] [address] Machine Tester - Jaelyn Ferguson MD PT ID [id number] ORD# [id number] Griselda Greer PA-C LAB - BLOOD DRAW Edited Resu lt - Final [id number] [address], from Last 3 Months or Most Recently Relevant to Health Maintenance Insurance [facility] Member Subscriber Plan / Payer (Ef fective 2020-Present) Name:Teri Melendez Relation to Subscriber:Self Name:Teri Melendez Payer ID:[id number] Group ID:Not on file Type:Indemnity Address: [place] [address] [address] [address] Care Teams Unitizer Relationship Specialty Start Date End Date Griselda Greer PA-C [address] [place] [address] PCP - General 10/29/12
--- OUTSIDE RECORDS SUMMARY | 2024-08-08 10:48 | XMS_ITS | Clinical Summary ---
Author Organization [facility] Address [address] [place] [address] Care Team Providers Care Estate Manager Name Role Phone Unavailable Primary Care Provider Unavailabl e Social History Tobacco Use Types Packs/Day Years Used Date Smoking Tobacco: Never Assessed Comments Unknown Sex and Gender Information Value Date Recorded Sex Assigned at Not on file Legal Sex Female 6:43 PM EST Gender Identity Not on file Sexual [...]
== END 2024-08-08 10:44 | disposition home or self-care (01) ==
LOC: HO.PMC 09:42
PROVIDERS: PCP Physician Assistant; Visit Provider Nurse Practitioner Family
DX: E11.40 Type 2 diabetes mellitus with diabetic neuropathy, unspecified (principal); M54.12 Radiculopathy, cervical region; M48.02 Spinal stenosis, cervical region; M50.30 Other cervical disc degeneration, unspecified cervical region; M48.062 Spinal stenosis, lumbar region with neurogenic claudication; M51.369 Other intervertebral disc degeneration, lumbar region without mention of lumbar back pain or lower extremity pain; M47.816 Spondylosis without myelopathy or radiculopathy, lumbar region; R51.9 Headache, unspecified
CPT/HCPCS: 17999; 99215

== ENCOUNTER → 2024-08-08 09:42 | Outpatient (BNVA) | payer OTHER, SELFPAY | PROVIDERS: PCP Physician Assistant; Visit Provider Nurse Practitioner Family | DX: M54.12 Radiculopathy, cervical region (principal); M48.02 Spinal stenosis, cervical region; M50.30 Other cervical disc degeneration, unspecified cervical region; M48.062 Spinal stenosis, lumbar region with neurogenic claudication; M51.369 Other intervertebral disc degeneration, lumbar region without mention of lumbar back pain or lower extremity pain; M47.816 Spondylosis without myelopathy or radiculopathy, lumbar region; E11.40 Type 2 diabetes mellitus with diabetic neuropathy, unspecified; R51.9 Headache, unspecified | CPT/HCPCS: 17999; 99212; J7336 ==

== ENCOUNTER 2025-01-06 10:00 | Outpatient (REF) | payer OTHER, SELFPAY ==
--- NOTE | ~2025-01-06 | XR_ITS ---
Exam: XR FOOT 3 OR MORE VIEWS BILATERAL, bilateral foot x-rays TECHNIQUE: X-ray lower extremity, bilateral feet INDICATION: Foot pain COMPARISON: None available. FINDINGS: RIGHT FOOT: There are mild degenerative changes with mild joint space narrowing and small marginal osteophytes involving the IP joints of the toes and first and fifth MTP joints. There are small calcaneal enthesophytes at the plantar fascia and Achilles tendon attachment. LEFT FOOT: There is lucency through the heads of the second proximal phalanx with periosteal new bone formation extending proximally along the diaphysis consistent with a healing subacute fracture. There is diffuse osteopenia. There is mild to moderate narrowing of the inner phalangeal joints of the toes and minimal narrowing and small marginal ossified involving first MTP joint. There are calcaneal enthesophytes at the plantar fascia and Achilles attachments. XR/XR Foot Marquis 3V IMPRESSION: Right foot: Mild to moderate degenerative changes. Left foot: Healing fracture of the second proximal phalanx head. [id number] degenerative changes. Electronically signed by: Jose Edwards MD 01/06/2025 12:17 PM EDT
--- NOTE | ~2025-01-06 | XR_ITS ---
EXAMINATION: XR CHEST CLINICAL INFORMATION: J45.909 - Unspecified asthma, uncomplicated COMPARISON: None available. TECHNIQUE: 2 views of the chest were obtained. FINDINGS: There is a small calcified granuloma in the lateral right lung base 5 mm diameter. Lungs are clear otherwise. There is no pleural effusion. Heart size is normal. There is moderate atherosclerotic calcification aorta. Mild to moderate degenerative changes are visible in the thoracic spine. XR/XR chest 2V IMPRESSION: No acute disease. Calcified granuloma in the right lung base requires no further follow-up. Electronically signed by: Jose Edwards MD 01/06/2025 12:19 PM EDT
== END 2025-01-06 10:01 | disposition home or self-care (01) ==
LOC: HO.XRAY 10:00
PROVIDERS: PCP Physician Assistant; Visit Provider Nurse Practitioner Family
DX: E11.42 Type 2 diabetes mellitus with diabetic polyneuropathy (principal); J45.909 Unspecified asthma, uncomplicated; J98.11 Atelectasis; M50.30 Other cervical disc degeneration, unspecified cervical region; M51.369 Other intervertebral disc degeneration, lumbar region without mention of lumbar back pain or lower extremity pain; M47.816 Spondylosis without myelopathy or radiculopathy, lumbar region; M79.671 Pain in right foot; M79.672 Pain in left foot; Z91.81 History of falling
CPT/HCPCS: 17999; 71046; 73630; 99212; J7336

== ENCOUNTER 2025-01-06 10:00 | Outpatient (AMB) | payer OTHER, SELFPAY ==
--- OUTSIDE RECORDS SUMMARY | 2024-12-11 20:00 | XMS_ITS | Continuity of Care Document ---
Author Organization [facility] Address [address] [place] [phone] Phone Care Team Providers Care Computer Networking Instructor Name Role Phone Hanh MARIN, Onhandy Unavailable Unavailable Procedures Procedure Date MYOCRD IMG PET RST&STRS CT CARDIOVASCULAR STRESS TEST CARDIOVASCULAR STRESS TEST ECHO 2D W/DOPPLER Advance Directives Directive Yes / No Effective Date File Name No Information Encounters Encounter Description Practice Location Reason(s) For Visit Diagnoses Date Provider Providers Copied on Encounter [facility], [facility], [address] [place] [address], [id number], [place] tel:[phone] [facility] OP No Information Hanh Martinez. [address] [place] [address], [id number], . tel:[phone] Referring Provider: Bakari Mcdonald, [address] [place], [place] [address], [address]. tel:[phone] Family History Family Member Type Diagnosis Age At Onset No Information Payers Payer name Insurance type Covered constitution party ID Authoriza tion(s) No Information Social History [...]
--- NOTE | 2025-01-06 10:06 | MHC.OFFVIS ---
Vital Signs 01/06/25 10:11 01/06/25 10:59 01/06/25 11:20 Height 5 ft 2 in Weight 192 lb BMI 35.1 BP 189/79 H 178/78 H 210/91 H Blood Pressure Location Lt brachial Lt brachial Lt brachial Position Sitting Sitting Sitting Pulse 80 80 Pulse Source Pulse Oximeter Pulse Oximeter Pulse Oximetry (%) 98 99 Oxygen Delivery Method Room Air Room Air Comment 15 mins after qutenza application pt crying, tearful speaking about chronic conditions Intake Visit Reasons: Qutenza Intake Note: Pain today 10/24 Formal Service Waiter Required: Yes Formal Service Waiter Services: Formal Service Waiter Offered & Declined Formal Service Waiter Name: Daughter Accompanied by: Daughter Allergies Penicillins Allergy (Unknown, Verified 01/06/25 11:21) Rash HPI Comments Details: Patient presents for application of capsaicin 8% topical patch for diabetic neuropathy in bilateral feet. Patient is accompanied by her daughter Jeanette. This provider speaks fluently in patient's [place] language. Patient reports a longstanding burning sensation in bilateral legs, exacerbating at night. This condition has been chronic and persisted for over 3 years, partially elevated with topical capsaicin applications. Her diabetic state is uncontrolled, with a hemoglobin A1C of 9.1 (decrease from 10.8%, despite dietary compliance, Ozempic and insulin therapy, dietary restrictions). She reports recent eye exam was noted for diabetic retinopathy. Additionally, the patient has experienced a fall resulting in a knee injury, which occurred in September. The fall was due to slipping on a wet carpet, leading to a left knee and both feet injury that was managed with ice application and did not result in significant swelling or bruising. Patient reports she also re-injured her feet while attending family wedding in [place] last month and was hospitalized after ER visit. During that time she has been informed of a diagnosis of pericarditis and has been advised to follow up with a content analyst and primary care for further evaluation. Patient also reports intermittent midline chest discomfort and difficulty taking deep breaths at times. She reports stable asthma with occasional use of updrafts or inhalers. She reports her chest xray from [place] ER visit showed bibasilar atelectasis. She requests Pulmonology referral today and was advised to follow up with her PCP as well. Patient has been tearful about managing her chronic conditions and chronic pain. Patient presents with healing bruising of her dorsal mid and forefoot on the right with mild swelling of her toes on both feet with full ROM. She requests to proceed with Qutenza as skipping it in October has increased burning pain at night. Her skin is intact, no erythema or redness. Denies any recent cough, cold, infection, fever or any other significant changes in medical history since last office visit. PRIOR: Patient presents today for follow up for worsening chronic lower back pain. She is accompanied by her daughter. Patient ambulates slowly with use of walker. She continues to experience spinal stenosis-related pain in right L5-S1 distribution. She is sitting with bending forward position to relieve her radicular pain. She has numbness and tingling in her bilateral lower legs and feet due to diabetic neuropathy but also increased heaviness and numbness in her RLE with walking or standing. Qutenza (capsaicin 8%) patch has been approved and we will schedule her in office application. EMLA cream script was sent to her pharmacy. Patient reports she recently completed oral prednisone taper through her PCP office. Patient's daughter reports most recent A1C was elevated, over 9.0. Patient is poor candidate for steroid therapy. She has completed lumbar spine MRI on 06/12/22 ordered by her PCP. These results are not available today. We reviewed records from [facility] and lumbar spine MRI with significant changes at L5-S1 level as noted below. Patient reports she was seeing chiropractor for chronic lower back pain in 2019 and after therapy, she developed severe left sided pain with sciatica and could not walk. The MRI in 2019 was completed after chiropractic session. Patient reports she was referred to neurosurgery but contracted COVID illness and was hospitalized for 21 days at [facility], including intubation. Patient reports she has completed PT since then and has been referred back to PT. PRIOR: Patient is a pleasant 66 years old Indian speaking female who presents with chronic peripheral neuropathy in both of her feet and hands, bilateral shoulder pain and chronic back pain. She attributes her pain symptoms to degenerated discs in her spine, diabetes and arthritis. Denies any recent trauma, injury or falls. Patient reports she has been diabetic for over 25 years and her most recent A1C has been around 9. She reports hot burning, numbness and tingling with decreased sensation in her feet, mostly no sensation in her toes that happen to cramp and lock in frequently. Patient reports she used to follow Dr. Rizvi for back pain in the past for history of lumbar disc protrusions and herniations, spinal stenosis with consideration of back surgery but has declined it in 2019. Patient also states she had an unpleasant experience with an attempt for lumbar ALVERTO and had to abort her procedure due to significant pain. Patient reports progressive back and leg pain, worse with walking. She states the back pain radiates across her low back and radiates down the anterior legs to shins on the right side. Her symptoms worsen with walking or standing for 5 or less minutes. Patient reports increased pain in her shoulders with overhead arm use. Pain is described as constant dull, sore, hurting, aching, heavy, punishing, killing, tugging, pulling, wrenching, tiring, exhausting, hot burning, scalding, searing, tingling and stinging. Patient is using a walker with ambulation and reports that while walking she has to stop and take breaks frequently. She also reports using a commode at night. Patient notes partial pain relief with leaning forward. She rates her pain 7-8/10 on average doing small things around the house and 9-10/10 when walking. Patient denies any fever, abdominal or groin pain, weight changes, bowel/bladder incontinence or saddle anesthesia. Patient reports she completed many sessions of PT and HEP which was helpful for short term pain relief. She also uses the TENS unit. Patient has been taking Ibuprofen, diclofenac gel and lidocaine patches with minimal pain relief. She wears customized shoes and reports undergoing a diabetic foot exam annually. Patient reports she completed lumbar spine MRI and xrays at [facility] within the past 2 years. These results are not available for review today. Lumbar spine MRI done in 2005 showed minimal disc bulging at L4-5. 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 Onychomycosis Essential hypertension Lumbar radiculopathy, chronic Chronic painful diabetic neuropathy Review of Systems Const All systems reviewed & are unremarkable except as noted in HPI and below Reports as per HPI, Denies body aches, Denies chills, Reports fatigue, Reports fever(s), Denies frequent falls, Reports headache(s), Denies malaise, Denies night sweats and Denies weakness ENT Reports headache(s) Card Denies acrocyanosis, Reports chest pain (intermittent, midsternal with inspiration), Denies chest pain at rest, Denies diaphoresis, Denies rapid heart rate, Denies lightheadedness, Denies radiating jaw, neck or arm pain and Reports dyspnea on exertion Resp Denies cough, Denies hemoptysis, Reports pain on inspiration, Reports dyspnea on exertion and Denies wheezing Neuro Denies frequent falls, Reports headache(s) and Denies weakness Endo Reports fatigue Aller/Immun Denies wheezing Physical Exam Vital Signs: Last Vital Signs Pulse 80 01/06/25 10:59 BP 178/78 H 01/06/25 10:59 Pulse Ox 99 01/06/25 10:59 Oxygen Delivery Method Room Air 01/06/25 10:59 BMI result Body Mass Index 35.1 General: Appears afebrile. Alert and oriented. Mood and affect appropriate. Follows and participates in conversation appropriately. Respiratory effort is unlabored. No cough. Able to transition from sit to stand with the use of walker. Ambulates with bilaterally normal heel strike and toe off. Eyes General: appearance normal, both eyes and all related structures Visual Salazar: normal visual salazar by confrontation Pupils: Equal, round and reactive pupils present Neck Neck: Yes prominent supraclavicular fat pad Resp Effort & Inspection: normal respiratory effort, no cough, no respiratory distress and symmetric chest movement Cardio Jugular venous distension: no JVD Palpation: normal PMI Rate: regular rate Rhythm: regular rhythm Peripheral pulses: Peripheral pulses 2+ throughout GI Inspection: Yes obesity Palpation (GI): Soft to palpation, nontender and no guarding General: Yes no CVA tenderness Back/Spine/Pelvis Back: no CVA tenderness Cervical Spine: cervical ROM normal and No Cervical spine tenderness Thoracic/Lumbar Spine: thoracic and lumbar spine normal to inspection, Lasegue's sign negative, straight leg raise negative bilaterally, pain with thoraco-lumbar ROM, paraspinal muscle tenderness, thoraco-lumbar ROM limited, No thoracic spinal tenderness and lumbar spinal tenderness (L4-S1) Sacroiliac joints: bilaterally tender to palpation Neuro Cranial nerves: Yes Equal, round and reactive pupils present Extrem Other: There is decreased sensation over the soles of the feet and toes. No soft tissue swelling, redness or warmth. Healing bruising over right dorsal region of mid and forefoot, tender to touch with mild swelling. Toes with full ROM bilaterally. Normal capillary refill. No pedal edema. No calf tenderness. Pulses +2 throughout bilaterally. Office Procedures Topical Capsaicin Date(s) of prior application(s): See EMR for prior applications, most recent July 2024 Main area of pain on the body: Bilateral feet Laterality: Bilateral Location of left foot pain: Anterior, Posterior, Plantar, Proximal, Dorsal, Medial, Lateral and Distal Location of right foot pain: Anterior, Posterior, Plantar, Proximal, Dorsal, Medial, Lateral and Distal Quality of pain: Aching, Stabbing, Nagging, Burning, Gnawing and Numb-like Details:: Two patches, 560 cm2 were utilized per each foot. EMLA Cream (lidocaine 2.5% and prilocaine 2.5%) was applied at home by patient prior to application of the patches. The patient tolerated the procedure well. Patient?s vitals signs remained stable throughout the procedure. Patient was able to complete the stipulated 30 minutes of the therapeutic application without any discomfort. Office Meds capsaicin-skin cleanser 8 % topical kit Performing Provider: DONALD Espinosa Performing Location: [facility] Administered by: DONALD Espinosa on 01/06/25 10:40 Dose Route Admin Location Dispensed Lot Number Expiration Date NDC [employer] Work[employer] Specialist 4 ea topical [facility] 4 ea [id number] 03/17/26 33747-009-23 [employer] Total Dispensed Waste 4 ea 0 % Results Reviewed Results Reviewed: MR BRAIN without CONTRAST 05/15/24 at [facility] INDICATION: Headache, unspecified. Other cervical disc degeneration, unspecified cervical region. Cervical region radiculopathy. Neck and lower back burning, stabbing and pulling pain for over one year. Additional History: Arthritis. TECHNIQUE: Multi-planar, multi-sequence MR imaging of the brain was performed without contrast. COMPARISON: None Available. FINDINGS: Diffusion-weighted imaging demonstrates no area of restricted diffusion to suggest acute infarction. There is no intracranial hemorrhage, midline shift, mass effect, or extra-axial fluid collection. There are mild scattered patchy areas of T2 prolongation within the subcortical and deep periventricular white matter, suggesting changes of chronic microvascular ischemia. Brain parenchyma otherwise demonstrates normal morphology and signal characteristics. Midline structures are within normal limits. Major intracranial vessels demonstrate preserved flow voids. Brain volume and ventricular system are within normal limits for age. Visualized paranasal sinuses are unremarkable. Orbits, globes, and mastoid air cells are unremarkable. IMPRESSION: No acute intracranial finding. MR SPINE CERVICAL without CONTRAST 05/15/24 INDICATION: Other cervical disc degeneration, unspecified cervical region. Cervical region radiculopathy. Headache, unspecified. Neck and lower back burning, stabbing and pulling pain for over one year. Additional History: Arthritis. TECHNIQUE: Unenhanced multiplanar, multisequence MR imaging of the cervical spine. COMPARISON: None Available. FINDINGS: Normal cervical alignment is demonstrated. Vertebral heights are well maintained. Craniocervical junction is unremarkable. Bone marrow signal is within normal limits, and no suspicious osseous lesion is identified. Prevertebral and paraspinal soft tissues are within normal limits. Visualized portions of the posterior fossa are unremarkable. Cervical cord demonstrates normal course, caliber, and signal characteristics. No epidural fluid collection or hematoma is identified. At C2-3 there is no significant disc herniation or protrusion. No central canal or neural foraminal stenosis is demonstrated. At C3-4 disc-osteophyte complex with xeoy-rs-qcycknvz canal narrowing and mvmj-pl-xgqamovh bilateral foraminal narrowing. At C4-5 disc osteophyte complex with mmmzctmj-ak-hcbjjm canal stenosis and at least moderate bilateral foraminal narrowing. At C5-6 disc-osteophyte complex with moderate canal narrowing and arliugry-hq-nhzjuc bilateral foraminal narrowing. At C6-7 disc-osteophyte complex with fzbr-zr-dwsyhfjl canal narrowing and aiixdgpr-lk-epxnyr bilateral foraminal narrowing. At C7-T1 disc-osteophyte complex with bdpg-ke-icxkykrf canal narrowing and mild bilateral foraminal narrowing. IMPRESSION: 1.Frav-cv-mhhggdrb multilevel degenerative disc disease with loss of disc height and disc desiccation seen diffusely throughout the cervical spine. 2.Vertebral heights are preserved. No malalignments. 3.Disc-osteophyte complex formation with multilevel canal stenosis, jffeabtn-ls-itugan at C4-5 level, moderate at C5-6 level. No evidence of disc herniation. 4.Disc-osteophyte complex formation with multilevel foraminal narrowing as above, trmtaiqr-zf-bapdjg at C5-6 and C6-7 levels. 5.No STIR signal abnormality to suggest bone marrow edema, soft tissue or ligamentous injury. XR FOOT 3 OR MORE VIEWS BILATERAL, bilateral foot x-rays 01/06/25 TECHNIQUE: X-ray lower extremity, bilateral feet INDICATION: Foot pain COMPARISON: None available. FINDINGS: RIGHT FOOT: There are mild degenerative changes with mild joint space narrowing and small marginal osteophytes involving the IP joints of the toes and first and fifth MTP joints. There are small calcaneal enthesophytes at the plantar fascia and Achilles tendon attachment. LEFT FOOT: There is lucency through the heads of the second proximal phalanx with periosteal new bone formation extending proximally along the diaphysis consistent with a healing subacute fracture. There is diffuse osteopenia. There is mild to moderate narrowing of the inner phalangeal joints of the toes and minimal narrowing and small marginal ossified involving first MTP joint. There are calcaneal enthesophytes at the plantar fascia and Achilles attachments. IMPRESSION: Right foot: Mild to moderate degenerative changes. Left foot: Healing fracture of the second proximal phalanx head. Midp-lh-tbbndayj degenerative changes. XR CHEST 01/06/25 CLINICAL INFORMATION: J45.909 - Unspecified asthma, uncomplicated COMPARISON: None available. TECHNIQUE: 2 views of the chest were obtained. FINDINGS: There is a small calcified granuloma in the lateral right lung base 5 mm diameter. Lungs are clear otherwise. There is no pleural effusion. Heart size is normal. There is moderate atherosclerotic calcification aorta. Mild to moderate degenerative changes are visible in the thoracic spine. IMPRESSION: No acute disease. Calcified granuloma in the right lung base requires no further follow-up. Assessment & Plan Assessment & Plan (1) Chronic painful diabetic neuropathy: Code(s): E11.40 - Type 2 diabetes mellitus with diabetic neuropathy, unspecified Category: Medical (2) Bilateral foot pain: Code(s): M79.671 - Pain in right foot; M79.672 - Pain in left foot Category: Medical (3) History of recent fall: Code(s): Z91.81 - History of falling Category: Medical (4) Asthma: Code(s): J45.909 - Unspecified asthma, uncomplicated Category: Medical (5) Mild bibasilar atelectasis: Code(s): J98.11 - Atelectasis Category: Medical (6) Degenerative disc disease, cervical: Code(s): M50.30 - Other cervical disc degeneration, unspecified cervical region Category: Medical (7) Lumbar degenerative disc disease: Code(s): M51.36 - Other intervertebral disc degeneration, lumbar region Category: Medical (8) Lumbar spondylosis: Code(s): M47.816 - Spondylosis without myelopathy or radiculopathy, lumbar region Category: Medical Plan Patient is status post application of topical capsaicin 8% for diabetic neuropathy in bilateral feet. She continues to reports this has been effective for symptomatic relief of chronic diabetic neuropathy in her feet, especially during nighttime. Patient tolerated the procedure without significant discomfort. Pulmonology referral sent to Dr. Portillo for asthma and atelectasis management as well as new findings of calcified granuloma in the right lung base per today's xray. Patient also completed bilateral foot xray after today's visit, results were called to patient and her daughter, patient will follow up with her Podiatry. Patient was discharged home in stable condition with discharge instructions. Follow up in 3 months for Qutenza and sooner as needed. Patient was informed and verbally consented to the use of an ambient scribe for clinic note documentation during this visit. I hereby testify that I spent 45 minutes in conversation with this patient as well as with planning and coordinating care for this patient and organizing this note. Orders: Orders AMB Capsaicin Patch - Practice Supplied Today E11.40 - Type 2 diabetes mellitus with diabetic neuropathy, unspecified XR foot LT min 3V Today M79.671 - Pain in right foot, M79.672 - Pain in left foot, Z91.81 - History of falling Referrals Pulmonology Referral J45.909 - Unspecified asthma, uncomplicated, J98.11 - Atelectasis Coding Level of Care Code Est Pt Level 4 (06615) Complex EM visit Add On G2211 Diagnoses Chronic painful diabetic neuropathy E11.40 Bilateral foot pain M79.671; M79.672 History of recent fall Z91.81 Asthma J45.909 Mild bibasilar atelectasis J98.11 Degenerative disc disease, cervical M50.30 Lumbar degenerative disc disease M51.36 Lumbar spondylosis M47.816
[2025-01-06 10:11] VITALS: BP 189/79; PULSE 80; O2SAT 98; BMI 35.1
[2025-01-06 10:59] VITALS: BP 178/78; PULSE 80; O2SAT 99
[2025-01-06 11:20] VITALS: BP 210/91
--- OUTSIDE RECORDS SUMMARY | 2025-01-06 12:15 | XMS_ITS | Encounter Summary ---
Author Organization [employer] Address [address] [place] [address] Care Team Providers Care Dehydrogenation Supervisor Name Role Phone Janice Mulligan BDS Primary Care Provide r Reason for Visit * Reason Onset Date Comments appt 12/28/2023 Encounter Details Date Type Department Care Team ([facility] Contact Info) Description 12/28/2023 Telephone [facility] DENTAL [address], [place] [phone] Janice Mulligan BDS [address] [place] [address] appt Social History Tobacco Use Types Packs/Day [...] 1pm. There was an error in scheduling. welcome desk agent in [facility] will reach out to patient to rs appt DR documented in this encounter Plan of Treatment Not on file documented as of this encounter Visit Diagnoses Not on filedocumented in this encounter Care Teams Dehydrogenation Supervisor Relationship Specialty Start Date End Date Janice Mulligan BDS [address] [place] [address] PCP - General Dental Laboratory Animal Caretaker 05/29/24 documented as of this encounter
--- OUTSIDE RECORDS SUMMARY | 2025-01-06 12:15 | XMS_ITS | Clinical Summary ---
Author Organization [facility] Address [address] [place] [address] Care Team Providers Care Casino Surveillance Officer Name Role Phone Griselda Greer PA-C Primary Care Provider + [phone] Source Comments PLEASE NOTE, if this patient [...] Eggs High 08/20/2021 Rash Penicillins 11/06/2012 Medications sennosides-docusa te sodium (TOMMY-COLACE) 8.6-50 mg per tabletIndications :Functional constipation Take 2 Tablets by mouth nightly at bedtime as needed for constipation 180 Tablet 1 05/08/19 24 Active blood sugar diagnostic (FREESTYLE LITE STRIPS) stripsIndications :Uncontrolled type 2 diabetes mellitus with hyperglycemia ([facility]) USE DIRECTED TWICE A DAY DX E11.9 100 Each 11 07/10/19 24 Active cholecalciferol (VITAMIN D-3) 50 mcg (2,000 unit) tabletIndications :Mild vitamin D deficiency TAKE 1 CAPSULE BY MOUTH ONCE DAILY 90 Tablet 2 08/23/19 24 Active fluticasone-umecl idinum-vilanterol (TRELEGY ELLIPTA) 100-62.5-25 mcg inhalerIndication s:Chronic cough Inhale 1 Puff into the lungs once daily 30 Each 10/02/19 24 Active MISCELLANEOUS MEDICAL SUPPLY MISCIndications:M ixed incontinence,Pelv ic relaxation by miscellaneous route daily. Bladder control pads, disp 120/month, dx mixed incontinence, pelvic relaxation syndrome 120 Each 10/02/19 24 Active disposable glovesIndications :Mixed incontinence,Pelv ic relaxation XL gloves, disp 100/month, dx mixed incontinence, pelvic relaxation syndrome 100 Each 10/02/19 24 Active MISCELLANEOUS MEDICAL SUPPLY MISCIndications:M ixed incontinence,Pelv ic relaxation by miscellaneous route daily. Reusable bed liners, disp 2/month, dx mixed incontinence, pelvic relaxation syndrome 2 Each 10/02/19 24 Active MISCELLANEOUS MEDICAL SUPPLY MISCIndications:M ixed incontinence,Pelv ic relaxation by miscellaneous route daily. Personal wipes, disp 120/month, dx mixed incontinence, pelvic relaxation syndrome 120 Each 10/02/19 24 Active pen needle, diabetic 29 gauge x 1/2 ndleIndications:T ype 2 diabetes mellitus without complication, with long-term current use of insulin ([facility]) Use bid, dx E11.9 100 Each 11/20/19 24 Active nystatin (MYCOSTATIN) 100,000 unit/gram powderIndications :Intertrigo Apply topically 4 (four) times daily 30 g 2 01/15/20 24 Active nystatin (MYCOSTATIN) 100,000 unit/gram ointmentIndicatio ns:Intertrigo Apply topically 2 (two) times daily 30 g 1 01/15/20 24 Active albuterol HFA 90 mcg/actuation inhalerIndication s:Mild intermittent asthmatic bronchitis without complication ([facility]) INHALE 2 PUFFS 4 TIMES A DAY NEEDED FOR COUGH 18 Each 3 02/17/20 24 Active albuterol HFA 90 mcg/actuation inhaler Inhale 2 Puffs into the lungs every 4 to 6 (four to six) hours as needed for shortness of breath 18 g 6 02/23/20 24 Active MISCELLANEOUS MEDICAL SUPPLY MISC by miscellaneous route daily. [facility]: reusable bed liners, personal wipes, medium gloves 1 Each 02/23/20 24 Active MISCELLANEOUS MEDICAL SUPPLY MISCIndications:T ype 2 diabetes mellitus without complication, with long-term current use of insulin (CMS & HHS-HCC),Peripher al neuropathic pain by miscellaneous route daily. Diabetic shoes, disp 1 pair, dx diabetes with peripheral neuropathy 1 Each 02/23/20 24 Active MISCELLANEOUS MEDICAL SUPPLY MISCIndications:T ype 2 diabetes mellitus without complication, with long-term current use of insulin (CMS & HHS-HCC),Peripher al neuropathic pain by miscellaneous route daily. Diabetic shoe inserts, disp 2, lifetime need, dx diabetes with peripheral neuropathy 2 Each 02/23/20 24 Active pen needle, diabetic (BD CORY 2ND GEN PEN NEEDLE) 32 gauge x 5/32 ndle USE 2 TIMES A DAY WITH LANTUS 200 Each 04/01/20 24 Active metFORMIN (GLUCOPHAGE) 1,000 mg tabletIndications :Type 2 diabetes mellitus without complication, with long-term current use of insulin ([facility]) TAKE 1 TABLET BY MOUTH TWICE A DAY 180 Tablet 2 04/05/20 24 Active docusate sodium (COLACE) 100 mg capsuleIndication s:Functional constipation Take 2 Capsules by mouth nightly at bedtime 180 Capsule 3 05/21/19 25 Active polyethylene glycol, PEG, 3350 (GLYCOLAX) 17 gram/dose powderIndications :Functional constipation Take 17 g by mouth 2 (two) times daily Dissolve in a glass (8 oz) of water. 3060 g 3 05/21/19 25 Active rosuvastatin (CRESTOR) 20 mg tabletIndications :Hyperlipidemia with target LDL less than 70 Take 1 Tablet by mouth nightly at bedtime DOSE increase 90 Tablet 3 05/29/19 25 Active MISCELLANEOUS MEDICAL SUPPLY MISCIndications:O SA (obstructive sleep apnea) by miscellaneous route daily Auto CPAP 10-15 cmH2o with Airfit F20 medium mask with heated humidifier, Severe ONEIL dx, fax to [employer] 1 Each 06/20/19 25 Active alcohol swabs (ALCOHOL PREP PADS)Indications: Type 2 diabetes mellitus without complication, with long-term current use of insulin (CMS & HHS-HCC) USE DAILY E11.9 100 Each 07/04/19 25 Active blood sugar diagnostic (FREESTYLE LITE STRIPS) stripsIndications :Type 2 diabetes mellitus without complication, with long-term current use of insulin (CMS & HHS-HCC) USE TWICE A DAY 100 Each 08/03/19 25 Active MISCELLANEOUS MEDICAL SUPPLY MISCIndications:D egeneration of intervertebral disc of lumbar region with discogenic back pain by miscellaneous route daily LARGE SALONPAS, disp 90/month, dx lumbar disc disease. 90 Each 09/24/19 [address] Active aspirin [address] tabletIndications :Type 2 diabetes mellitus without complication, with long-term current use of insulin ([facility]) TAKE 1 TABLET BY MOUTH EVERY DAY 90 Tablet 2 10/15/19 25 Active ibuprofen 600 mg tabletIndications :Chronic midline low back pain with right-sided sciatica TAKE 1 TABLET BY MOUTH 3 (THREE) TIMES DAILY NEEDED FOR HEADACHES OR PAIN 270 Tablet 2 10/29/19 25 Active semaglutide (OZEMPIC) 2 mg/dose (8 mg/3 mL) pen injectorIndicatio ns:Type 2 diabetes mellitus without complication, with long-term current use of insulin ([facility]) Inject 2 mg into the skin once a week DOSE increase. 6 mL 6 10/31/19 25 Active insulin glargine (LANTUS SOLOSTAR U-100 INSULIN) 100 unit/mL (3 mL) penIndications:Ty pe 2 diabetes mellitus without complication, with long-term current use of insulin ([facility]) Inject 50 Units into the skin 2 (two) times daily. 90 mL 3 10/31/19 25 Active diclofenac epolamine (FLECTOR) 1.3 % patchIndications: Muscle strain Place 1 Patch onto the skin 2 (two) times daily. 60 Patch 10/31/19 25 Active lisinopriL 20 mg tabletIndications :Essential hypertension, benign TAKE 1 TABLET BY MOUTH TWICE A DAY 180 Tablet 3 12/10/19 25 Active amLODIPine (NORVASC) 2.5 mg tabletIndications :Essential hypertension, benign TAKE 1 TABLET BY MOUTH EVERY DAY IN THE MORNING 90 Tablet 2 12/10/19 25 Active lisinopriL 20 mg tabletIndications :Essential hypertension, benign TAKE 1 TABLET BY MOUTH TWICE A DAY 180 Tablet 3 11/20/19 24 025 Discontin ued(Reord er (E-Cancel Not Sent)) amLODIPine (NORVASC) 2.5 mg tabletIndications :Essential hypertension, benign TAKE 1 TABLET BY MOUTH EVERY DAY IN THE MORNING 90 Tablet 2 03/04/20 24 025 Discontin ued(Reord er (E-Cancel Not Sent)) Active Problems Problem Noted Date Diagnosed Date [...] June 15, 2015 13:43 EST Encounter info: [id number], [facility], [facility], 06/15/2015 - 06/22/2015 * Final Report * Reason For Exam lower back pain;lower back pain RESULT: MRI Lumbar Spine W/O Contrast [facility] VISIT NUMBER :[id number] Patient Name : Teri Melendez Date of : 1955 Date of Exam : 06/15/2015 Referring Physician : GRISELDA GREER [facility] [address] [place] [address] Exam : MR - LUMBAR SPINE (C-) CPT 72102 - Room Description : [facility] Espr 1.5 Technique : Sag T1, Sag3d [...] Signed Date/Time: 06/15/15 1:43 pm Transcribed By: MAHSA Transcribed Date/Time: 06/15/15 1:43 pm MRI Lumbar Spine W/O Contrast This document has an image Cervical spine degeneration on MRI 05/2015 Midline low back pain with right-sided sciatica 05/22/2015 Right shoulder tendinitis 08/15/2014 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, 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17 01/08/2014 Diabetic neuropathy ([facility]) 07/10/2013 Type 2 diabetes mellitus wit hout complication, with long-term current use of insulin ([facility]) 11/06/2012 Overview (11/06/2012): hga1c 07/25/2012 13.8 Essential [...] Date Diagnosed Date Resolved Date COVID-19 06/2019 [facility] 08/12/2019 021 Overview (08/12/2019): COVID-19 Tracking [reviewed or updated 08/12/2019] Exposure to confirmed case or travel risk - no Date that symptoms began - 07/16/19 Patient risk factors for severe COVID-19: Diabetes Healthcare worker or concept artist? No COVID-19 Tested? - Yes - Date Tested 07/16/19 Testing Location - [facility] - Testing Results - Positive Is patient ? No Encounters Date Type Department Care Team Description 10/30/2024 11:20 AM EDT Office Visit [address] [phone] Griselda Greer PA-C from Last 3 Months Social History Tobacco Use Types Packs/Day Years Used Date Smoking Tobacco: Never Passive Smoke Exposure: Never Smokeless Tobacco: Never Tobacco Cessation:Counseling Given: Yes Alcohol Use Standard Drinks/Week Comments No 0 (1 standard drink = 0.6 oz pur e alcohol) Social Connections Answer Date Recorded How often do you feel lonely or isolated from th ose around you? 1 05/21/2024 Financial Resource Strain Answer Date R ecorded Hard to pay for: Food 1 05/21/2024 Stress Answer Date Recorded Do you feel these kinds of stress these days? 1 05/21/2024 Physical Activity Answer Date Recorded Physical Activity 0 12/08/2018 Food Insecurity Answer Date Recorded Hard to pay for: Food 1 05/21/2024 Transportation Needs Answer Date Record ed Hard to pay for: Transportation 1 05/21/2024 Housing Stability Answer Date Recorded Hard to pay for: Rent/Mortgage payment 1 05/21/2024 Safety and Environment Answer Date Doc rded Safety 1 05/29/2023 Utilities Answer Date Recorded Hard to pay for: Utilities 1 05/21 Employment Answer Date Recorded Stress 0 07/05/2021 Comments No Sex and Gender Information Value Date Recorded Sex Assigned at Female 03/02/2017 4:44 PM PST Legal Sex Female 11:36 AM PDT Gender Identity Female 03/02/2017 4:44 PM PST Sexual Orientation Straight 03/02/2017 4: 44 PM PST Last Filed Vital Signs Vital Sign Reading Time Taken Comments Blood Pressure 138/80 10/30/2024 11:17 AM EDT Pulse 98 10/30/2024 11:17 AM EDT Temperature 37 C (98.6 F) 10/30/2024 11:17 AM EDT Respiratory Rate 16 10/30/2024 11:17 AM EDT Oxygen Saturation 96% 10/30/2024 11:17 AM EDT Inhaled Oxygen Concentration - - Weight 87.5 kg (193 lb) 10/30/2024 11:17 AM EDT Height 157 cm (5' 1.81 ) 10/30/2024 11:17 AM EDT Body Mass Index 35.52 10/30/2024 11:17 AM EDT Plan of Treatment Health Maintenance Due Date Last Done Comments Medicare Annual Wellness Visit 1972 Imm-DTaP/Tdap/Td (1 - Tdap) 1973 Imm-Pneumococcal 50+ (1 of 2 - PCV) 1973 CT Colonography 07/19/1999 Colonoscopy 07/19/1999 Fecal DNA 07/19/1999 Flexible Sigmoidoscopy 07/19/1999 Imm-Zoster, Recombinant (1 of 2) 2004 Colorectal Cancer Screening 05/30/2015 FIT/gFOBT 05/30/2015 05/30/2014 (Decl ined), 03/29/2013 (Declined) Bone Density Screening 07/19/2019 Falls Prevention 03/20/2024 03/20/2023 Dental Examination 03/22/2024 03/20/2023 (M anaged by Outside Provider), 04/02/2021 (Managed by Outside Provider), 12/26/2019 (Managed by Outside Provider) Retinopathy Screening 06/25/2024 06/26/2023 , 02/08/2022, 05/30/2014 (Declined), Additional history exists Hemoglobin A1c 08/18/2024 05/21/2024, 08/15, 02/22/2023, Additional history exists Urine Albumin Creatinine Ratio Screening 08/24/2024 08/25/2023, 02/22/2023, 05/08/2020, Additional history exists [id number]-25 ( season) 2024 Imm-Influenza (#1) 2024 05/30/2014 (D eclined), 03/29/2013 (Declined) Diabetes Foot Exam 05/21/2025 05/21/2024, 0 05/26/2022, 03/03/2022, Additional history exists Lipid Screening 05/21/2025 05/21/2024, 08/15, 08/25/2023, Additional history exists Serum Creatinine 05/21/2025 05/21/2024, 01/2024, 02/22/2023, Additional history exists TSH Monitoring 05/21/2025 05/21/2024, 08/15, 02/22/2023, Additional history exists Breast Cancer Screening (Mammogram) 09/23/2025 03/29/2013 (Declined) Postponed from 03/29/2015 (Patient postponement) Tobacco Screening 10/30/2025 10/30/2024 Hepatitis C Screening Completed 05/24/2018 Alcohol and Drug Screen Completed 05/21/19 25, 05/29/2023, 10/10/2022, Additional history exists Depression Annual Screen Completed 025, 11/07/2014, 01/08/2014 (Declined) Procedures Procedure Name Priority Date/Time Associated Diagnosis Comments OTHER ORDERS SCANNED DOCUMENT 11/06/2024 3:00 AM EDT HEALTH HISTORY SCANNED DOCUMENT 11/04/2024 3:00 AM EDT OTHER ORDERS SCANNED DOCUMENT 10/29/2024 3:00 AM EDT OTHER ORDERS SCANNED DOCUMENT 10/21/2024 3:00 AM EDT TSH W/RFLX FREE T4 Routine 05/21/2024 11 [...] type Snoring Lower urinary tract symptoms (LUTS) MICROALBUMIN/CREATINI NE RATIO, URINE, RANDOM Routine 08/25/2023 10:40 AM EDT Type 2 diabetes mellitus without complication, with long-term current use of insulin ([facility]) Degenerative lumbar disc, MRI 06/15/2015 Lower urinary tract symptoms (LUTS) EYE EXAM 06/26/2023 3:00 AM EDT HEPATITIS A,B,C PANEL Routine 05/24/2018 10:43 AM EST Uncontrolled type 2 diabetes mellitus with hyperglycemia ([facility]) from Last 3 Months or Most Recently Relevant to Health Maintenance Results * OTHER ORDERS SCANNED DOCUMENT (11/06/2024 3:00 AM EDT) Only the most recent of3 resultswithin the time period is included. 11/06/2024 3:00 AM EDT Griselda Greer PA-C SCAN OTHER ORDERS Final Resu lt * HEALTH HISTORY SCANNED DOCUMENT (11/04/2024 3:00 AM EDT) 11/04/2024 3:00 AM EDT [facility] Provider Default SCAN OTHER ORDERS Final Re sult * (ABNORMAL) TSH W/RFLX FREE T4 (05/21/2024 11:09 AM EST) TSH W/REFLEX TO FT4 5.42(H) 0.40 - 4.50 mIU/L [facility] Blood Blood / Unknown 05/21/2024 1 1:09 AM EST 05/21/2024 11:10 AM EST Narrative [facility] - 05/23/2024 12:02 PM EST FASTING:NO PATIENT UNABLE TO VOID; ADVISED TO RETURN FOR COLLECTION. Griselda Greer PA-C LAB - BLOOD DRAW Edited Resu lt - Final [facility] [address] [place] [id number], [facility] [address] [place] [phone] * (ABNORMAL) HEMOGLOBIN GLYCOSYLATED A1C (05/21/2024 11:09 AM EST) HEMOGLOBIN A1C 10.8(H) <5.7 % of total Hgb [facility] Comment: For someone without known diabetes, a [...] A1c for diagnosis of diabetes for children. Blood Blood / Unknown 05/21/2024 1 1:09 AM EST 05/21/2024 11:10 AM EST Narrative [facility] - 05/23/2024 12:02 PM EST FASTING:NO PATIENT UNABLE TO VOID; ADVISED TO RETURN FOR COLLECTION. us Griselda Greer PA-C LAB - BLOOD DRAW Edited Resu lt - Final [facility] [address] [place] [address], [facility] [address] [place] [phone] * (ABNORMAL) LIPID PANEL (05/21/2024 11:09 AM EST) CHOLESTEROL, TOTAL 232(H) <200 mg/dL [facility] HDL CHOLESTEROL 43(L) > OR = 50 mg/dL [facility] TRIGLYCERIDES 155(H) <150 mg/dL [facility] LDL-CHOLESTEROL 160(H) 99 mg/dL (calc) [facility] Comment: Reference range: <100 Desirable range <100 mg/dL for primary prevention; <70 mg/dL for patients with CHD or diabetic patients with > or = 2 CHD risk factors. LDL-C is now calculated using the Tony-Bridgette calculation, which is a validated novel method providing better accuracy than the Friedewald equation in the estimation of LDL-C. Tony EAGLE et al. FAITH. 2013;310(19): 6389-0471 (http://education.Editorially.Nonstop Games/faq/XUN108) CHOL/HDLC RATIO 5.4(H) <5.0 (calc) [facility] NON-HDL CHOLESTEROL 189(H) <130 mg/dL (calc) [facility] Comment: For patients with diabetes plus 1 major ASCVD risk factor, treating to a non-HDL-C goal of <100 mg/dL (LDL-C of <70 mg/dL) is considered a therapeutic option. Blood Blood / Unknown 05/21/2024 1 1:09 AM EST 05/21/2024 11:10 AM EST Narrative [facility] - 05/23/2024 12:02 PM EST FASTING:NO PATIENT UNABLE TO VOID; ADVISED TO RETURN FOR COLLECTION. us Griselda Greer PA-C LAB - BLOOD DRAW Final Resul t [facility] [address] [address], [facility] [address] [place] [address] * (ABNORMAL) COMPREHENSIVE METABOLIC PANEL (05/21/2024 11:09 AM EST) GLUCOSE 180(H) 65 - 139 mg/dL [facility] Comment: Non-fasting reference interval UREA NITROGEN (BUN) 11 7 - 25 mg/dL [facility] CREATININE (blood) 0.60 0.50 - 1.05 mg/dL [facility] EGFR 97 > OR = 60 mL/min/1. 73m2 [facility] BUN/CREATININE RATIO SEE NOTE: [facility] Comment: Not Reported: BUN and Creatinine are within reference range. SODIUM 138 135 - 146 mmol/L [facility] POTASSIUM 4.0 3.5 - 5.3 mmol/L [facility] CHLORIDE 103 98 - 110 mmol/L [facility] CARBON DIOXIDE 31 20 - 32 mmol/L [facility] CALCIUM 9.1 8.6 - 10.4 mg/dL [facility] PROTEIN, TOTAL 6.8 6.1 - 8.1 g/dL [facility] ALBUMIN 4.2 3.6 - 5.1 g/dL [facility] GLOBULIN 2.6 1.9 - 3.7 g/dL (calc) [facility] ALBUMIN/GLOBULI N RATIO 1.6 1.0 - 2.5 (calc) [facility] BILIRUBIN, TOTAL 0.5 0.2 - 1.2 mg/dL [facility] ALKALINE PHOSPHATASE 87 37 - 153 U/L [facility] AST 20 10 - 35 U/L [facility] ALT 17 6 - 29 U/L [facility] Blood Blood / Unknown 05/21/2024 1 1:09 AM EST 05/21/2024 11:10 AM EST Narrative [facility] - 05/23/2024 12:02 PM EST FASTING:NO PATIENT UNABLE TO VOID; ADVISED TO RETURN FOR COLLECTION. us Griselda Greer PA-C LAB - BLOOD DRAW Edited Resu lt - Final Performing Organization Address [facility]/ZIP Co de Phone Number [facility] [address] [address], [facility] [address] [address] * MICROALBUMIN/CREATININE RATIO, URINE, RANDOM (08/25/2023 10:40 AM EDT) CREATININE, RANDOM URINE 71 20 - 275 mg/dL [facility] MICROALBUMIN 1.2 mg/dL [email or web address] [facility] Comment: Reference Range Not established MICROALBUMIN/CREA TININE RATIO, RANDOM URINE 17 <30 mg/g creat [facility] Comment: The ADA defines abnormalities in albumin excretion as follows: Albuminuria Category Result (mg/g creatinine) Normal to Mildly increased <30 Moderately increased 30-299 Severely increased > OR = 300 The ADA recommends that at least two of three specimens collected within a 3-6 month period be abnormal before considering a patient to be within a diagnostic category. Urine Urine specimen / Unknown 08/25/2023 10:40 AM EDT 08/25/2023 10:42 AM EDT Narrative [facility] - 08/26/2023 8:43 PM EDT FASTING:YES us Griselda Greer PA-C LAB URINE AMBULATORY Final R esult Performing Organization Address [facility]/ZIP Co de Phone Number [facility] [address] [address], [facility] [address] [phone] * EYE EXAM (06/26/2023 3:00 AM EDT) 06/26/2023 3:00 AM EDT us Griselda Greer PA-C OTHER Edited Resul t - Final * (ABNORMAL) HEPATITIS A,B,C PANEL (05/24/2018 10:43 AM EST) HEPATITIS B SURFACE ANTIBODY POSITIVE(A) NEGATIVE [facility] HEPATITIS B SURFACE ANTIGEN NEGATIVE NEGATIVE [facility] Comment: Over the counter supplements containing high doses of biotin may interfere with this assay. If interference is suspected, patients shoud be retested after refraining from biotin supplements for 72 hours. HEPATITIS C VIRUS DIAGNOSTIC NEGATIVE NEGATIVE [facility] HEPATITIS B CORE ANTIBODY POSITIVE(A) NEGATIVE [facility] HEPATITIS A ANTIBODY TOTAL POSITIVE(A) NEGATIVE [facility] Comment: Over the counter supplements containing high doses of biotin may interfere with this assay. If interference is suspected, patients shoud be retested after refraining from biotin supplements for 72 hours. Blood specimen (specimen) Blood / Unknown 05/24/2018 10:43 AM EST 05/24/2018 10:56 AM EST Narrative [facility] - 05/24/2018 12:41 PM EST [employer], [place] [address] Underpresser Hand - Jaelyn Ferguson MD PT ID [id number] ORD# [id number] Griselda Greer PA-C LAB - BLOOD DRAW [place] [address], from Last 3 Months or Most Recently Relevant to Health Maintenance Insurance [facility] [employer] Care Teams Casino Surveillance Officer Relationship Specialty Start Date End Date Griselda Greer PA-C [address] [place] [phone] PCP - General 10/29/12
--- OUTSIDE RECORDS SUMMARY | 2025-01-06 12:15 | XMS_ITS | Encounter Summary ---
Author Organization [facility] [employer] Address [address] [place] [address] Care Team Providers Care Parts Specialist Name Role Phone Janice Mulligan BDS Primary Care Provide r Reason for Visit * Reason Onset Date Comments Prior Authorization 10/02/2023 Encounter Details Date Type Department Care Team ([facility] Contact Info) Description 10/02/2023 Telephone [facility] [address] [place], [place] [phone] Janice Mulligan BDS [address] [place], [place] [phone] Prior Authorization Social History Tobacco Use Types [...] on filedocumented in this encounter Care Teams Parts Specialist Relationship Specialty Start Date End Date Janice Mulligan BDS [address] [place] [phone] PCP - General Dental Plastics Design Engineer 05/29/24 documented as of this encounter
--- OUTSIDE RECORDS SUMMARY | 2025-01-06 12:15 | XMS_ITS | Encounter Summary ---
Author Organization [facility] [employer] Address [address] [place] [address] Care Team Providers Care Chief Crna Name Role Phone Janice Mulligan BDS Primary Care Provide r Reason for Visit * Reason Onset Date Comments needs appt 12/29/2023 Encounter Details Date Type Department Care Team (Late st Contact Info) Description 12/29/2023 Telephone [facility] [address] [place] [address] Janice Mulligan BDS [address] [place], [place] [phone] needs appt Social History Tobacco Use Types [...] appt remade after it was cancelled by [facility] for crown. Someone told hi he was going to get a call back and never did. Please reach out to patient to make appt. Thank you CS documented in this encounter Plan of Treatment Not on file documented as of this encounter Visit Diagnoses Not on filedocumented in this encounter Care Teams Chief Crna Relationship Specialty Start Date End Date Janice Mulligan BDS [address] [place] [address] PCP - General Dental Banquet Pilot 05/29/24 documented as of this encounter
--- OUTSIDE RECORDS SUMMARY | 2025-01-06 12:15 | XMS_ITS | Clinical Summary ---
Author Organization [facility] Address [address] [place] [address] Care Team Providers Care Radio Repair Teacher Name Role Phone Unavailable Primary Care Provider Unavailabl e Social History Tobacco Use Types Packs/Day Years Used Date Smoking Tobacco: Never Assessed Comments Unknown Sex and Gender Information Value Date Recorded Sex Assigned at Not on file Legal Sex Female 6:43 PM EST Gender Identity Not on file Sexual Orientation Not on file Plan of Treatment Health Maintenance Due Date Last Done Comments Advance Care Planning 1955 Hepatitis C Virus Screening 1955 DTaP/Tdap/Td Vaccines (1 - Tdap) 1973 Pneumococcal Vaccines 50+ (1 of 1 - PCV) 2004 Zoster (Shingles) Vaccine (1 of 2) 2004 COVID-19 Vaccine ( - 2023-2 5 season) 2024 RSV Vaccine 60 years and old er and Patients (1 - 1-dose 75+ series) 2029 Hepatitis B Vaccines Aged Out No long er eligible based on patient's age to complete this topic
--- OUTSIDE RECORDS SUMMARY | 2025-01-06 12:15 | XMS_ITS | Encounter Summary ---
Author Organization [employer] Address [address] [facility] 7t h Floor [place] [id number] Care Team Providers Care Atmospheric Physics Professor Name Role Phone Janice Mulligan BDLuis Primary Care Provide r Encounter Details Date Type Department Care Team (Latest Contact Info) Description 06/17/2020 Abstract [facility] CONVERSIONS Dental, Provider, DDS Social History [...] on filedocumented in this encounter Care Teams Atmospheric Physics Professor Relationship Specialty Start Date End Date Janice Mulligan BDS [address] [place] [phone] PCP - General Dental Plastic Surgery Manager 05/29/24 documented as of this encounter
--- OUTSIDE RECORDS SUMMARY | 2025-01-06 12:15 | XMS_ITS | Encounter Summary ---
Author Organization [employer] Address [address] [facility] 7t h Floor [place] [id number] Care Team Providers Care Filling Machine Tender Name Role Phone Janice Mulligan BDLuis Primary Care Provide r Encounter Details Date Type Department Care Team (Latest Contact Info) Description 12/27/2021 Abstract [facility] CONVERSIONS Dental, Provider, DDS Social History [...] on filedocumented in this encounter Care Teams Filling Machine Tender Relationship Specialty Start Date End Date Janice Mulligan BDS [address] [place] [phone] PCP - General Dental Activities Manager 05/29/24 documented as of this encounter
--- OUTSIDE RECORDS SUMMARY | 2025-01-06 12:15 | XMS_ITS | Encounter Summary ---
Author Organization [employer] Address [address] [facility] 7t [place] [address] Care Team Providers Care Nutrient Management Specialist Name Role Phone Janice Mulligan BDS Primary Care Provide r Reason for Visit * Reason Onset Date Comments appt 05/23/2023 Encounter Details Date Type Department Care Team ([facility] Contact Info) Description 05/23/2023 Telephone [facility] [address] [place], [place] [phone] Janice Mulligan BDS [address] [place], [place] [phone] appt Social History Tobacco Use Types Packs/Day [...] not sure how to schedule crowns in [place] but it is requested to be with Dr. Hodge. Pls contact patient documented in this encounter Plan of Treatment Not on file documented as of this encounter Visit Diagnoses Not on filedocumented in this encounter Care Teams Nutrient Management Specialist Relationship Specialty Start Date End Date Janice Mulligan BDS [address] [place] [phone] PCP - General Dental Mexican Food Maker 05/29/24 documented as of this encounter
--- OUTSIDE RECORDS SUMMARY | 2025-01-06 12:15 | XMS_ITS | Clinical Summary ---
Author Organization [address] [facility] Address [address] [place] [address] Phone Care Team Providers Care Business Machine Operator Name Role Phone Alissa Parker Primary Care Provider [phone] Allergies Active Allergy Reactions Criticality Noted Date Comments Penicillins Rash 04/26/2019 Medications ammonium lactate (LAC-HYDRIN) 12 % lotion Apply to soles of feet daily. At night wear socks to bed 03/14/2023 Active aspirin 81 mg EC tablet Take 1 Tablet by mouth daily. 05/25/2022 Active atorvastatin (LIPITOR) 20 mg tablet Take 20 mg by mouth daily. Active miscellaneous medical supply [facility] B-D 3CC LUER-SAV SYR 25GX1 25G X 1 3 ML [facility] 06/27/2022 Active pen needle,diabetic dual safty [...] appointment with Dr. Bauman in 3 months. Surgical History Surgery Date Site/Laterality Comments CATARACT EXTRACTION PROCEDURE: HISTORICAL CATARACT REMOVAL SECTION PROCEDURE: AR DELIVERY ONLY HYSTERECTOMY PROCEDURE: HISTORICAL HYSTERECTOMY APPENDECTOMY PROCEDURE: HISTORICAL APPENDECTOMY Medical History Medical History Date Comments Essential (primary) hypertension DX:Essential (primary) hypertension Type 2 diabetes mellitus wit hout complications ([facility] V24, [facility] V28) DX:Type 2 miguelangel betes mellitus without complications ([facility]) Osteoarthritis DX:Osteoarthriti s Social History Tobacco Use [...] - - Weight 83.9 kg (185 lb) 09/03/2024 8:51 AM EDT Height 154.9 cm (5' 0.98 ) 09/03/2024 8:51 AM ED T Body Mass Index 34.97 09/03/2024 8:51 AM EDT Plan of Treatment Health Maintenance [...] 03/15/2022 Social Influencers of Health Screening 03/15/2022 Depression Screening 04/17/2024 Diabetes: Annual Urine Albumin-Creatinine Ratio (uACR) 08/24/2024 08/25/2023, 08/25/2023, 02/22/2023, Additional history exists Diabetes: Blood Sugar Control Test (HGBA1C) 11/18/2024 05/21/2024, 08/25/2023 COVID-19 Vaccine ( season) 2024 Influenza Vaccine (#1) 2024 Diabetes: Annual GFR (Glomerular Filtration Rate) 05/21/2025 [...] Results * Urine Albumin Creatinine Ratio (08/25/2023) Pathologist [facility] Urine Albumin Creatinine Ratio abstracted Result [facility] Provider HEALTH MAINTENANCE Final Result * Annual BMP Blood Test (08/25/2023) Pathologist [facility] Annual BMP Blood Test abstracted [facility] Provider HEALTH MAINTENANCE Final Result * Lipid panel (08/25/2023) Pathologist [facility] LDL/HDL Ratio 0 Comment:no interpretation Triglycerides 0 mg/dL Comment:no interpretation Cholesterol 0 mg/dL Comment:no interpretation HDL 0 mg/dL Comment:no interpretation LDL Cholesterol 0 mg/dL Comment:no interpretation Blood Venous blood specimen / Unknown Result [facility] Provider LAB BLOOD ORDERABLES Katelyn l Result from Last 3 Months or Most Recently Relevant to Health Maintenance Insurance [employer] MEDICARE Member Subscriber Plan / Payer (Ef fective 2020-Present) Name:Teri Melendez Relation to Subscriber:Self Name:Karenmoose Teri Payer ID:[id number] Group ID:[id number] Type:Not on file Address: [address] [place] [address] Care Teams Business Machine Operator Relationship Specialty Start Date End Date Alissa Parker PA [address] [place] [phone] PCP - General Internal Medicine 06/11/15
--- OUTSIDE RECORDS SUMMARY | 2025-01-06 12:15 | XMS_ITS | Encounter Summary ---
Author Organization [employer] Address [address] [facility] 7t h Floor [place] [phone] Care Team Providers Care Informatica Mdm Developer Name Role Phone Janice Mulligan BDLuis Primary Care Provide r Encounter Details Date Type Department Care Team (Latest Contact Info) Description 10/25/2018 Abstract [facility] CONVERSIONS Dental, Provider, DDS Social History [...] on filedocumented in this encounter Care Teams Informatica Mdm Developer Relationship Specialty Start Date End Date Janice Mulligan BDS [address] [place] [phone] PCP - General Dental Pulp Mixer 05/29/24 documented as of this encounter
--- OUTSIDE RECORDS SUMMARY | 2025-01-06 12:15 | XMS_ITS | Clinical Summary ---
Author Organization [email or web address] Address [address] [facility] [address]t [place] [address] Care Team Providers Care Social Media Campaign Manager Name Role Phone Janice Mulligan BDLuis Primary Care Provide r Allergies Active Allergy [...] Take by mouth in the morning. Active Social History Tobacco Use Types Packs/Day Years [...] Additional history exists COVID-19 Vaccine ( season) 2024 Influenza Vaccine (#1) 2024 Tobacco Screening 07/09/2025 07/09/2024 Dental X-Ray: Full [...] Procedure Name Priority Date/Time Associated Diagnosis Comments PANORAMIC RADIOGRAPHIC IMAGE Routine 03/15/2023 8:00 AM EST PROPHYLAXIS - ADULT Routine 12/27/2021 1 2:00 AM EDT BITEWINGS - 4 RADIOGRAPHIC IMAGES Routine 12/27/2021 12:00 AM EDT PERIODIC ORAL EVALUATION - ESTABLISHED PATIENT Routine 12/27/2021 12:00 AM EDT from Last 3 Months or Most Recently Relevant to Health Maintenance Insurance [facility] Care Teams Social Media Campaign Manager Relationship Specialty Start Date End Date Janice Mulligan BDS [address] [place] [address] PCP - General Dental Car Seat Upholsterer 05/29/24
== END 2025-01-06 11:25 | disposition home or self-care (01) ==
LOC: HO.PMC 10:00
PROVIDERS: PCP Physician Assistant; Visit Provider Nurse Practitioner Family
DX: E11.40 Type 2 diabetes mellitus with diabetic neuropathy, unspecified (principal); M79.671 Pain in right foot; M79.672 Pain in left foot; Z91.81 History of falling; J45.909 Unspecified asthma, uncomplicated; J98.11 Atelectasis; M50.30 Other cervical disc degeneration, unspecified cervical region; M51.369 Other intervertebral disc degeneration, lumbar region without mention of lumbar back pain or lower extremity pain; M47.816 Spondylosis without myelopathy or radiculopathy, lumbar region
CPT/HCPCS: 17999; 99214; G2211

== ENCOUNTER → 2025-01-06 11:38 | Outpatient (BNV) | payer OTHER, SELFPAY | PROVIDERS: PCP Physician Assistant; Visit Provider Radiology Diagnostic Radiology | DX: J84.10 Pulmonary fibrosis, unspecified (principal); S92.512D Displaced fracture of proximal phalanx of left lesser toe(s), subsequent encounter for fracture with routine healing; M19.071 Primary osteoarthritis, right ankle and foot; M19.072 Primary osteoarthritis, left ankle and foot | CPT/HCPCS: 71046; 73630 ==

== ENCOUNTER 2025-03-17 08:59 | Outpatient (AMB) | payer OTHER, SELFPAY ==
--- OUTSIDE RECORDS SUMMARY | 2024-12-11 19:00 | XMS_ITS | Continuity of Care Document ---
Author Organization [facility], [facility] Address [address] [place] [phone] Phone Care Team Providers Care Sql Data Analyst Name Role Phone Hanh MARIN, Onhandy Unavailable Unavailable Procedures Procedure Date MYOCRD IMG PET RST&STRS CT CARDIOVASCULAR STRESS TEST CARDIOVASCULAR STRESS TEST ECHO 2D W/DOPPLER Advance Directives Directive Yes / No Effective Date File Name No Information Encounters Encounter Description Practice Location Reason(s) For Visit Diagnoses Date Provider Providers Copied on Encounter [facility], [facility], [address] [place] [address], [id number], [place] tel:[phone] [facility] OP No Information Hanh Martinez. [address] [place] [address], [id number], . tel:[phone] Referring Provider: Bakari Mcdonald, [address] [place], [place] [address], [address]. tel:[phone] Family History Family Member Type Diagnosis Age At Onset No Information Payers Payer name Insurance type Covered republican ID Authoriza tion(s) No Information Social History Type Description Quantity Date Captured Comments Sex Female Smoking Status No Information Chief Complaint And Reason For Visit No Information Reason For Referral Reason For Referral No Information History Of Present Illness Encounter Date Complaint History Of Prese nt Illness No Information Functional Status Date Functional Assessmen t No Information Instructions Date Instruction Additional Infor mation No Information Assessments Type Assessment Date No Information Patient Care Teams Name Effective Dates (start - stop) Status Members No Information
--- NOTE | 2025-03-17 09:00 | MHC.OFFVIS ---
Vital Signs 03/17/25 09:01 03/17/25 09:45 03/17/25 10:10 Height 5 ft 2 in Weight 195 lb BMI 35.7 BP 186/77 H 220/99 H 190/85 H Blood Pressure Location Lt brachial Lt brachial Rt brachial Position Sitting Sitting Sitting Respiration 16 16 16 Pulse 77 78 78 Pulse Source Pulse Oximeter Pulse Oximeter Pulse Oximeter Pulse Oximetry (%) 96 99 100 Oxygen Delivery Method Room Air Room Air Room Air Intake Visit Reasons: Qutenza Intake Note: Patient did not take her BP medication this morning, denies chest pain, dizziness, lightheadedness, nausea, shortness of breaths, chest tightness or pressure or visual changes. Silk Screen Printer Helper Required: Yes Silk Screen Printer Helper Language: Singaporean Silk Screen Printer Helper Services: Silk Screen Printer Helper Offered & Declined Silk Screen Printer Helper Name: Provider is fluent in Singaporean Information Interpreted: non-clinical & clinical Accompanied by: Daughter Allergies Penicillins Allergy (Unknown, Verified 03/17/25 09:01) Rash HPI Comments Details: Patient presents for application of capsaicin 8% topical patch for diabetic neuropathy in bilateral feet. Patient is accompanied by her daughter Jeanette. Patient reports chronic numbness and burning sensation in bilateral legs, exacerbating at night. This condition has been chronic and persisted for over 3 years, partially elevated with topical capsaicin applications. Her diabetic state is uncontrolled, with a hemoglobin A1C of 9.1 (decrease from 10.8%, despite dietary compliance, Ozempic and insulin therapy, dietary restrictions). She reports recent eye exam was noted for diabetic retinopathy. Patient also reports intermittent lumbar radicular symptoms with shooting pain into her left anterior thigh accompanied by cramps and spasms, chronic tingling and numbness in both legs and feet with associated heaviness with walking and increased radicular symptoms with prolonged walking. Previous spine imaging noted for multilevel disc degeneration, spondylosis, and spinal stenosis for cervical and lumbar spine. Denies bladder or bowel dysfunction or saddle anesthesia. Denies any recent cough, cold, infection, fever or any other significant changes in medical history since last office visit. PRIOR: Patient presents today for follow up for worsening chronic lower back pain. She is accompanied by her daughter. Patient ambulates slowly with use of walker. She continues to experience spinal stenosis-related pain in right L5-S1 distribution. She is sitting with bending forward position to relieve her radicular pain. She has numbness and tingling in her bilateral lower legs and feet due to diabetic neuropathy but also increased heaviness and numbness in her RLE with walking or standing. Qutenza (capsaicin 8%) patch has been approved and we will schedule her in office application. EMLA cream script was sent to her pharmacy. Patient reports she recently completed oral prednisone taper through her PCP office. Patient's daughter reports most recent A1C was elevated, over 9.0. Patient is poor candidate for steroid therapy. She has completed lumbar spine MRI on 06/12/22 ordered by her PCP. These results are not available today. We reviewed records from [facility] and lumbar spine MRI with significant changes at L5-S1 level as noted below. Patient reports she was seeing chiropractor for chronic lower back pain in 2019 and after therapy, she developed severe left sided pain with sciatica and could not walk. The MRI in 2019 was completed after chiropractic session. Patient reports she was referred to neurosurgery but contracted COVID illness and was hospitalized for 21 days at [facility], including intubation. Patient reports she has completed PT since then and has been referred back to PT. PRIOR: Patient is a pleasant 66 years old Singaporean speaking female who presents with chronic peripheral neuropathy in both of her feet and hands, bilateral shoulder pain and chronic back pain. She attributes her pain symptoms to degenerated discs in her spine, diabetes and arthritis. Denies any recent trauma, injury or falls. Patient reports she has been diabetic for over 25 years and her most recent A1C has been around 9. She reports hot burning, numbness and tingling with decreased sensation in her feet, mostly no sensation in her toes that happen to cramp and lock in frequently. Patient reports she used to follow Dr. Rizvi for back pain in the past for history of lumbar disc protrusions and herniations, spinal stenosis with consideration of back surgery but has declined it in 2019. Patient also states she had an unpleasant experience with an attempt for lumbar ALVERTO and had to abort her procedure due to significant pain. Patient reports progressive back and leg pain, worse with walking. She states the back pain radiates across her low back and radiates down the anterior legs to shins on the right side. Her symptoms worsen with walking or standing for 5 or less minutes. Patient reports increased pain in her shoulders with overhead arm use. Pain is described as constant dull, sore, hurting, aching, heavy, punishing, killing, tugging, pulling, wrenching, tiring, exhausting, hot burning, scalding, searing, tingling and stinging. Patient is using a walker with ambulation and reports that while walking she has to stop and take breaks frequently. She also reports using a commode at night. Patient notes partial pain relief with leaning forward. She rates her pain 7-8/10 on average doing small things around the house and 9-10/10 when walking. Patient denies any fever, abdominal or groin pain, weight changes, bowel/bladder incontinence or saddle anesthesia. Patient reports she completed many sessions of PT and HEP which was helpful for short term pain relief. She also uses the TENS unit. Patient has been taking Ibuprofen, diclofenac gel and lidocaine patches with minimal pain relief. She wears customized shoes and reports undergoing a diabetic foot exam annually. Patient reports she completed lumbar spine MRI and xrays at [facility] within the past 2 years. These results are not available for review today. Lumbar spine MRI done in 2005 showed minimal disc bulging at L4-5. [facility] Medical History Asthma Chronic midline low back pain with right-sided sciatica Onychomycosis Essential hypertension Lumbar radiculopathy, chronic Chronic painful diabetic neuropathy Review of Systems Const All systems reviewed & are unremarkable except as noted in HPI and below Physical Exam Vital Signs: Last Vital Signs Pulse 77 03/17/25 09:01 Resp 16 03/17/25 09:01 BP 186/77 H 03/17/25 09:01 Pulse Ox 96 03/17/25 09:01 Oxygen Delivery Method Room Air 03/17/25 09:01 BMI result Body Mass Index 35.7 General: Appears afebrile. Alert and oriented. Mood and affect appropriate. Follows and participates in conversation appropriately. Respiratory effort is unlabored. No cough. Able to transition from sit to stand with the use of walker. Ambulates with bilaterally normal heel strike and toe off. Eyes General: appearance normal, both eyes and all related structures Visual Salazar: normal visual salazar by confrontation Pupils: Equal, round and reactive pupils present Resp Effort & Inspection: normal respiratory effort, no cough, no respiratory distress and symmetric chest movement Cardio Jugular venous distension: no JVD Palpation: normal PMI Rate: regular rate Rhythm: regular rhythm Peripheral pulses: Peripheral pulses 2+ throughout General: Yes no CVA tenderness Back/Spine/Pelvis Back: no CVA tenderness Cervical Spine: cervical ROM normal and No Cervical spine tenderness Thoracic/Lumbar Spine: thoracic and lumbar spine normal to inspection, Lasegue's sign positive bilateral and diffuse, pain with thoraco-lumbar ROM, paraspinal muscle tenderness, thoraco-lumbar ROM limited, No thoracic spinal tenderness and lumbar spinal tenderness (L4-S1) Sacroiliac joints: bilaterally tender to palpation Neuro Cranial nerves: Yes Equal, round and reactive pupils present Extrem Other: There is decreased sensation over the soles of the feet and toes. No soft tissue swelling, redness or warmth. Toes with full ROM bilaterally. Normal capillary refill. No pedal edema. No calf tenderness. Pulses +2 throughout bilaterally. Office Procedures Topical Capsaicin Date(s) of prior application(s): See EMR for previous applications, most recent December 2024 Main area of pain on the body: Bilateral feet and toes Laterality: Bilateral Location of left foot pain: Anterior, Posterior, Plantar, Proximal, Dorsal, Medial, Lateral and Distal Location of right foot pain: Anterior, Posterior, Plantar, Dorsal, Medial, Lateral and Distal Quality of pain: Aching, Nagging, Burning, Numb-like and Penetrating Details:: Two patches, 560 cm2 were utilized per each foot. EMLA Cream (lidocaine 2.5% and prilocaine 2.5%) was not applied at home by patient prior to application of the patches. Patient elected to proceed with the procedure without EMLA cream. The patient tolerated the procedure well. Patient?s vitals signs remained stable throughout the procedure. Patient was able to complete the stipulated 30 minutes of the therapeutic application without any discomfort. Office Meds capsaicin-skin cleanser 8 % topical kit Performing Provider: DONALD Espinosa Performing Location: [facility] Administered by: DONALD Espinosa on 03/17/25 09:30 Dose Route Admin Location Dispensed Lot Number Expiration Date NDC Telephone Station Installer 4 ea topical [facility] 4 ea [id number] 03/17/26 [id number] [employer] Total Dispensed Waste 4 ea 0 % Results Reviewed Results Reviewed: MR BRAIN without CONTRAST 05/15/24 at [facility] INDICATION: Headache, unspecified. Other cervical disc degeneration, unspecified cervical region. Cervical region radiculopathy. Neck and lower back burning, stabbing and pulling pain for over one year. Additional History: Arthritis. TECHNIQUE: Multi-planar, multi-sequence MR imaging of the brain was performed without contrast. COMPARISON: None Available. FINDINGS: Diffusion-weighted imaging demonstrates no area of restricted diffusion to suggest acute infarction. There is no intracranial hemorrhage, midline shift, mass effect, or extra-axial fluid collection. There are mild scattered patchy areas of T2 prolongation within the subcortical and deep periventricular white matter, suggesting changes of chronic microvascular ischemia. Brain parenchyma otherwise demonstrates normal morphology and signal characteristics. Midline structures are within normal limits. Major intracranial vessels demonstrate preserved flow voids. Brain volume and ventricular system are within normal limits for age. Visualized paranasal sinuses are unremarkable. Orbits, globes, and mastoid air cells are unremarkable. IMPRESSION: No acute intracranial finding. MR SPINE CERVICAL without CONTRAST 05/15/24 INDICATION: Other cervical disc degeneration, unspecified cervical region. Cervical region radiculopathy. Headache, unspecified. Neck and lower back burning, stabbing and pulling pain for over one year. Additional History: Arthritis. TECHNIQUE: Unenhanced multiplanar, multisequence MR imaging of the cervical spine. COMPARISON: None Available. FINDINGS: Normal cervical alignment is demonstrated. Vertebral heights are well maintained. Craniocervical junction is unremarkable. Bone marrow signal is within normal limits, and no suspicious osseous lesion is identified. Prevertebral and paraspinal soft tissues are within normal limits. Visualized portions of the posterior fossa are unremarkable. Cervical cord demonstrates normal course, caliber, and signal characteristics. No epidural fluid collection or hematoma is identified. At C2-3 there is no significant disc herniation or protrusion. No central canal or neural foraminal stenosis is demonstrated. At C3-4 disc-osteophyte complex with duki-gj-cpjnhjok canal narrowing and hcop-gp-dekadliq bilateral foraminal narrowing. At C4-5 disc osteophyte complex with xyuilafz-yv-erodhf canal stenosis and at least moderate bilateral foraminal narrowing. At C5-6 disc-osteophyte complex with moderate canal narrowing and qhvpqcuv-id-lxgaou bilateral foraminal narrowing. At C6-7 disc-osteophyte complex with wdxr-jd-obazuxig canal narrowing and wbshxsqf-dz-bcntkq bilateral foraminal narrowing. At C7-T1 disc-osteophyte complex with deha-zs-pcmtagfe canal narrowing and mild bilateral foraminal narrowing. IMPRESSION: 1.Vkwm-ou-niifpgmb multilevel degenerative disc disease with loss of disc height and disc desiccation seen diffusely throughout the cervical spine. 2.Vertebral heights are preserved. No malalignments. 3.Disc-osteophyte complex formation with multilevel canal stenosis, piyafubx-vy-dlxvsd at C4-5 level, moderate at C5-6 level. No evidence of disc herniation. 4.Disc-osteophyte complex formation with multilevel foraminal narrowing as above, weccjuio-dp-vgdeno at C5-6 and C6-7 levels. 5.No STIR signal abnormality to suggest bone marrow edema, soft tissue or ligamentous injury. XR FOOT 3 OR MORE VIEWS BILATERAL, bilateral foot x-rays 01/06/25 TECHNIQUE: X-ray lower extremity, bilateral feet INDICATION: Foot pain COMPARISON: None available. FINDINGS: RIGHT FOOT: There are mild degenerative changes with mild joint space narrowing and small marginal osteophytes involving the IP joints of the toes and first and fifth MTP joints. There are small calcaneal enthesophytes at the plantar fascia and Achilles tendon attachment. LEFT FOOT: There is lucency through the heads of the second proximal phalanx with periosteal new bone formation extending proximally along the diaphysis consistent with a healing subacute fracture. There is diffuse osteopenia. There is mild to moderate narrowing of the inner phalangeal joints of the toes and minimal narrowing and small marginal ossified involving first MTP joint. There are calcaneal enthesophytes at the plantar fascia and Achilles attachments. IMPRESSION: Right foot: Mild to moderate degenerative changes. Left foot: Healing fracture of the second proximal phalanx head. Suwb-ze-wppokiba degenerative changes. Assessment & Plan Assessment & Plan (1) Chronic painful diabetic neuropathy: Code(s): E11.40 - Type 2 diabetes mellitus with diabetic neuropathy, unspecified Category: Medical (2) Bilateral foot pain: Code(s): M79.671 - Pain in right foot; M79.672 - Pain in left foot Category: Medical (3) Degenerative disc disease, cervical: Code(s): M50.30 - Other cervical disc degeneration, unspecified cervical region Category: Medical (4) Lumbar degenerative disc disease: Code(s): M51.36 - Other intervertebral disc degeneration, lumbar region Category: Medical (5) Lumbar spondylosis: Code(s): M47.816 - Spondylosis without myelopathy or radiculopathy, lumbar region Category: Medical Plan Patient is status post application of topical capsaicin 8% for diabetic neuropathy in bilateral feet. She continues to reports this has been effective for symptomatic relief of chronic diabetic neuropathy in her feet, especially during nighttime. Patient tolerated the procedure without significant discomfort. Patient was advised to take BP medication as soon as she arrives home and for symptomatic elevated BP, seek medical evaluation at ER and follow up with her PCP. Patient was discharged home in stable condition with discharge instructions. Follow up in 3 months for Qutenza and sooner as needed. Patient was informed and verbally consented to the use of an ambient scribe for clinic note documentation during this visit. I hereby testify that I spent 40 minutes in conversation with this patient as well as with planning and coordinating care for this patient and organizing this note. Orders: Orders AMB Capsaicin Patch - Practice Supplied Today E11.40 - Type 2 diabetes mellitus with diabetic neuropathy, unspecified Coding Level of Care Code Est Pt Level 4 (05526) Complex visit Add On G2211 Diagnoses Chronic painful diabetic neuropathy E11.40 Bilateral foot pain M79.671; M79.672 Degenerative disc disease, cervical M50.30 Lumbar degenerative disc disease M51.36 Lumbar spondylosis M47.816
[2025-03-17 09:01] VITALS: BP 186/77; PULSE 77; RESP 16; O2SAT 96; BMI 35.7
[2025-03-17 09:45] VITALS: BP 220/99; PULSE 78; RESP 16; O2SAT 99
[2025-03-17 10:10] VITALS: BP 190/85; PULSE 78; RESP 16; O2SAT 100
--- OUTSIDE RECORDS SUMMARY | 2025-03-17 10:16 | XMS_ITS | Encounter Summary ---
Author Organization [employer] Address [address] [facility] 7t [place] [address] Care Team Providers Care Interlocking And Signal Mechanic Name Role Phone Janice Mulligan BDLuis Primary Care Provide r Reason for Visit * Reason Onset Date Comments appt 12/28/2023 Encounter Details Date Type Department Care Team ([facility] Contact Info) Description 12/28/2023 Telephone [facility] [address] [place], [place] [phone] Janice Mulligan BDS [address] [place], [place] [phone] appt Social History Tobacco Use Types Packs/Day [...] 1pm. There was an error in scheduling. front desk person in [facility] will reach out to patient to rs appt DR documented in this encounter Plan of Treatment Upcoming Encounters Date Type Department Care Team ([facility] Contact Info) Description 03/19/2025 3:00 PM EST Office Visit [facility] [address] [place] [address] Solitario Shirley DDS [address] [place] [address] documented as of this encounter Visit Diagnoses Not on filedocumented in this encounter Care Teams Interlocking And Signal Mechanic Relationship Specialty Start Date End Date Janice Mulligan BDS [address] [place] [phone] PCP - General Dental Stock Supervisor 05/29/24 documented as of this encounter
--- OUTSIDE RECORDS SUMMARY | 2025-03-17 10:16 | XMS_ITS | Encounter Summary ---
Author Organization [employer] Address [address] [facility] [address] 7[address] [place] [address] Care Team Providers Care Can Dragger Name Role Phone Janice Mulligan BDS Primary Care Provide r Reason for Visit * Reason Onset Date Comments needs appt 12/29/2023 Encounter Details Date Type Department Care Team (Late Contact Info) Description 12/29/2023 Telephone [facility] [address] [place] [address] RembertopatjesusJanice BDS [address] [place], [place] [phone] needs appt Social History Tobacco Use Types [...] appt remade after it was cancelled by [facility] for crown. Someone told hi he was going to get a call back and never did. Please reach out to patient to make appt. Thank you CS documented in this encounter Plan of Treatment Upcoming Encounters Date Type Department Care Team (Late Contact Info) Description 03/19/2025 3:00 PM EST Office Visit [facility] [address] [place] [address] Solitario Shirley DDS [address] [place] [address] documented as of this encounter Visit Diagnoses Not on filedocumented in this encounter Care Teams Can Dragger Relationship Specialty Start Date End Date Janice Mulligan BDS [address] [place] [phone] PCP - General Dental Entrepreneurial Finance Professor 05/29/24 documented as of this encounter
--- OUTSIDE RECORDS SUMMARY | 2025-03-17 10:16 | XMS_ITS | Encounter Summary ---
Author Organization [employer] Address [address] [facility] 7t [place] [address] Care Team Providers Care Elevator Constructor Hydraulic Name Role Phone Janice Mulligan BDS Primary Care Provide r Encounter Details Date Type Department Care Team (Latest Contact Info) Description 10/25/2018 Abstract [facility] CONVERSIONS Dental, Provider, DDS Social History [...] Care Team (Late st Contact Info) Description 03/19/2025 3:00 PM EST Office Visit [facility] [address] [place] [address] Solitario Shirley DDS [address] [place] [address] documented as of this encounter Visit Diagnoses Not on filedocumented in this encounter Care Teams Elevator Constructor Hydraulic Relationship Specialty Start Date End Date Janice Mulligan BDS [address] [place] [phone] PCP - General Dental Outsole Handler 05/29/24 documented as of this encounter
--- OUTSIDE RECORDS SUMMARY | 2025-03-17 10:16 | XMS_ITS | Encounter Summary ---
Author Organization [employer] Address [address] [facility] 7t [place] [address] Care Team Providers Care Baseball Sewer Hand Name Role Phone Janice Mulligan BDLuis Primary Care Provide r Reason for Visit * Reason Onset Date Comments Prior Authorization 10/02/2023 Encounter Details Date Type Department [facility] Description 10/02/2023 Telephone [facility] [address] [place], [place] [phone] Janice Mulligan BDS [address] [place], [place] [phone] Prior Authorization Social History Tobacco Use Types [...] Upcoming Encounters Date Type Department Care Team ([facility] st Contact Info) Description 03/19/2025 3:00 PM EST Office Visit [facility] [address] [place] [address] Solitario Shirley DDS [address] [place] [address] documented as of this encounter Visit Diagnoses Not on filedocumented in this encounter Care Teams Baseball Sewer Hand Relationship Specialty Start Date End Date Janice Mulligan BDS [address] [place] [phone] PCP - General Dental Sales Coach 05/29/24 documented as of this encounter
--- OUTSIDE RECORDS SUMMARY | 2025-03-17 10:16 | XMS_ITS | Clinical Summary ---
Author Organization [facility] Address [address] [place] [address] Care Team Providers Care Human Intelligence Name Role Phone Unavailable Primary Care Provider [...] - 2023-2 5 season) 2024 RSV Vaccine 50 years and old er and Patients (1 - 1-dose 75+ series) 2029 Hepatitis B Vaccines Aged Out No long er eligible based on patient's age to complete this topic
--- OUTSIDE RECORDS SUMMARY | 2025-03-17 10:16 | XMS_ITS | Encounter Summary ---
Author Organization [employer] Address [address] [facility] [address] [place] [address] Care Team Providers Care Documentum Consultant Name Role Phone ValeriajesusJanice BDS Primary Care Provide r Reason for Visit * Reason Onset Date Comments appt 05/23/2023 Encounter Details Date Type Department Care Team (Late Contact Info) Description 05/23/2023 Telephone [facility] [address] [place], [place] [phone] Ese Janice BDS [address] [place] [address] appt Social History Tobacco Use Types Packs/Day [...] not sure how to schedule crowns in [place] but it is requested to be with Dr. Hodge. Pls contact patient documented in this encounter Plan of Treatment Upcoming Encounters Date Type Department Care Team (Late Contact Info) Description 03/19/2025 3:00 PM EST Office [facility] [address] [place] [address] Solitario Shirley DDS [address] [place] [address] documented as of this encounter Visit Diagnoses Not on filedocumented in this encounter Care Teams Documentum Consultant Relationship Specialty Start Date End Date Janice Mulligan BDS [address] [place] [phone] PCP - General Dental Marine Tower Operator 05/29/24 documented as of this encounter
--- OUTSIDE RECORDS SUMMARY | 2025-03-17 10:16 | XMS_ITS | Encounter Summary ---
Author Organization [employer] Address [address] [facility] 7t [place] [address] Care Team Providers Care Food Service Representative Name Role Phone Janice Mulligan BDS Primary Care Provide r Encounter Details Date Type Department Care Team (Latest Contact Info) Description 12/27/2021 Abstract [facility] CONVERSIONS Dental, Provider, DDS Social [...] Description 03/19/2025 3:00 PM EST Office Visit [facility] [address] [place] [address] Solitario Shirley DDS [address] [place] [address] documented as of this encounter Visit Diagnoses Not on filedocumented in this encounter Care Teams Food Service Representative Relationship Specialty Start Date End Date Janice Mulligan BDS [address] [place] [address] [phone] PCP - General Dental Route Rider 05/29/24 documented as of this encounter
--- OUTSIDE RECORDS SUMMARY | 2025-03-17 10:16 | XMS_ITS | Clinical Summary ---
Author Organization [employer] Address [address] [facility] 7t [place] [address] Care Team Providers Care Overcoiler Name Role Phone Janice Mulligan BDLuis Primary Care Provide r Allergies Active Allergy Reactions Criticality Noted Date Comments Dulaglutide Itching 11/07/2014 Egg Protein (Egg White) High 08/20/2021 Rash Penicillins 11/06/2012 Medications Alcohol [...] Take by mouth in the morning. Active Active Problems No known active problems Encounters Date Type Department Care Team Description 03/07/2025 11:00 AM EST Office Visit [facility] ADULT DENTAL [address] [place] [address] Solitario Shirley DDS from Last 3 Months Social History Tobacco Use Types Packs/Day Years Used Date Smoking Tobacco: Never Smokeless Tobacco: Never Tobacco Cessation:Counseling Given: Not Answered Alcohol Answer Date Recorded How often do you have a drink containing alcohol ? 0 03/07/2025 How many drinks containing a lcohol do you have on a typical day when you are drinking? 0 03/07/2025 How often do you have six or more drinks on one occasion? 0 03/07/2025 Comments Unknown Sex and Gender Information Value [...] Description 03/19/2025 3:00 PM EST Office Visit [facility] ADULT DENTAL [address] [place] [address] Solitario Shirley, SUSANNE [address] [place] [address] Health Maintenance Due Date Last Done Comments CT Colonography 1954 Colonoscopy 1954 Colorectal Cancer Screening 1954 Depression Screening 1954 FIT DNA/Cologuard 1954 FIT 1954 FOBT 1954 Lipid Panel 1954 SDOH Screening 1954 Sigmoidoscopy 1954 Hepatitis C Screening 1972 DTaP/Tdap/Td Vaccines (1 - Tdap) 1973 Pneumococcal Vaccine: 50+ Years (1 of 2 - PCV) 1973 Mammogram 1994 RSV Patients and Patients Aged 60 years or older (1 - Risk 50-74 years 1-dose series) 2004 Zoster Vaccines (1 of 2) 2004 Dental Prophylaxis 06/27/2022 12/27/2021, 0 06/17/2020, 04/30/2019, Additional history exists Dental X-Ray: Bitewings 12/28/2022 12/28/19 22, 05/27/2020, 01/10/2020, Additional history exists COVID-19 Vaccine ( season) 2024 Influenza Vaccine (#1) 2024 Dental Oral Exam 09/05/2025 03/07/2025, 03/2022, 06/17/2020, Additional history exists Alcohol/Substance Use Screening 03/07/2026 03/07/2025 Tobacco Screening 03/07/2026 03/07/2025 Dental X-Ray: Full Mouth 03/16/2026 023, 10/27/2020, [...] Procedure Name Priority Date/Time Associated Diagnosis Comments CASE PRESENTATION, DETAILED AND EXTENSIVE TREATMENT PLANNING Routine 03/07/2025 11:00 AM EST PERIODIC ORAL EVALUATION - ESTABLISHED PATIENT Routine 03/07/2025 11:00 AM EST PANORAMIC RADIOGRAPHIC IMAGE Routine 03/15/2023 8:00 AM EST PROPHYLAXIS - ADULT Routine 12/27/2021 1 2:00 AM EDT BITEWINGS - 4 RADIOGRAPHIC IMAGES Routine 12/27/2021 12:00 AM EDT from Last 3 Months or Most Recently Relevant to Health Maintenance Insurance DENTAL - [facility] - [facility] Care Teams Overcoiler Relationship Specialty Start Date End Date Janice Mulligan BDS [address] [place] [phone] PCP - General Dental Land Checker 05/29/24
--- OUTSIDE RECORDS SUMMARY | 2025-03-17 10:16 | XMS_ITS | Encounter Summary ---
Author Organization [employer] Address [address] [facility] 7t [place] [address] Care Team Providers Care Tow Truck Dispatcher Name Role Phone Janice Mulligan BDS Primary Care Provide r Encounter Details Date Type Department Care Team (Latest Contact Info) Description 06/17/2020 Abstract [facility] CONVERSIONS Dental, Provider, DDS Social History Tobacco [...] Description 03/19/2025 3:00 PM EST Office Visit [facility] ADULT DENTAL [address] [place] [address] Solitario Shirley DDS [address] [place] [address] documented as of this encounter Visit Diagnoses Not on filedocumented in this encounter Care Teams Tow Truck Dispatcher Relationship Specialty Start Date End Date Janice Mulligan BDS [address] [place] [address] [phone] PCP - General Dental Estimator 05/29/24 documented as of this encounter
--- OUTSIDE RECORDS SUMMARY | 2025-03-17 10:16 | XMS_ITS | Clinical Summary ---
Author Organization [address] [facility] Address [address] [place] [address] Phone Care Team Providers Care Division Sergeant Name Role Phone Alissa Parker Primary Care Provider [phone] Allergies Active Allergy Reactions Criticality Noted Date Comments Penicillins Rash 04/26/2019 Medications ammonium lactate (LAC-HYDRIN) 12 % lotion Apply to soles of feet daily. At night wear socks to bed 03/14/2023 Active aspirin 81 mg EC tablet Take 1 Tablet by mouth daily. 05/25/2022 Active atorvastatin (LIPITOR) 20 mg tablet Take 20 mg by mouth daily. Active miscellaneous medical supply [facility] B-D 3CC LUER-SAV SYR 25GX1 25G X 1 3 ML [facility] 06/27/2022 Active pen needle,diabetic dual safty 30 [...] EXTRACTION PROCEDURE: HISTORICAL CATARACT REMOVAL SECTION PROCEDURE: ME DELIVERY ONLY HYSTERECTOMY PROCEDURE: HISTORICAL HYSTERECTOMY APPENDECTOMY PROCEDURE: HISTORICAL APPENDECTOMY Medical History Medical History Date Comments Essential (primary) hypertension DX:Essential (primary) hypertension Type 2 diabetes mellitus wit hout complications ([facility] V24, [facility] V28) DX:Type 2 miguelangel betes mellitus without complications ([facility]) Osteoarthritis DX:Osteoarthriti s Social History Tobacco Use [...] 09/03/2024 8:51 AM EDT Plan of Treatment Upcoming Encounters Date Type Department Care Team (Late st Contact Info) Description 04/07/2025 9:15 AM EST Office Visit Orthopedic Surgery - [place] [phone] [facility] [address] [place] [phone] Edgar Kathleen, CORY [address] [facility] [place] [address] [place] [id number] Health Maintenance Due Date Last Done Comments Breast Cancer Screening 1954 Colorectal Cancer Screening: Colonoscopy 1954 Diabetes: Annual Foot Exam 1964 Diabetes: Annual Retina Eye Exam 1964 DTaP,Tdap,and Td Vaccines (1 - Tdap) 1973 Pneumococcal Vaccine: 50+ Years (1 of 2 - PCV) 1973 RSV Immunization Adult Patients (1 - Risk 50-74 years 1-dose series) 2004 Zoster Vaccines (1 of 2) 2004 Falls Risk Assessment 03/15/2022 Hepatitis C Screening 03/15/2022 Medicare Annual Wellness Visit 03/15/2022 Osteoporosis Screening (Bone Density Screening) 03/15/2022 Social Influencers of Health Screening 03/15/2022 Depression Screening 04/17/2024 Diabetes: Annual Urine Albumin-Creatinine Ratio (uACR) 08/24/2024 08/25/2023, 08/25/2023, 02/22/2023, Additional history exists Diabetes: Blood Sugar Control Test (HGBA1C) 11/18/2024 05/21/2024, 08/25/2023 COVID-19 Vaccine ( - season) 2024 Influenza Vaccine (#1) 2024 Diabetes: [...] * Urine Albumin Creatinine Ratio (08/25/2023) Pathologist [facility] Urine Albumin Creatinine Ratio abstracted Historical Provider HEALTH MAINTENANCE Final Result * Annual BMP Blood Test (08/25/2023) Pathologist [facility] Annual BMP Blood Test abstracted Historical Provider HEALTH MAINTENANCE Final Result * Lipid panel (08/25/2023) Pathologist [facility] LDL/HDL Ratio 0 Comment:no interpretation Triglycerides 0 mg/dL Comment:no interpretation Cholesterol 0 mg/dL Comment:no interpretation HDL 0 mg/dL Comment:no interpretation LDL Cholesterol 0 mg/dL Comment:no interpretation Blood Venous blood specimen / Unknown us Historical Provider LAB BLOOD ORDERABLES Katelyn l Result from Last 3 Months or Most Recently Relevant to Health Maintenance Insurance [facility] MEDICARE Member Subscriber Plan / Payer (Ef fective 2020-Present) Name:Teri Melendez Relation to Subscriber:Self Name:Teri Melendez Payer ID:[id number] Group ID:[id number] Type:Not on file Address: [place] [address] [address] [id number] Care Teams Division Sergeant Relationship Specialty Start Date End Date Alissa Parker PA [facility] [place] [address] PCP - General Internal Medicine 06/11/15
== END 2025-03-17 10:11 | disposition home or self-care (01) ==
PROVIDERS: PCP Physician Assistant; Visit Provider Nurse Practitioner Family
DX: E11.40 Type 2 diabetes mellitus with diabetic neuropathy, unspecified (principal); M79.671 Pain in right foot; M79.672 Pain in left foot; M50.30 Other cervical disc degeneration, unspecified cervical region; M51.369 Other intervertebral disc degeneration, lumbar region without mention of lumbar back pain or lower extremity pain; M47.816 Spondylosis without myelopathy or radiculopathy, lumbar region
CPT/HCPCS: 17999; 99214

== ENCOUNTER → 2025-03-17 08:59 | Outpatient (BNVA) | payer OTHER, SELFPAY | PROVIDERS: PCP Physician Assistant; Visit Provider Nurse Practitioner Family | DX: E11.40 Type 2 diabetes mellitus with diabetic neuropathy, unspecified (principal); M79.671 Pain in right foot; M79.672 Pain in left foot; M50.321 Other cervical disc degeneration at C4-C5 level; M50.322 Other cervical disc degeneration at C5-C6 level; M50.323 Other cervical disc degeneration at C6-C7 level; M47.816 Spondylosis without myelopathy or radiculopathy, lumbar region | CPT/HCPCS: 17999; 99212; J7336 ==

== ENCOUNTER 2025-03-24 10:38 | Outpatient (AMB) | payer OTHER, SELFPAY ==
[2025-03-24 10:43] VITALS: BP 166/62; PULSE 82; O2SAT 96; BMI 35.7
--- NOTE | 2025-03-24 10:43 | A.OFFVIS_ITS ---
Vital Signs 03/24/25 10:43 Height 5 ft 2 in Weight 195 lb BMI 35.7 BP 166/62 H Blood Pressure Location Rt brachial Position Sitting Pulse 82 Pulse Source Pulse Oximeter Pulse Oximetry (%) 96 Oxygen Delivery Method Room Air Intake Visit Reasons: Asthma Allergies Penicillins Allergy (Unknown, Verified 03/17/25 09:01) Rash HPI HPI Asthma: Details: 69-year-old lady, [place]-speaking, lifetime nonsmoker, referred for evaluation of dyspnea on exertion/orthopnea, possible calcified lung granuloma, and ONEIL. Patient states that she has been using her CPAP machine until she went on a vacation [place] of [place] for [place] and she has not brought her CPAP machine with her, however she is interested in continue to use her CPAP machine. She does complain of some orthopnea and lower extremity edema, currently not on diuretic therapy. Patient has been hospitalized in [place] in November of 2024 where she had an essentially normal 2D echocardiogram and CT angio chest that showed no pulmonary emboli or worrisome pulmonary nodules. Patient denies family history of lung disease. She denies exposure to industrial dusts. [facility] Medical History Asthma Chronic midline low back pain with right-sided sciatica Onychomycosis Essential hypertension Lumbar radiculopathy, chronic Chronic painful diabetic neuropathy Social History (Updated 03/24/25 @ 10:50 by Samantha Murray [facility]) Patient Tobacco Use Status: Never used Tobacco Review of Systems Const Denies daytime sleepiness, Denies excessive sweating, Denies fatigue, Denies fever(s), Denies lethargy, Denies malaise, Denies night sweats, Denies snoring and Denies weight loss Eyes Denies blurry vision and Denies itchy eyes ENT Denies nasal congestion, Denies post nasal drip, Denies sinus pain, Denies sinus pressure and Denies other ( Thrush) Card Denies chest pain, Reports pedal edema, Denies dyspnea, Reports dyspnea on exertion, Reports orthopnea and Denies paroxysmal nocturnal dyspnea Resp Denies cough, Denies hemoptysis, Denies excessive phlegm production, Denies dyspnea, Reports dyspnea on exertion, Denies snoring and Denies wheezing GI Denies abdominal pain and Denies heartburn Musc Denies myalgias, Denies arthralgias and Denies joint swelling Skin/Breast Denies rash Neuro Denies memory loss and Denies seizure-like activity Psych Denies abnormal sleep pattern, Denies anxiety and Denies memory loss Endo Denies excessive sweating, Denies fatigue and Denies heat intolerance Dennis/Lymph Denies easy bruising Aller/Immun Denies itchy eyes, Denies seasonal rhinorrhea and Denies wheezing Physical Exam Vital Signs: Last Vital Signs Pulse 82 03/24/25 10:43 BP 166/62 H 03/24/25 10:43 Pulse Ox 96 03/24/25 10:43 Oxygen Delivery Method Room Air 03/24/25 10:43 BMI result Body Mass Index 35.7 Const General: no acute distress and alert Nutritional Appearance: not obese Orientation/consciousness: Other orientation findings ( oriented) HEENT Head: Yes atraumatic Eyes General: appearance normal, both eyes and all related structures Sclerae: sclerae normal EOM: EOMs intact bilaterally Neck Neck: Yes supple Lymphatic: no lymphadenopathy noted Resp Effort & Inspection: normal respiratory effort and no use of accessory muscles Auscultation: clear to auscultation bilaterally Cardio Rate: regular rate Rhythm: regular rhythm Heart sounds: no gallops, no murmurs and no rubs Skin General skin exam: other ( warm) Extrem General: No clubbing, No cyanosis and Yes edema (Trace bilateral) Assessment & Plan Assessment & Plan (1) Orthopnea: Code(s): R06.01 - Orthopnea Category: Medical Plan: Appears to have a component of pulmonary edema, will start on empiric diuretic with Lasix 20 mg daily and reassess symptoms in several weeks. (2) Calcified granuloma of lung: Code(s): J98.4 - Other disorders of lung Category: Medical Plan: Results of CT chest from November of 2024 from [place] reviewed, no worrisome pulmonary nodules noted. Will obtain full PFT for evaluation of possible reactive airway disease component. (3) ONEIL (obstructive sleep apnea): Code(s): G47.33 - Obstructive sleep apnea (adult) (pediatric) Category: Medical Plan: Patient has been encouraged to be compliant with CPAP therapy. Orders: Orders PFT pulmonary function test Today J45.909 - Unspecified asthma, uncomplicated Medications: New furosemide (Lasix) 20 mg PO QAM 30 tabs 6RF Coding Level of Care Code New Pt Level 4 (97613) Diagnoses Orthopnea R06.01 Calcified granuloma of lung J98.4 ONEIL (obstructive sleep apnea) G47.33
== END 2025-03-24 11:26 | disposition home or self-care (01) ==
LOC: HO.HPS 10:39
PROVIDERS: PCP Physician Assistant; Referring Provider Nurse Practitioner Family; Visit Provider Internal Medicine Pulmonary Disease
DX: R06.01 Orthopnea (principal); J98.4 Other disorders of lung; G47.33 Obstructive sleep apnea (adult) (pediatric)
CPT/HCPCS: 99204

== ENCOUNTER → 2025-03-24 10:38 | Outpatient (BNVA) | payer OTHER, SELFPAY | PROVIDERS: PCP Physician Assistant; Referring Provider Nurse Practitioner Family; Visit Provider Internal Medicine Pulmonary Disease | DX: R06.01 Orthopnea (principal); J98.4 Other disorders of lung; G47.33 Obstructive sleep apnea (adult) (pediatric) | CPT/HCPCS: 99202 ==